=== PATIENT | female | born 1940 | race Caucasian/White ===

== ENCOUNTER 2021-03-13 17:31 | Inpatient (IN) | payer OTHER ==
[2021-03-13] MEDS ORDERED: SODIUM CHLORIDE 0.9% 500 ML INFUS.BAG IV ONE (17:43)
[2021-03-13 19:29] LABS: HEMATOCRIT 24.6 % (32.4-45.2); HEMOGLOBIN 7.7 GM/dL (10.7-15.3); MCH 27.6 pg (25.7-33.7); MCHC 31.5 g/dl (32.0-36.0); MEAN CELL VOLUME 87.6 fl (80-96); MEAN PLT VOLUME 7.9 fl (7.5-11.1); PLATELET COUNT 502 10^3/uL (134-434); RDW 20.4 % (11.6-15.6)
[2021-03-13 19:35] LABS: INR 1.43 (0.83-1.09); PROTHROMBIN TIME (PATIENT) 16.1 SEC (9.7-13.0)
[2021-03-13 19:47] LABS: CALCIUM 9.2 mg/dL (8.5-10.1)
[2021-03-13 19:48] LABS: BLOOD UREA NITROGEN 58.7 mg/dL (7-18)
[2021-03-13 19:51] LABS: CREATININE 3.6 mg/dL (0.55-1.3)
[2021-03-13] MEDS ORDERED: VANCOMYCIN 1 GM in D5W (PRE-DOCKED) 1,000 MG/250 ML IVPB ONE (19:52)
[2021-03-13 19:53] LABS: BILIRUBIN,TOTAL 0.2 mg/dL (0.2-1); TOT PROT 7.5 g/dl (6.4-8.2)
[2021-03-13] MEDS ORDERED: CEFEPIME HCL/D5W 1 GM/50 ML BAG IVPB ONE (19:54)
[2021-03-13] MEDS ORDERED: VANCOMYCIN 1 GRAM (PRE-DOCKED) 1,000 MG/250 ML BAG IVPB ONE (20:16)
[2021-03-13] MEDS ORDERED: CEFEPIME 1 GM/100 ML BAG IVPB ONE (20:16)
[2021-03-13 21:53] LABS: ANISOCYTOSIS 1+; MACROCYTOSIS 0; PLATELET ESTIMATE INCREASED
[2021-03-14] MEDS ORDERED: PATIENT'S OWN MEDICATION (NON-FORMULARY) (Ipratropium/Albuterol Sulfate 1 PUFF Inhaler) IH PRN (00:06)
[2021-03-14] MEDS ORDERED: ACETAMINOPHEN 650 MG/20.3 ML ORAL SOLUTION (CUPS) PEG PRN (03:37)
[2021-03-14] MEDS: APIXABAN 2.5 MG TABLET GT SCH ×3 (04:00→22:50)
[2021-03-14] MEDS: MIDODRINE HCL 5 MG TABLET GT SCH ×4 (04:00→19:29)
[2021-03-14] MEDS ORDERED: APIXABAN 2.5 MG TABLET ONE ×2 (06:32→08:38)
[2021-03-14] MEDS: levETIRAcetam 500 MG/5 ML ORAL SOLUTION (UNIT-DOSE CUPS) GT SCH ×2 (06:50→19:29)
[2021-03-14 08:13] LABS: BASO % 0.5 % (0-2.0); EOS % 1.1 % (0-4.5); HEMATOCRIT 26.6 % (32.4-45.2); HEMOGLOBIN 8.4 GM/dL (10.7-15.3); LYMPH % 5.4 % (8-40); MCHC 31.7 g/dl (32.0-36.0); MEAN CELL VOLUME 88.3 fl (80-96); MEAN PLT VOLUME 7.9 fl (7.5-11.1); MONO % 9.1 % (3.8-10.2); NEUT % 83.9 % (42.8-82.8); PLATELET COUNT 495 10^3/uL (134-434); RBC 3.02 M/mm3 (3.60-5.2); RDW 20.2 % (11.6-15.6); WHITE BLOOD COUNT 21.5 K/mm3 (4.0-10.0)
[2021-03-14 08:30] LABS: ALBUMIN 2.1 g/dl (3.4-5.0); CALCIUM 10.2 mg/dL (8.5-10.1)
[2021-03-14 08:32] LABS: BLOOD UREA NITROGEN 63.8 mg/dL (7-18)
[2021-03-14 08:35] LABS: BILIRUBIN,TOTAL 0.6 mg/dL (0.2-1); TOT PROT 7.8 g/dl (6.4-8.2)
[2021-03-14] MEDS ORDERED: METOPROLOL TARTRATE 25 MG TABLET (FP) ONE (08:37)
[2021-03-14] MEDS ORDERED: ASPIRIN 81 MG CHEWABLE TABLETS ONE (08:37)
[2021-03-14] MEDS ORDERED: ZINC SULFATE 220 MG CAPSULE (FP) ONE (08:38)
[2021-03-14] MEDS ORDERED: AMIODARONE HCL 200 MG TABLET ONE (08:38)
[2021-03-14] MEDS ORDERED: ALBUTEROL SO4 2.5/IPRATROPIUM 0.5 INH SOL 3 ML VIAL.NEB. NEB PRN (09:16)
[2021-03-14] MEDS: BUDESONIDE 0.5 MG/2 ML INH SUSP VIAL NEB SCH ×2 (09:17→21:05)
[2021-03-14 09:30] LABS: ANISOCYTOSIS 0; MACROCYTOSIS 0; PLATELET ESTIMATE NORMAL; TARGET CELLS 1+
[2021-03-14] MEDS: ZINC SULFATE 220 MG CAPSULE (FP) GT SCH (09:49)
[2021-03-14] MEDS: METOPROLOL TARTRATE 25 MG TABLET (FP) GT SCH ×2 (09:49→22:50)
[2021-03-14] MEDS: ASPIRIN 81 MG CHEWABLE TABLETS GT SCH (09:49)
[2021-03-14] MEDS: FAMOTIDINE 40 MG/5 ML ORAL SUSPENSION NR SCH (09:50)
[2021-03-14] MEDS ORDERED: AMIODARONE HCL 200 MG TABLET GT SCH (10:00)
[2021-03-14 11:33] LABS: EPI CELLS 9 /uL (0-25.1); HYALINE CASTS 8 /uL (0-3.1); URINE APPEARANCE TURBID; URINE BILIRUBIN 2+ (NEGATIVE); URINE COLOR ORANGE; URINE GLUCOSE (UA) NEGATIVE (NEGATIVE); URINE KETONE NEGATIVE (NEGATIVE); URINE LEUK ESTERASE 3+ (NEGATIVE); URINE NITRITE POSITIVE (NEGATIVE); URINE PROTEIN 3+ (NEGATIVE); URINE RBC 469 /uL (0-23.9); URINE WBC 957 /uL (0-25.8)
[2021-03-14 11:45] LABS: YEAST PRESENT (NEGATIVE)
[2021-03-14] MEDS ORDERED: MEROPENEM 1 GM in DEXTROSE 5%-WATER 100 ML IVPB SCH (18:00)
[2021-03-14] MEDS ORDERED: MEROPENEM 1 GM in DEXTROSE 5%-WATER 100 ML IVPB ONE (18:15)
[2021-03-14] MEDS ORDERED: MEROPENEM 1 GM VIAL (RESTRICTED TO ID) IVPB ONE (18:30)
[2021-03-14] MEDS ORDERED: MEROPENEM 500 MG in DEXTROSE 5%-WATER 100 ML IVPB SCH (18:45)
[2021-03-14] MEDS ORDERED: CEFEPIME 0.5 GM in DEXTROSE 5%-WATER - 100 ML IVPB SCH (20:00)
[2021-03-14] MEDS ORDERED: PT OWN MED DRAWER 7, Y5N ONE (23:10)
[2021-03-15] MEDS ORDERED: MEROPENEM 500 MG VIAL (RESTRICTED TO ID) IVPB ONE ×2 (06:35→18:02)
[2021-03-15] MEDS ORDERED: PT OWN MED DRAWER 7, Y5N ONE ×4 (06:36→10:44)
[2021-03-15] MEDS ORDERED: DEXTROSE 5%-WATER 100 ML IVPB ONE ×2 (06:36→18:02)
[2021-03-15] MEDS: levETIRAcetam 500 MG/5 ML ORAL SOLUTION (UNIT-DOSE CUPS) GT SCH ×2 (06:53→18:12)
[2021-03-15] MEDS: MEROPENEM 500 MG in DEXTROSE 5%-WATER 100 ML IVPB SCH ×2 (06:53→18:12)
[2021-03-15 07:03] LABS: BASO % 0.8 % (0-2.0); EOS % 2.6 % (0-4.5); HEMATOCRIT 25.2 % (32.4-45.2); HEMOGLOBIN 8.1 GM/dL (10.7-15.3); MCH 28.5 pg (25.7-33.7); MCHC 32.3 g/dl (32.0-36.0); MEAN CELL VOLUME 88.3 fl (80-96); MEAN PLT VOLUME 7.6 fl (7.5-11.1); MONO % 8.7 % (3.8-10.2); NEUT % 81.9 % (42.8-82.8); PLATELET COUNT 452 10^3/uL (134-434); RBC 2.86 M/mm3 (3.60-5.2); WHITE BLOOD COUNT 18.6 K/mm3 (4.0-10.0)
[2021-03-15 07:31] LABS: ALBUMIN 1.9 g/dl (3.4-5.0); BLOOD UREA NITROGEN 76.2 mg/dL (7-18); CALCIUM 9.5 mg/dL (8.5-10.1)
[2021-03-15 07:32] LABS: BILIRUBIN,TOTAL 0.2 mg/dL (0.2-1); MAGNESIUM 3.2 mg/dL (1.8-2.4)
[2021-03-15 07:33] LABS: TOT PROT 7.1 g/dl (6.4-8.2)
[2021-03-15 07:34] LABS: CREATININE 4.9 mg/dL (0.55-1.3)
[2021-03-15] MEDS: BUDESONIDE 0.5 MG/2 ML INH SUSP VIAL NEB SCH ×2 (07:35→19:54)
[2021-03-15] MEDS: MIDODRINE HCL 5 MG TABLET GT SCH ×4 (07:43→18:12)
[2021-03-15] MEDS ORDERED: SODIUM CHLORIDE 250 ML IV PRN (07:53)
[2021-03-15] MEDS ORDERED: EPOETIN ALFA-EPBX 4,000 UNIT/ML VIAL SQ ONE (09:00)
[2021-03-15 10:03] LABS: N-TERMINAL BNP 7175.8 pg/ml (5-450)
[2021-03-15] MEDS: METOPROLOL TARTRATE 25 MG TABLET (FP) GT SCH (10:45)
[2021-03-15] MEDS: FAMOTIDINE 40 MG/5 ML ORAL SUSPENSION NR SCH (10:45)
[2021-03-15] MEDS: ZINC SULFATE 220 MG CAPSULE (FP) GT SCH (10:45)
[2021-03-15] MEDS: APIXABAN 2.5 MG TABLET GT SCH (10:45)
[2021-03-15] MEDS: ASPIRIN 81 MG CHEWABLE TABLETS GT SCH (10:45)
[2021-03-15] MEDS ORDERED: PROPOFOL 200 MG/20 ML VIAL IVPUSH ONE ×2 (12:45→13:08)
[2021-03-15] MEDS ORDERED: PROPOFOL 1,000,000 MCG/100 ML VIAL ONE (12:48)
[2021-03-15 13:09] VITALS: BMI 29.4
[2021-03-15] MEDS ORDERED: SODIUM CHLORIDE 500 ML IV STA ×2 (13:13→18:37)
[2021-03-16] MEDS: APIXABAN 2.5 MG TABLET GT SCH ×3 (00:09→21:18)
[2021-03-16] MEDS: METOPROLOL TARTRATE 25 MG TABLET (FP) GT SCH ×3 (00:09→21:18)
[2021-03-16] MEDS ORDERED: DEXTROSE 5%-WATER 100 ML IVPB ONE ×2 (05:20→18:12)
[2021-03-16] MEDS ORDERED: MEROPENEM 500 MG VIAL (RESTRICTED TO ID) IVPB ONE ×2 (05:20→18:12)
[2021-03-16] MEDS ORDERED: PT OWN MED DRAWER 7, Y5N ONE ×3 (05:26→17:32)
[2021-03-16] MEDS: levETIRAcetam 500 MG/5 ML ORAL SOLUTION (UNIT-DOSE CUPS) GT SCH ×2 (06:01→17:29)
[2021-03-16] MEDS: MEROPENEM 500 MG in DEXTROSE 5%-WATER 100 ML IVPB SCH ×2 (06:01→18:13)
[2021-03-16 07:37] LABS: BASO % 0.7 % (0-2.0); EOS % 3.8 % (0-4.5); HEMATOCRIT 25.9 % (32.4-45.2); HEMOGLOBIN 8.3 GM/dL (10.7-15.3); LYMPH % 5.2 % (8-40); MCH 28.2 pg (25.7-33.7); MEAN PLT VOLUME 7.9 fl (7.5-11.1); NEUT % 84.3 % (42.8-82.8); PLATELET COUNT 457 10^3/uL (134-434); RBC 2.94 M/mm3 (3.60-5.2); RDW 19.8 % (11.6-15.6); WHITE BLOOD COUNT 16.1 K/mm3 (4.0-10.0)
[2021-03-16 07:54] LABS: CALCIUM 9.3 mg/dL (8.5-10.1)
[2021-03-16 07:55] LABS: ALBUMIN 2.1 g/dl (3.4-5.0); MAGNESIUM 2.5 mg/dL (1.8-2.4)
[2021-03-16 07:58] LABS: CREATININE 2.9 mg/dL (0.55-1.3); PHOSPHOROUS 2.8 mg/dL (2.5-4.9)
[2021-03-16 07:59] LABS: BILIRUBIN,TOTAL 0.3 mg/dL (0.2-1)
[2021-03-16 08:00] LABS: TOT PROT 6.9 g/dl (6.4-8.2)
[2021-03-16 08:21] LABS: BLOOD UREA NITROGEN 31.7 mg/dL (7-18)
[2021-03-16] MEDS: BUDESONIDE 0.5 MG/2 ML INH SUSP VIAL NEB SCH ×2 (08:44→20:40)
[2021-03-16] MEDS ORDERED: SODIUM CHLORIDE 250 ML IV PRN (10:45)
[2021-03-16] MEDS: ASPIRIN 81 MG CHEWABLE TABLETS GT SCH (11:40)
[2021-03-16] MEDS: ZINC SULFATE 220 MG CAPSULE (FP) GT SCH (11:40)
[2021-03-16] MEDS: MIDODRINE HCL 5 MG TABLET GT SCH ×3 (11:40→18:12)
[2021-03-16] MEDS: FAMOTIDINE 40 MG/5 ML ORAL SUSPENSION NR SCH (11:42)
[2021-03-16] MEDS ORDERED: VANCOMYCIN 1 GM in D5W (PRE-DOCKED) 1,000 MG/250 ML IVPB ONE (14:55)
[2021-03-17] MEDS ORDERED: MEROPENEM 500 MG VIAL (RESTRICTED TO ID) IVPB ONE ×2 (05:57→16:50)
[2021-03-17] MEDS ORDERED: DEXTROSE 5%-WATER 100 ML IVPB ONE ×2 (05:58→16:50)
[2021-03-17] MEDS ORDERED: PT OWN MED DRAWER 7, Y5N ONE ×3 (05:58→16:51)
[2021-03-17] MEDS: MEROPENEM 500 MG in DEXTROSE 5%-WATER 100 ML IVPB SCH ×2 (06:00→18:04)
[2021-03-17] MEDS: levETIRAcetam 500 MG/5 ML ORAL SOLUTION (UNIT-DOSE CUPS) GT SCH ×2 (06:00→17:17)
[2021-03-17 06:59] LABS: BASO % 1.2 % (0-2.0); EOS % 4.5 % (0-4.5); HEMATOCRIT 24.7 % (32.4-45.2); HEMOGLOBIN 8.1 GM/dL (10.7-15.3); LYMPH % 4.8 % (8-40); MCH 28.8 pg (25.7-33.7); MCHC 32.6 g/dl (32.0-36.0); MEAN CELL VOLUME 88.5 fl (80-96); MEAN PLT VOLUME 7.7 fl (7.5-11.1); MONO % 5.4 % (3.8-10.2); NEUT % 84.1 % (42.8-82.8); PLATELET COUNT 438 10^3/uL (134-434); RDW 19.8 % (11.6-15.6); WHITE BLOOD COUNT 17.5 K/mm3 (4.0-10.0)
[2021-03-17 07:24] LABS: CALCIUM 9.3 mg/dL (8.5-10.1)
[2021-03-17 07:25] LABS: ALBUMIN 1.8 g/dl (3.4-5.0); BLOOD UREA NITROGEN 43.3 mg/dL (7-18); MAGNESIUM 2.4 mg/dL (1.8-2.4)
[2021-03-17 07:28] LABS: PHOSPHOROUS 3.5 mg/dL (2.5-4.9)
[2021-03-17 07:29] LABS: BILIRUBIN,TOTAL 0.7 mg/dL (0.2-1)
[2021-03-17 07:30] LABS: TOT PROT 6.7 g/dl (6.4-8.2)
[2021-03-17] MEDS: BUDESONIDE 0.5 MG/2 ML INH SUSP VIAL NEB SCH ×2 (08:26→20:45)
[2021-03-17] MEDS: APIXABAN 2.5 MG TABLET GT SCH ×2 (11:08→21:31)
[2021-03-17] MEDS: ZINC SULFATE 220 MG CAPSULE (FP) GT SCH (11:08)
[2021-03-17] MEDS: METOPROLOL TARTRATE 25 MG TABLET (FP) GT SCH ×2 (11:09→21:31)
[2021-03-17] MEDS: ASPIRIN 81 MG CHEWABLE TABLETS GT SCH (11:09)
[2021-03-17] MEDS: MIDODRINE HCL 5 MG TABLET GT SCH ×3 (11:10→17:10)
[2021-03-17] MEDS: FAMOTIDINE 40 MG/5 ML ORAL SUSPENSION NR SCH (11:18)
[2021-03-18] MEDS ORDERED: MEROPENEM 500 MG VIAL (RESTRICTED TO ID) IVPB ONE ×2 (05:55→16:28)
[2021-03-18] MEDS ORDERED: DEXTROSE 5%-WATER 100 ML IVPB ONE ×2 (05:55→16:28)
[2021-03-18] MEDS ORDERED: PT OWN MED DRAWER 7, Y5N ONE ×2 (05:56→09:45)
[2021-03-18] MEDS: levETIRAcetam 500 MG/5 ML ORAL SOLUTION (UNIT-DOSE CUPS) GT SCH ×2 (06:02→17:19)
[2021-03-18] MEDS: MEROPENEM 500 MG in DEXTROSE 5%-WATER 100 ML IVPB SCH ×2 (06:02→18:04)
[2021-03-18 06:43] LABS: HEMATOCRIT 25.8 % (32.4-45.2); HEMOGLOBIN 8.2 GM/dL (10.7-15.3); MCH 28.1 pg (25.7-33.7); MCHC 31.6 g/dl (32.0-36.0); MEAN CELL VOLUME 88.9 fl (80-96); MEAN PLT VOLUME 7.8 fl (7.5-11.1); PLATELET COUNT 444 10^3/uL (134-434); RBC 2.91 M/mm3 (3.60-5.2); RDW 19.7 % (11.6-15.6); WHITE BLOOD COUNT 15.6 K/mm3 (4.0-10.0)
[2021-03-18 06:56] LABS: CALCIUM 9.5 mg/dL (8.5-10.1)
[2021-03-18 06:57] LABS: BLOOD UREA NITROGEN 25.4 mg/dL (7-18)
[2021-03-18 07:00] LABS: CREATININE 2.8 mg/dL (0.55-1.3)
[2021-03-18 07:02] LABS: BILIRUBIN,TOTAL 0.3 mg/dL (0.2-1); TOT PROT 6.9 g/dl (6.4-8.2)
[2021-03-18] MEDS: METOPROLOL TARTRATE 25 MG TABLET (FP) GT SCH ×2 (09:43→21:15)
[2021-03-18] MEDS: APIXABAN 2.5 MG TABLET GT SCH ×2 (09:46→21:15)
[2021-03-18] MEDS: ZINC SULFATE 220 MG CAPSULE (FP) GT SCH (09:46)
[2021-03-18] MEDS: ASPIRIN 81 MG CHEWABLE TABLETS GT SCH (09:46)
[2021-03-18] MEDS: MIDODRINE HCL 5 MG TABLET GT SCH ×3 (09:46→17:19)
[2021-03-18] MEDS: FAMOTIDINE 40 MG/5 ML ORAL SUSPENSION NR SCH (09:46)
[2021-03-18] MEDS: BUDESONIDE 0.5 MG/2 ML INH SUSP VIAL NEB SCH ×2 (09:53→21:00)
[2021-03-18 11:32] LABS: MAGNESIUM 2.5 mg/dL (1.8-2.4)
[2021-03-19] MEDS: levETIRAcetam 500 MG/5 ML ORAL SOLUTION (UNIT-DOSE CUPS) GT SCH ×2 (05:33→18:58)
[2021-03-19] MEDS ORDERED: MEROPENEM 500 MG VIAL (RESTRICTED TO ID) IVPB ONE ×2 (05:54→18:11)
[2021-03-19] MEDS ORDERED: DEXTROSE 5%-WATER 100 ML IVPB ONE ×2 (05:55→18:11)
[2021-03-19] MEDS: MEROPENEM 500 MG in DEXTROSE 5%-WATER 100 ML IVPB SCH ×2 (06:00→18:19)
[2021-03-19 06:40] LABS: HEMATOCRIT 24.9 % (32.4-45.2); HEMOGLOBIN 7.9 GM/dL (10.7-15.3); MCH 28.2 pg (25.7-33.7); MCHC 31.8 g/dl (32.0-36.0); MEAN CELL VOLUME 88.4 fl (80-96); MEAN PLT VOLUME 7.7 fl (7.5-11.1); PLATELET COUNT 437 10^3/uL (134-434); RBC 2.82 M/mm3 (3.60-5.2); RDW 20.2 % (11.6-15.6); WHITE BLOOD COUNT 17.1 K/mm3 (4.0-10.0)
[2021-03-19 06:54] LABS: CALCIUM 9.4 mg/dL (8.5-10.1)
[2021-03-19 06:55] LABS: BLOOD UREA NITROGEN 40.7 mg/dL (7-18); MAGNESIUM 2.7 mg/dL (1.8-2.4)
[2021-03-19 06:58] LABS: BILIRUBIN,TOTAL 0.3 mg/dL (0.2-1); CREATININE 3.8 mg/dL (0.55-1.3); PHOSPHOROUS 3.5 mg/dL (2.5-4.9); TOT PROT 6.7 g/dl (6.4-8.2)
[2021-03-19] MEDS: BUDESONIDE 0.5 MG/2 ML INH SUSP VIAL NEB SCH ×2 (08:52→20:25)
[2021-03-19] MEDS: APIXABAN 2.5 MG TABLET GT SCH ×2 (09:12→21:27)
[2021-03-19] MEDS: ASPIRIN 81 MG CHEWABLE TABLETS GT SCH (09:12)
[2021-03-19] MEDS: FAMOTIDINE 40 MG/5 ML ORAL SUSPENSION NR SCH (09:13)
[2021-03-19] MEDS ORDERED: PT OWN MED DRAWER 7, Y5N ONE ×3 (09:28→18:11)
[2021-03-19] MEDS: MIDODRINE HCL 5 MG TABLET GT SCH ×3 (10:00→18:19)
[2021-03-19] MEDS: ZINC SULFATE 220 MG CAPSULE (FP) GT SCH (10:13)
[2021-03-19] MEDS: METOPROLOL TARTRATE 25 MG TABLET (FP) GT SCH ×2 (12:56→21:02)
[2021-03-19] MEDS: AMINO ACIDS/PROTEIN HYDROLYS 30 ML LIQUID.PKT PO SCH (18:19)
[2021-03-20] MEDS ORDERED: MEROPENEM 500 MG VIAL (RESTRICTED TO ID) IVPB ONE ×2 (05:55→17:49)
[2021-03-20] MEDS ORDERED: DEXTROSE 5%-WATER 100 ML IVPB ONE ×2 (05:56→17:49)
[2021-03-20] MEDS: levETIRAcetam 500 MG/5 ML ORAL SOLUTION (UNIT-DOSE CUPS) GT SCH ×2 (06:00→17:52)
[2021-03-20] MEDS: MEROPENEM 500 MG in DEXTROSE 5%-WATER 100 ML IVPB SCH ×2 (06:00→18:02)
[2021-03-20] MEDS ORDERED: SODIUM CHLORIDE 250 ML IV PRN (07:00)
[2021-03-20] MEDS ORDERED: EPOETIN ALFA-EPBX 10,000 UNIT/ML VIAL SQ ONE (07:00)
[2021-03-20 07:46] LABS: HEMATOCRIT 24.9 % (32.4-45.2); MCH 28.2 pg (25.7-33.7); MCHC 32.4 g/dl (32.0-36.0); MEAN CELL VOLUME 87.1 fl (80-96); MEAN PLT VOLUME 8.3 fl (7.5-11.1); PLATELET COUNT 416 10^3/uL (134-434); RBC 2.85 M/mm3 (3.60-5.2)
[2021-03-20] MEDS: AMINO ACIDS/PROTEIN HYDROLYS 30 ML LIQUID.PKT PO SCH ×2 (07:56→17:52)
[2021-03-20] MEDS: BUDESONIDE 0.5 MG/2 ML INH SUSP VIAL NEB SCH ×2 (08:06→20:53)
[2021-03-20 08:12] LABS: CALCIUM 9.5 mg/dL (8.5-10.1)
[2021-03-20] MEDS ORDERED: SODIUM CHLORIDE 250 ML IV STA (08:12)
[2021-03-20 08:13] LABS: ALBUMIN 1.8 g/dl (3.4-5.0); BLOOD UREA NITROGEN 57.1 mg/dL (7-18)
[2021-03-20 08:16] LABS: CREATININE 4.7 mg/dL (0.55-1.3)
[2021-03-20 08:17] LABS: BILIRUBIN,TOTAL 0.4 mg/dL (0.2-1); TOT PROT 6.8 g/dl (6.4-8.2)
[2021-03-20] MEDS ORDERED: PT OWN MED DRAWER 7, Y5N ONE ×2 (09:18→17:50)
[2021-03-20] MEDS: ASPIRIN 81 MG CHEWABLE TABLETS GT SCH (09:38)
[2021-03-20] MEDS: FAMOTIDINE 40 MG/5 ML ORAL SUSPENSION NR SCH (09:38)
[2021-03-20] MEDS: VITAMIN B COMP W-C 1 EA TABLET (NEPHRO-VITE) PO SCH (09:38)
[2021-03-20] MEDS: ZINC SULFATE 220 MG CAPSULE (FP) GT SCH (09:38)
[2021-03-20] MEDS: MIDODRINE HCL 5 MG TABLET GT SCH ×3 (09:39→17:52)
[2021-03-20] MEDS: APIXABAN 2.5 MG TABLET GT SCH ×2 (09:39→22:46)
[2021-03-20] MEDS: METOPROLOL TARTRATE 25 MG TABLET (FP) GT SCH ×2 (09:39→22:46)
[2021-03-21] MEDS ORDERED: MEROPENEM 500 MG VIAL (RESTRICTED TO ID) IVPB ONE ×2 (05:32→18:45)
[2021-03-21] MEDS ORDERED: DEXTROSE 5%-WATER 100 ML IVPB ONE ×2 (05:32→18:45)
[2021-03-21] MEDS: levETIRAcetam 500 MG/5 ML ORAL SOLUTION (UNIT-DOSE CUPS) GT SCH ×2 (06:49→18:29)
[2021-03-21] MEDS: MEROPENEM 500 MG in DEXTROSE 5%-WATER 100 ML IVPB SCH ×2 (06:49→19:30)
[2021-03-21 07:57] LABS: HEMATOCRIT 22.9 % (32.4-45.2); HEMOGLOBIN 7.3 GM/dL (10.7-15.3); MCH 28.2 pg (25.7-33.7); MCHC 31.8 g/dl (32.0-36.0); MEAN CELL VOLUME 88.5 fl (80-96); MEAN PLT VOLUME 7.9 fl (7.5-11.1); PLATELET COUNT 376 10^3/uL (134-434); RBC 2.59 M/mm3 (3.60-5.2); RDW 20.1 % (11.6-15.6)
[2021-03-21] MEDS: BUDESONIDE 0.5 MG/2 ML INH SUSP VIAL NEB SCH ×2 (08:04→20:40)
[2021-03-21 08:17] LABS: ALBUMIN 1.9 g/dl (3.4-5.0); CALCIUM 9.4 mg/dL (8.5-10.1)
[2021-03-21 08:18] LABS: BLOOD UREA NITROGEN 34.6 mg/dL (7-18); MAGNESIUM 2.7 mg/dL (1.8-2.4)
[2021-03-21 08:20] LABS: CREATININE 2.9 mg/dL (0.55-1.3)
[2021-03-21 08:21] LABS: PHOSPHOROUS 2.6 mg/dL (2.5-4.9)
[2021-03-21 08:22] LABS: BILIRUBIN,TOTAL 0.2 mg/dL (0.2-1); TOT PROT 6.6 g/dl (6.4-8.2)
[2021-03-21] MEDS ORDERED: PT OWN MED DRAWER 7, Y5N ONE (08:55)
[2021-03-21] MEDS: AMINO ACIDS/PROTEIN HYDROLYS 30 ML LIQUID.PKT PO SCH ×2 (09:25→18:29)
[2021-03-21] MEDS: APIXABAN 2.5 MG TABLET GT SCH ×2 (09:26→22:35)
[2021-03-21] MEDS: METOPROLOL TARTRATE 25 MG TABLET (FP) GT SCH ×2 (09:26→22:35)
[2021-03-21] MEDS: VITAMIN B COMP W-C 1 EA TABLET (NEPHRO-VITE) PO SCH (09:26)
[2021-03-21] MEDS: MIDODRINE HCL 5 MG TABLET GT SCH ×3 (09:26→18:29)
[2021-03-21] MEDS: ASPIRIN 81 MG CHEWABLE TABLETS GT SCH (09:26)
[2021-03-21] MEDS: ZINC SULFATE 220 MG CAPSULE (FP) GT SCH (09:26)
[2021-03-21] MEDS: FAMOTIDINE 40 MG/5 ML ORAL SUSPENSION NR SCH (09:26)
[2021-03-21] MEDS: NAPH,MB-DB/K PH,MBDB POWDER PACKET PO SCH ×2 (15:24→22:35)
[2021-03-22] MEDS: levETIRAcetam 500 MG/5 ML ORAL SOLUTION (UNIT-DOSE CUPS) GT SCH ×2 (06:15→17:19)
[2021-03-22 06:43] LABS: HEMATOCRIT 23.8 % (32.4-45.2); HEMOGLOBIN 7.7 GM/dL (10.7-15.3); MCH 28.6 pg (25.7-33.7); MCHC 32.1 g/dl (32.0-36.0); MEAN PLT VOLUME 7.9 fl (7.5-11.1); PLATELET COUNT 363 10^3/uL (134-434); RBC 2.68 M/mm3 (3.60-5.2); WHITE BLOOD COUNT 13.2 K/mm3 (4.0-10.0)
[2021-03-22 06:56] LABS: CALCIUM 8.9 mg/dL (8.5-10.1)
[2021-03-22 06:57] LABS: BLOOD UREA NITROGEN 58.4 mg/dL (7-18); MAGNESIUM 2.7 mg/dL (1.8-2.4)
[2021-03-22 06:59] LABS: CREATININE 4.2 mg/dL (0.55-1.3)
[2021-03-22 07:00] LABS: PHOSPHOROUS 3.7 mg/dL (2.5-4.9)
[2021-03-22] MEDS: MEROPENEM 500 MG in DEXTROSE 5%-WATER 100 ML IVPB SCH ×2 (07:01→19:11)
[2021-03-22] MEDS: BUDESONIDE 0.5 MG/2 ML INH SUSP VIAL NEB SCH ×2 (07:54→20:41)
[2021-03-22] MEDS: AMINO ACIDS/PROTEIN HYDROLYS 30 ML LIQUID.PKT PO SCH ×2 (08:05→17:19)
[2021-03-22] MEDS ORDERED: SODIUM CHLORIDE 0.9% 500 ML INFUS.BAG IV PRN (08:05)
[2021-03-22] MEDS ORDERED: FAMOTIDINE 40 MG/5 ML ORAL SUSPENSION NR SCH (10:00)
[2021-03-22] MEDS ORDERED: SODIUM CHLORIDE 250 ML IV PRN (10:09)
[2021-03-22] MEDS ORDERED: EPOETIN ALFA-EPBX 10,000 UNIT/ML VIAL SQ ONE (10:15)
[2021-03-22] MEDS ORDERED: PT OWN MED DRAWER 7, Y5N ONE (10:43)
[2021-03-22] MEDS: METOPROLOL TARTRATE 25 MG TABLET (FP) GT SCH ×2 (10:44→21:43)
[2021-03-22] MEDS: VITAMIN B COMP W-C 1 EA TABLET (NEPHRO-VITE) PO SCH (10:44)
[2021-03-22] MEDS: ZINC SULFATE 220 MG CAPSULE (FP) GT SCH (10:44)
[2021-03-22] MEDS: MIDODRINE HCL 5 MG TABLET GT SCH ×3 (10:44→17:21)
[2021-03-22] MEDS: ASPIRIN 81 MG CHEWABLE TABLETS GT SCH (10:44)
[2021-03-22] MEDS: APIXABAN 2.5 MG TABLET GT SCH ×2 (10:45→21:43)
[2021-03-22] MEDS: FAMOTIDINE 40 MG/5 ML ORAL SUSPENSION NR SCH (10:45)
[2021-03-22] MEDS: ALBUTEROL SO4 2.5/IPRATROPIUM 0.5 INH SOL 3 ML VIAL.NEB. NEB PRN (20:42)
[2021-03-23] MEDS: ALBUTEROL SO4 2.5/IPRATROPIUM 0.5 INH SOL 3 ML VIAL.NEB. NEB PRN (03:17)
[2021-03-23] MEDS: levETIRAcetam 500 MG/5 ML ORAL SOLUTION (UNIT-DOSE CUPS) GT SCH ×2 (06:18→17:37)
[2021-03-23] MEDS ORDERED: DEXTROSE 5%-WATER 100 ML IVPB ONE ×3 (06:19→18:52)
[2021-03-23] MEDS ORDERED: MEROPENEM 500 MG VIAL (RESTRICTED TO ID) IVPB ONE ×3 (06:19→18:52)
[2021-03-23] MEDS: MEROPENEM 500 MG in DEXTROSE 5%-WATER 100 ML IVPB SCH ×2 (06:21→18:50)
[2021-03-23 06:24] LABS: HEMATOCRIT 25.5 % (32.4-45.2); HEMOGLOBIN 8.1 GM/dL (10.7-15.3); MCH 28.3 pg (25.7-33.7); MCHC 31.9 g/dl (32.0-36.0); MEAN CELL VOLUME 88.8 fl (80-96); MEAN PLT VOLUME 7.7 fl (7.5-11.1); PLATELET COUNT 368 10^3/uL (134-434); RBC 2.87 M/mm3 (3.60-5.2); RDW 19.9 % (11.6-15.6); WHITE BLOOD COUNT 15.6 K/mm3 (4.0-10.0)
[2021-03-23 06:44] LABS: BLOOD UREA NITROGEN 39.5 mg/dL (7-18); CALCIUM 9.4 mg/dL (8.5-10.1)
[2021-03-23 06:47] LABS: CREATININE 2.9 mg/dL (0.55-1.3)
[2021-03-23] MEDS ORDERED: PT OWN MED DRAWER 7, Y5N ONE (07:45)
[2021-03-23] MEDS: BUDESONIDE 0.5 MG/2 ML INH SUSP VIAL NEB SCH ×2 (08:15→20:40)
[2021-03-23] MEDS: AMINO ACIDS/PROTEIN HYDROLYS 30 ML LIQUID.PKT PO SCH ×2 (08:59→17:35)
[2021-03-23] MEDS: ASPIRIN 81 MG CHEWABLE TABLETS GT SCH (10:17)
[2021-03-23] MEDS: MIDODRINE HCL 5 MG TABLET GT SCH ×3 (10:17→17:35)
[2021-03-23] MEDS: ZINC SULFATE 220 MG CAPSULE (FP) GT SCH (10:18)
[2021-03-23] MEDS: VITAMIN B COMP W-C 1 EA TABLET (NEPHRO-VITE) PO SCH (10:18)
[2021-03-23] MEDS: APIXABAN 2.5 MG TABLET GT SCH ×2 (10:18→22:02)
[2021-03-23] MEDS: METOPROLOL TARTRATE 25 MG TABLET (FP) GT SCH ×2 (10:19→22:02)
[2021-03-23] MEDS ORDERED: EPOETIN ALFA-EPBX 10,000 UNIT/ML VIAL SQ ONE (11:51)
[2021-03-23] MEDS: ACETAMINOPHEN 650 MG/20.3 ML ORAL SOLUTION (CUPS) PEG PRN (17:35)
[2021-03-24] MEDS ORDERED: MEROPENEM 500 MG VIAL (RESTRICTED TO ID) IVPB ONE ×2 (05:32→18:27)
[2021-03-24] MEDS ORDERED: DEXTROSE 5%-WATER 100 ML IVPB ONE ×2 (05:32→18:27)
[2021-03-24] MEDS: levETIRAcetam 500 MG/5 ML ORAL SOLUTION (UNIT-DOSE CUPS) GT SCH ×2 (05:37→18:32)
[2021-03-24] MEDS: MEROPENEM 500 MG in DEXTROSE 5%-WATER 100 ML IVPB SCH ×2 (06:01→18:33)
[2021-03-24 08:20] LABS: BASO % 0.6 % (0-2.0); EOS % 6.1 % (0-4.5); HEMATOCRIT 25.1 % (32.4-45.2); HEMOGLOBIN 7.8 GM/dL (10.7-15.3); LYMPH % 8.2 % (8-40); MCH 28.2 pg (25.7-33.7); MCHC 31.1 g/dl (32.0-36.0); MEAN CELL VOLUME 90.8 fl (80-96); MEAN PLT VOLUME 8.1 fl (7.5-11.1); MONO % 5.7 % (3.8-10.2); NEUT % 79.4 % (42.8-82.8); PLATELET COUNT 408 10^3/uL (134-434); RBC 2.76 M/mm3 (3.60-5.2); RDW 20.3 % (11.6-15.6); WHITE BLOOD COUNT 18.1 K/mm3 (4.0-10.0)
[2021-03-24] MEDS: BUDESONIDE 0.5 MG/2 ML INH SUSP VIAL NEB SCH ×2 (08:29→19:56)
[2021-03-24 08:35] LABS: CALCIUM 9.9 mg/dL (8.5-10.1)
[2021-03-24 08:36] LABS: BLOOD UREA NITROGEN 63.1 mg/dL (7-18); MAGNESIUM 2.8 mg/dL (1.8-2.4)
[2021-03-24] MEDS: MIDODRINE HCL 5 MG TABLET GT SCH ×3 (08:50→18:32)
[2021-03-24] MEDS ORDERED: SODIUM CHLORIDE 250 ML IV PRN (09:00)
[2021-03-24] MEDS ORDERED: EPOETIN ALFA-EPBX 10,000 UNIT/ML VIAL IVPUSH ONE (09:00)
[2021-03-24] MEDS: APIXABAN 2.5 MG TABLET GT SCH ×2 (11:19→21:39)
[2021-03-24] MEDS: ZINC SULFATE 220 MG CAPSULE (FP) GT SCH (11:19)
[2021-03-24] MEDS: ASPIRIN 81 MG CHEWABLE TABLETS GT SCH (11:19)
[2021-03-24] MEDS: AMINO ACIDS/PROTEIN HYDROLYS 30 ML LIQUID.PKT PO SCH ×2 (11:19→18:32)
[2021-03-24] MEDS: VITAMIN B COMP W-C 1 EA TABLET (NEPHRO-VITE) PO SCH (11:19)
[2021-03-24] MEDS: FAMOTIDINE 40 MG/5 ML ORAL SUSPENSION NR SCH (11:23)
[2021-03-24] MEDS: METOPROLOL TARTRATE 25 MG TABLET (FP) GT SCH ×2 (11:34→21:39)
[2021-03-25] MEDS ORDERED: MEROPENEM 500 MG VIAL (RESTRICTED TO ID) IVPB ONE ×2 (05:41→18:07)
[2021-03-25] MEDS ORDERED: DEXTROSE 5%-WATER 100 ML IVPB ONE ×2 (05:41→18:07)
[2021-03-25] MEDS: levETIRAcetam 500 MG/5 ML ORAL SOLUTION (UNIT-DOSE CUPS) GT SCH ×2 (06:25→17:59)
[2021-03-25] MEDS: MEROPENEM 500 MG in DEXTROSE 5%-WATER 100 ML IVPB SCH ×2 (06:26→18:08)
[2021-03-25] MEDS: BUDESONIDE 0.5 MG/2 ML INH SUSP VIAL NEB SCH ×2 (08:00→20:35)
[2021-03-25] MEDS: ASPIRIN 81 MG CHEWABLE TABLETS GT SCH (11:29)
[2021-03-25] MEDS: APIXABAN 2.5 MG TABLET GT SCH ×2 (11:29→21:35)
[2021-03-25] MEDS: VITAMIN B COMP W-C 1 EA TABLET (NEPHRO-VITE) PO SCH (11:29)
[2021-03-25] MEDS: ZINC SULFATE 220 MG CAPSULE (FP) GT SCH (11:29)
[2021-03-25] MEDS: MIDODRINE HCL 5 MG TABLET GT SCH ×3 (11:30→17:59)
[2021-03-25] MEDS: AMINO ACIDS/PROTEIN HYDROLYS 30 ML LIQUID.PKT PO SCH ×2 (11:30→17:59)
[2021-03-25 11:50] LABS: HEMATOCRIT 24.7 % (32.4-45.2); HEMOGLOBIN 7.8 GM/dL (10.7-15.3); MCH 28.2 pg (25.7-33.7); MCHC 31.4 g/dl (32.0-36.0); MEAN CELL VOLUME 89.7 fl (80-96); MEAN PLT VOLUME 7.8 fl (7.5-11.1); PLATELET COUNT 352 10^3/uL (134-434); RBC 2.75 M/mm3 (3.60-5.2); RDW 20.4 % (11.6-15.6); WHITE BLOOD COUNT 14.6 K/mm3 (4.0-10.0)
[2021-03-25 12:12] LABS: CALCIUM 10.1 mg/dL (8.5-10.1)
[2021-03-25 12:16] LABS: CREATININE 3.2 mg/dL (0.55-1.3)
[2021-03-25] MEDS: METOPROLOL TARTRATE 25 MG TABLET (FP) GT SCH ×2 (13:40→21:35)
[2021-03-25] MEDS ORDERED: PT OWN MED DRAWER 7, Y5N ONE ×3 (13:43→17:57)
[2021-03-25] MEDS: NYSTATIN 100,000 UNIT/GM TOPICAL CREAM 15 GM TUBE TP SCH ×2 (15:28→21:38)
[2021-03-26] MEDS: ACETAMINOPHEN 650 MG/20.3 ML ORAL SOLUTION (CUPS) PEG PRN (05:01)
[2021-03-26] MEDS: levETIRAcetam 500 MG/5 ML ORAL SOLUTION (UNIT-DOSE CUPS) GT SCH ×2 (05:18→17:32)
[2021-03-26] MEDS ORDERED: DEXTROSE 5%-WATER 100 ML IVPB ONE ×3 (06:38→17:34)
[2021-03-26] MEDS ORDERED: MEROPENEM 500 MG VIAL (RESTRICTED TO ID) IVPB ONE ×3 (06:38→17:34)
[2021-03-26] MEDS: MEROPENEM 500 MG in DEXTROSE 5%-WATER 100 ML IVPB SCH ×2 (06:46→18:22)
[2021-03-26] MEDS: ALBUTEROL SO4 2.5/IPRATROPIUM 0.5 INH SOL 3 ML VIAL.NEB. NEB PRN (07:35)
[2021-03-26] MEDS: BUDESONIDE 0.5 MG/2 ML INH SUSP VIAL NEB SCH ×2 (07:43→20:00)
[2021-03-26 10:15] LABS: HEMATOCRIT 24.7 % (32.4-45.2); HEMOGLOBIN 7.8 GM/dL (10.7-15.3); MCH 28.3 pg (25.7-33.7); MCHC 31.7 g/dl (32.0-36.0); MEAN CELL VOLUME 89.4 fl (80-96); MEAN PLT VOLUME 7.8 fl (7.5-11.1); PLATELET COUNT 384 10^3/uL (134-434); RBC 2.76 M/mm3 (3.60-5.2); RDW 21.2 % (11.6-15.6); WHITE BLOOD COUNT 14.8 K/mm3 (4.0-10.0)
[2021-03-26 10:49] LABS: BLOOD UREA NITROGEN 70.3 mg/dL (7-18)
[2021-03-26 10:51] LABS: CALCIUM 10.3 mg/dL (8.5-10.1)
[2021-03-26 10:52] LABS: CREATININE 4.4 mg/dL (0.55-1.3); PHOSPHOROUS 3.8 mg/dL (2.5-4.9)
[2021-03-26] MEDS: AMINO ACIDS/PROTEIN HYDROLYS 30 ML LIQUID.PKT PO SCH ×2 (11:08→17:32)
[2021-03-26] MEDS: METOPROLOL TARTRATE 25 MG TABLET (FP) GT SCH ×2 (11:08→21:55)
[2021-03-26] MEDS: ZINC SULFATE 220 MG CAPSULE (FP) GT SCH (11:08)
[2021-03-26] MEDS: VITAMIN B COMP W-C 1 EA TABLET (NEPHRO-VITE) PO SCH (11:08)
[2021-03-26] MEDS: MIDODRINE HCL 5 MG TABLET GT SCH ×3 (11:08→17:41)
[2021-03-26] MEDS: ASPIRIN 81 MG CHEWABLE TABLETS GT SCH (11:09)
[2021-03-26] MEDS: APIXABAN 2.5 MG TABLET GT SCH ×2 (11:09→21:55)
[2021-03-26] MEDS: NYSTATIN 100,000 UNIT/GM TOPICAL CREAM 15 GM TUBE TP SCH ×2 (11:09→22:06)
[2021-03-26] MEDS: FAMOTIDINE 40 MG/5 ML ORAL SUSPENSION NR SCH (11:09)
[2021-03-26] MEDS ORDERED: SODIUM CHLORIDE 250 ML IV PRN (11:09)
[2021-03-26 12:05] LABS: MAGNESIUM 2.8 mg/dL (1.8-2.4)
[2021-03-26] MEDS ORDERED: PT OWN MED DRAWER 7, Y5N ONE (21:48)
[2021-03-26] MEDS: BANATROL PLUS POWDER PACKET PEG SCH (21:56)
[2021-03-27] MEDS: BANATROL PLUS POWDER PACKET PEG SCH ×3 (05:06→21:54)
[2021-03-27] MEDS: levETIRAcetam 500 MG/5 ML ORAL SOLUTION (UNIT-DOSE CUPS) GT SCH ×2 (05:26→17:24)
[2021-03-27] MEDS ORDERED: MEROPENEM 500 MG VIAL (RESTRICTED TO ID) IVPB ONE ×2 (06:31→17:31)
[2021-03-27] MEDS ORDERED: DEXTROSE 5%-WATER 100 ML IVPB ONE ×2 (06:32→17:31)
[2021-03-27] MEDS: MEROPENEM 500 MG in DEXTROSE 5%-WATER 100 ML IVPB SCH ×2 (06:34→18:16)
[2021-03-27] MEDS ORDERED: EPOETIN ALFA-EPBX 10,000 UNIT/ML VIAL SQ ONE (07:00)
[2021-03-27 08:35] LABS: BASO % 0.8 % (0-2.0); EOS % 5.3 % (0-4.5); HEMATOCRIT 21.8 % (32.4-45.2); HEMOGLOBIN 7.1 GM/dL (10.7-15.3); LYMPH % 7.5 % (8-40); MCH 28.5 pg (25.7-33.7); MCHC 32.5 g/dl (32.0-36.0); MEAN CELL VOLUME 87.6 fl (80-96); MEAN PLT VOLUME 7.8 fl (7.5-11.1); MONO % 5.3 % (3.8-10.2); NEUT % 81.1 % (42.8-82.8); PLATELET COUNT 345 10^3/uL (134-434); RBC 2.49 M/mm3 (3.60-5.2); RDW 20.8 % (11.6-15.6)
[2021-03-27] MEDS: BUDESONIDE 0.5 MG/2 ML INH SUSP VIAL NEB SCH ×2 (08:36→20:09)
[2021-03-27] MEDS: ALBUTEROL SO4 2.5/IPRATROPIUM 0.5 INH SOL 3 ML VIAL.NEB. NEB PRN (08:37)
[2021-03-27 09:08] LABS: ALBUMIN 1.7 g/dl (3.4-5.0); BLOOD UREA NITROGEN 84.2 mg/dL (7-18); CALCIUM 9.4 mg/dL (8.5-10.1)
[2021-03-27 09:11] LABS: CREATININE 5.1 mg/dL (0.55-1.3); PHOSPHOROUS 4.4 mg/dL (2.5-4.9)
[2021-03-27 09:12] LABS: BILIRUBIN,TOTAL 0.7 mg/dL (0.2-1); TOT PROT 6.2 g/dl (6.4-8.2)
[2021-03-27 09:15] LABS: MAGNESIUM 2.9 mg/dL (1.8-2.4)
[2021-03-27 09:58] LABS: ANISOCYTOSIS 2+; MACROCYTOSIS 2+; OVALOCYTE 2+; PLATELET ESTIMATE NORMAL
[2021-03-27] MEDS: APIXABAN 2.5 MG TABLET GT SCH ×2 (11:53→21:55)
[2021-03-27] MEDS: AMINO ACIDS/PROTEIN HYDROLYS 30 ML LIQUID.PKT PO SCH ×2 (11:53→17:33)
[2021-03-27] MEDS: VITAMIN B COMP W-C 1 EA TABLET (NEPHRO-VITE) PO SCH (11:53)
[2021-03-27] MEDS: ASPIRIN 81 MG CHEWABLE TABLETS GT SCH (11:53)
[2021-03-27] MEDS: MIDODRINE HCL 5 MG TABLET GT SCH ×3 (11:53→17:24)
[2021-03-27] MEDS: METOPROLOL TARTRATE 25 MG TABLET (FP) GT SCH (11:53)
[2021-03-27] MEDS: NYSTATIN 100,000 UNIT/GM TOPICAL CREAM 15 GM TUBE TP SCH ×2 (11:53→21:55)
[2021-03-27] MEDS: ZINC SULFATE 220 MG CAPSULE (FP) GT SCH (11:53)
[2021-03-27] MEDS ORDERED: PT OWN MED DRAWER 7, Y5N ONE ×2 (13:46→21:39)
[2021-03-28] MEDS: METOPROLOL TARTRATE 25 MG TABLET (FP) GT SCH ×3 (00:01→21:11)
[2021-03-28] MEDS ORDERED: MEROPENEM 500 MG VIAL (RESTRICTED TO ID) IVPB ONE (04:59)
[2021-03-28] MEDS ORDERED: DEXTROSE 5%-WATER 100 ML IVPB ONE (04:59)
[2021-03-28] MEDS: levETIRAcetam 500 MG/5 ML ORAL SOLUTION (UNIT-DOSE CUPS) GT SCH ×2 (06:07→18:45)
[2021-03-28] MEDS: MEROPENEM 500 MG in DEXTROSE 5%-WATER 100 ML IVPB SCH (06:07)
[2021-03-28] MEDS: BANATROL PLUS POWDER PACKET PEG SCH ×3 (06:07→21:12)
[2021-03-28 08:13] LABS: HEMATOCRIT 22.6 % (32.4-45.2); HEMOGLOBIN 7.3 GM/dL (10.7-15.3); MCH 28.7 pg (25.7-33.7); MCHC 32.3 g/dl (32.0-36.0); MEAN CELL VOLUME 88.7 fl (80-96); MEAN PLT VOLUME 7.5 fl (7.5-11.1); PLATELET COUNT 341 10^3/uL (134-434); RBC 2.55 M/mm3 (3.60-5.2); RDW 21.2 % (11.6-15.6)
[2021-03-28 08:36] LABS: CALCIUM 9.5 mg/dL (8.5-10.1)
[2021-03-28] MEDS: BUDESONIDE 0.5 MG/2 ML INH SUSP VIAL NEB SCH ×2 (08:36→20:27)
[2021-03-28] MEDS: ALBUTEROL SO4 2.5/IPRATROPIUM 0.5 INH SOL 3 ML VIAL.NEB. NEB PRN (08:38)
[2021-03-28 08:40] LABS: CREATININE 3.1 mg/dL (0.55-1.3)
[2021-03-28 08:56] LABS: BLOOD UREA NITROGEN 38.3 mg/dL (7-18)
[2021-03-28] MEDS ORDERED: PT OWN MED DRAWER 7, Y5N ONE (11:47)
[2021-03-28] MEDS: ZINC SULFATE 220 MG CAPSULE (FP) GT SCH (12:20)
[2021-03-28] MEDS: MIDODRINE HCL 5 MG TABLET GT SCH ×3 (12:20→18:45)
[2021-03-28] MEDS: ASPIRIN 81 MG CHEWABLE TABLETS GT SCH (12:20)
[2021-03-28] MEDS: VITAMIN B COMP W-C 1 EA TABLET (NEPHRO-VITE) PO SCH (12:20)
[2021-03-28] MEDS: AMINO ACIDS/PROTEIN HYDROLYS 30 ML LIQUID.PKT PO SCH ×2 (12:20→18:45)
[2021-03-28] MEDS: NYSTATIN 100,000 UNIT/GM TOPICAL CREAM 15 GM TUBE TP SCH ×2 (12:21→21:11)
[2021-03-28] MEDS: APIXABAN 2.5 MG TABLET GT SCH ×2 (12:21→21:11)
[2021-03-28] MEDS: FAMOTIDINE 40 MG/5 ML ORAL SUSPENSION NR SCH (12:21)
[2021-03-28] MEDS: VANCOMYCIN 250 MG/5 ML ORAL SOLUTION PO SCH ×3 (12:24→23:16)
[2021-03-29] MEDS ORDERED: PT OWN MED DRAWER 7, Y5N ONE ×6 (05:24→22:03)
[2021-03-29] MEDS: levETIRAcetam 500 MG/5 ML ORAL SOLUTION (UNIT-DOSE CUPS) GT SCH ×2 (05:26→17:32)
[2021-03-29] MEDS: BANATROL PLUS POWDER PACKET PEG SCH ×3 (05:26→22:55)
[2021-03-29] MEDS: VANCOMYCIN 250 MG/5 ML ORAL SOLUTION PO SCH ×3 (05:27→17:31)
[2021-03-29] MEDS ORDERED: SODIUM CHLORIDE 250 ML IV PRN (07:00)
[2021-03-29] MEDS ORDERED: EPOETIN ALFA-EPBX 10,000 UNIT/ML VIAL SQ ONE ×2 (07:00→11:15)
[2021-03-29] MEDS: BUDESONIDE 0.5 MG/2 ML INH SUSP VIAL NEB SCH ×2 (08:05→20:10)
[2021-03-29 08:14] LABS: HEMATOCRIT 22.4 % (32.4-45.2); HEMOGLOBIN 7.1 GM/dL (10.7-15.3); MCH 28.5 pg (25.7-33.7); MCHC 31.7 g/dl (32.0-36.0); MEAN PLT VOLUME 7.8 fl (7.5-11.1); PLATELET COUNT 323 10^3/uL (134-434); RBC 2.49 M/mm3 (3.60-5.2); WHITE BLOOD COUNT 15.1 K/mm3 (4.0-10.0)
[2021-03-29 08:39] LABS: CALCIUM 9.5 mg/dL (8.5-10.1)
[2021-03-29 08:40] LABS: BLOOD UREA NITROGEN 60.6 mg/dL (7-18)
[2021-03-29 08:42] LABS: CREATININE 4.3 mg/dL (0.55-1.3)
[2021-03-29] MEDS: VITAMIN B COMP W-C 1 EA TABLET (NEPHRO-VITE) PO SCH (11:25)
[2021-03-29] MEDS: ZINC SULFATE 220 MG CAPSULE (FP) GT SCH (11:25)
[2021-03-29] MEDS: APIXABAN 2.5 MG TABLET GT SCH ×2 (11:26→22:11)
[2021-03-29] MEDS: ASPIRIN 81 MG CHEWABLE TABLETS GT SCH (11:26)
[2021-03-29] MEDS: MIDODRINE HCL 5 MG TABLET GT SCH ×3 (11:26→17:31)
[2021-03-29] MEDS: METOPROLOL TARTRATE 25 MG TABLET (FP) GT SCH ×2 (11:26→22:11)
[2021-03-29] MEDS: NYSTATIN 100,000 UNIT/GM TOPICAL CREAM 15 GM TUBE TP SCH ×2 (11:27→22:11)
[2021-03-29] MEDS: AMINO ACIDS/PROTEIN HYDROLYS 30 ML LIQUID.PKT PO SCH ×2 (11:27→17:31)
[2021-03-29] MEDS ORDERED: TIGECYCLINE 100 MG in DEXTROSE 5%-WATER - 100 ML IVPB ONE (13:00)
[2021-03-30] MEDS ORDERED: PT OWN MED DRAWER 7, Y5N ONE ×5 (00:31→23:54)
[2021-03-30] MEDS: VANCOMYCIN 250 MG/5 ML ORAL SOLUTION PO SCH ×5 (00:45→23:57)
[2021-03-30] MEDS: TIGECYCLINE 50 MG in DEXTROSE 5%-WATER - 100 ML IVPB SCH ×2 (01:25→14:59)
[2021-03-30] MEDS: levETIRAcetam 500 MG/5 ML ORAL SOLUTION (UNIT-DOSE CUPS) GT SCH ×2 (05:38→18:27)
[2021-03-30] MEDS: BANATROL PLUS POWDER PACKET PEG SCH ×3 (05:38→22:16)
[2021-03-30] MEDS: BUDESONIDE 0.5 MG/2 ML INH SUSP VIAL NEB SCH ×2 (08:45→19:45)
[2021-03-30 08:51] LABS: HEMATOCRIT 27.2 % (32.4-45.2); HEMOGLOBIN 8.7 GM/dL (10.7-15.3); MCH 28.6 pg (25.7-33.7); MCHC 32.1 g/dl (32.0-36.0); MEAN CELL VOLUME 88.9 fl (80-96); MEAN PLT VOLUME 7.9 fl (7.5-11.1); PLATELET COUNT 369 10^3/uL (134-434); RBC 3.06 M/mm3 (3.60-5.2); RDW 21.7 % (11.6-15.6); WHITE BLOOD COUNT 16.5 K/mm3 (4.0-10.0)
[2021-03-30] MEDS: AMINO ACIDS/PROTEIN HYDROLYS 30 ML LIQUID.PKT PO SCH ×2 (09:07→18:27)
[2021-03-30] MEDS: NYSTATIN 100,000 UNIT/GM TOPICAL CREAM 15 GM TUBE TP SCH ×2 (09:07→22:16)
[2021-03-30 09:21] LABS: CALCIUM 9.7 mg/dL (8.5-10.1)
[2021-03-30 09:23] LABS: BLOOD UREA NITROGEN 50.4 mg/dL (7-18)
[2021-03-30 09:26] LABS: CREATININE 2.9 mg/dL (0.55-1.3)
[2021-03-30 09:27] LABS: BILIRUBIN,TOTAL 0.7 mg/dL (0.2-1); TOT PROT 7.3 g/dl (6.4-8.2)
[2021-03-30 09:29] LABS: ALBUMIN 2.1 g/dl (3.4-5.0)
[2021-03-30] MEDS ORDERED: SODIUM CHLORIDE 250 ML IV PRN (09:56)
[2021-03-30] MEDS: METOPROLOL TARTRATE 25 MG TABLET (FP) GT SCH ×2 (12:06→22:16)
[2021-03-30] MEDS: MIDODRINE HCL 5 MG TABLET GT SCH ×3 (12:07→18:28)
[2021-03-30] MEDS: APIXABAN 2.5 MG TABLET GT SCH ×2 (12:07→22:16)
[2021-03-30] MEDS: ASPIRIN 81 MG CHEWABLE TABLETS GT SCH (12:07)
[2021-03-30] MEDS: ZINC SULFATE 220 MG CAPSULE (FP) GT SCH (12:07)
[2021-03-30] MEDS: VITAMIN B COMP W-C 1 EA TABLET (NEPHRO-VITE) PO SCH (12:08)
[2021-03-30] MEDS: FAMOTIDINE 40 MG/5 ML ORAL SUSPENSION NR SCH (12:08)
[2021-03-30] MEDS: LACTOBACILLUS ACIDOPHILUS 1 TABLET PO SCH (14:57)
[2021-03-31] MEDS: BANATROL PLUS POWDER PACKET PEG SCH ×2 (05:28→13:16)
[2021-03-31] MEDS: levETIRAcetam 500 MG/5 ML ORAL SOLUTION (UNIT-DOSE CUPS) GT SCH ×2 (05:29→17:43)
[2021-03-31] MEDS: VANCOMYCIN 250 MG/5 ML ORAL SOLUTION PO SCH ×2 (05:29→11:24)
[2021-03-31] MEDS: BUDESONIDE 0.5 MG/2 ML INH SUSP VIAL NEB SCH ×2 (08:05→20:05)
[2021-03-31 08:32] LABS: HEMATOCRIT 26.3 % (32.4-45.2); HEMOGLOBIN 8.3 GM/dL (10.7-15.3); MCH 28.3 pg (25.7-33.7); MCHC 31.5 g/dl (32.0-36.0); MEAN CELL VOLUME 89.8 fl (80-96); MEAN PLT VOLUME 8.2 fl (7.5-11.1); PLATELET COUNT 381 10^3/uL (134-434); RBC 2.93 M/mm3 (3.60-5.2); RDW 21.2 % (11.6-15.6); WHITE BLOOD COUNT 16.9 K/mm3 (4.0-10.0)
[2021-03-31] MEDS: AMINO ACIDS/PROTEIN HYDROLYS 30 ML LIQUID.PKT PO SCH ×2 (08:43→17:43)
[2021-03-31 08:52] LABS: CREATININE 3.8 mg/dL (0.55-1.3)
[2021-03-31 08:53] LABS: BLOOD UREA NITROGEN 87.4 mg/dL (7-18)
[2021-03-31] MEDS: EPOETIN ALFA-EPBX 10,000 UNIT/ML VIAL SQ ONE ×2 (09:49→11:11)
[2021-03-31] MEDS: MIDODRINE HCL 5 MG TABLET GT SCH ×3 (10:00→17:43)
[2021-03-31] MEDS: ZINC SULFATE 220 MG CAPSULE (FP) GT SCH (11:22)
[2021-03-31] MEDS: NYSTATIN 100,000 UNIT/GM TOPICAL CREAM 15 GM TUBE TP SCH ×2 (11:22→21:56)
[2021-03-31] MEDS: METOPROLOL TARTRATE 25 MG TABLET (FP) GT SCH ×2 (11:22→21:29)
[2021-03-31] MEDS: VITAMIN B COMP W-C 1 EA TABLET (NEPHRO-VITE) PO SCH (11:22)
[2021-03-31] MEDS: ASPIRIN 81 MG CHEWABLE TABLETS GT SCH (11:22)
[2021-03-31] MEDS: APIXABAN 2.5 MG TABLET GT SCH ×2 (11:22→21:28)
[2021-03-31] MEDS: LACTOBACILLUS ACIDOPHILUS 1 TABLET PO SCH (11:22)
[2021-03-31] MEDS ORDERED: PT OWN MED DRAWER 7, Y5N ONE ×3 (12:38→23:49)
[2021-03-31] MEDS: TIGECYCLINE 50 MG in DEXTROSE 5%-WATER - 100 ML IVPB SCH ×2 (13:16)
[2021-03-31] MEDS: VANCOMYCIN 250 MG/5 ML ORAL SOLUTION GT SCH ×2 (17:43→23:36)
[2021-03-31] MEDS ORDERED: AMIKACIN SO4 IVPB ONE (18:00)
[2021-03-31] MEDS ORDERED: SODIUM CHLORIDE IVPB ONE (18:00)
[2021-04-01] MEDS: TIGECYCLINE 50 MG in DEXTROSE 5%-WATER - 100 ML IVPB SCH ×2 (01:03→13:30)
[2021-04-01] MEDS: levETIRAcetam 500 MG/5 ML ORAL SOLUTION (UNIT-DOSE CUPS) GT SCH ×2 (05:39→17:27)
[2021-04-01] MEDS: VANCOMYCIN 250 MG/5 ML ORAL SOLUTION GT SCH ×4 (05:39→23:22)
[2021-04-01] MEDS: AMINO ACIDS/PROTEIN HYDROLYS 30 ML LIQUID.PKT PO SCH ×2 (08:51→17:27)
[2021-04-01] MEDS: BUDESONIDE 0.5 MG/2 ML INH SUSP VIAL NEB SCH ×2 (08:55→20:30)
[2021-04-01] MEDS ORDERED: PT OWN MED DRAWER 7, Y5N ONE ×2 (09:10→13:04)
[2021-04-01] MEDS: FAMOTIDINE 40 MG/5 ML ORAL SUSPENSION NR SCH (09:34)
[2021-04-01] MEDS: ASPIRIN 81 MG CHEWABLE TABLETS GT SCH (09:35)
[2021-04-01] MEDS: ZINC SULFATE 220 MG CAPSULE (FP) GT SCH (09:35)
[2021-04-01] MEDS: LACTOBACILLUS ACIDOPHILUS 1 TABLET PO SCH (09:35)
[2021-04-01] MEDS: NYSTATIN 100,000 UNIT/GM TOPICAL CREAM 15 GM TUBE TP SCH ×2 (09:35→21:44)
[2021-04-01] MEDS: METOPROLOL TARTRATE 25 MG TABLET (FP) GT SCH ×2 (09:35→21:21)
[2021-04-01] MEDS: MIDODRINE HCL 5 MG TABLET GT SCH ×3 (09:35→17:27)
[2021-04-01] MEDS: VITAMIN B COMP W-C 1 EA TABLET (NEPHRO-VITE) PO SCH (09:35)
[2021-04-01] MEDS: APIXABAN 2.5 MG TABLET GT SCH ×2 (09:35→21:43)
[2021-04-01 10:08] LABS: BASO % 0.9 % (0-2.0); EOS % 7.3 % (0-4.5); HEMATOCRIT 25.4 % (32.4-45.2); HEMOGLOBIN 8.1 GM/dL (10.7-15.3); LYMPH % 15.2 % (8-40); MCH 28.7 pg (25.7-33.7); MCHC 31.7 g/dl (32.0-36.0); MEAN CELL VOLUME 90.3 fl (80-96); MEAN PLT VOLUME 8.2 fl (7.5-11.1); MONO % 12.6 % (3.8-10.2); PLATELET COUNT 355 10^3/uL (134-434); RBC 2.81 M/mm3 (3.60-5.2)
[2021-04-01 10:36] LABS: CALCIUM 8.8 mg/dL (8.5-10.1)
[2021-04-01 10:40] LABS: CREATININE 2.9 mg/dL (0.55-1.3)
[2021-04-01 10:50] LABS: BLOOD UREA NITROGEN 52.4 mg/dL (7-18)
[2021-04-01 11:31] LABS: ANISOCYTOSIS 2+; MACROCYTOSIS 2+; PLATELET ESTIMATE NORMAL
[2021-04-02] MEDS: TIGECYCLINE 50 MG in DEXTROSE 5%-WATER - 100 ML IVPB SCH ×2 (00:24→12:10)
[2021-04-02] MEDS: VANCOMYCIN 250 MG/5 ML ORAL SOLUTION GT SCH ×3 (05:49→18:29)
[2021-04-02] MEDS: levETIRAcetam 500 MG/5 ML ORAL SOLUTION (UNIT-DOSE CUPS) GT SCH ×2 (05:49→18:29)
[2021-04-02] MEDS: BUDESONIDE 0.5 MG/2 ML INH SUSP VIAL NEB SCH ×2 (07:20→20:19)
[2021-04-02 08:45] LABS: HEMATOCRIT 28.4 % (32.4-45.2); HEMOGLOBIN 9.2 GM/dL (10.7-15.3); MCH 28.8 pg (25.7-33.7); MCHC 32.4 g/dl (32.0-36.0); MEAN CELL VOLUME 88.9 fl (80-96); MEAN PLT VOLUME 8.5 fl (7.5-11.1); PLATELET COUNT 388 10^3/uL (134-434); RBC 3.19 M/mm3 (3.60-5.2); RDW 21.2 % (11.6-15.6); WHITE BLOOD COUNT 14.8 K/mm3 (4.0-10.0)
[2021-04-02 09:15] LABS: ALBUMIN 1.8 g/dl (3.4-5.0)
[2021-04-02 09:19] LABS: CREATININE 3.9 mg/dL (0.55-1.3); PHOSPHOROUS 5.6 mg/dL (2.5-4.9)
[2021-04-02 09:20] LABS: BILIRUBIN,TOTAL 0.3 mg/dL (0.2-1); TOT PROT 6.6 g/dl (6.4-8.2)
[2021-04-02 09:23] LABS: BLOOD UREA NITROGEN 84.3 mg/dL (7-18)
[2021-04-02] MEDS: AMINO ACIDS/PROTEIN HYDROLYS 30 ML LIQUID.PKT PO SCH ×2 (09:45→18:29)
[2021-04-02] MEDS ORDERED: PT OWN MED DRAWER 7, Y5N ONE ×2 (11:32→23:38)
[2021-04-02] MEDS: ASPIRIN 81 MG CHEWABLE TABLETS GT SCH (11:44)
[2021-04-02] MEDS: LACTOBACILLUS ACIDOPHILUS 1 TABLET PO SCH (11:44)
[2021-04-02] MEDS: VITAMIN B COMP W-C 1 EA TABLET (NEPHRO-VITE) PO SCH (11:44)
[2021-04-02] MEDS: ZINC SULFATE 220 MG CAPSULE (FP) GT SCH (11:45)
[2021-04-02] MEDS: APIXABAN 2.5 MG TABLET GT SCH ×2 (11:45→21:13)
[2021-04-02] MEDS: NYSTATIN 100,000 UNIT/GM TOPICAL CREAM 15 GM TUBE TP SCH ×2 (11:45→21:13)
[2021-04-02] MEDS: METOPROLOL TARTRATE 25 MG TABLET (FP) GT SCH ×2 (12:00→21:13)
[2021-04-02] MEDS: MIDODRINE HCL 5 MG TABLET GT SCH ×3 (12:00→18:29)
[2021-04-02] MEDS ORDERED: PNEUMOC 13-VAL CONJ-DIP CRM/PF 0.5 ML DISP.SYRIN IM ONE ×2 (19:37→19:45)
[2021-04-03] MEDS: VANCOMYCIN 250 MG/5 ML ORAL SOLUTION GT SCH ×4 (00:35→17:57)
[2021-04-03] MEDS: TIGECYCLINE 50 MG in DEXTROSE 5%-WATER - 100 ML IVPB SCH ×2 (00:36→13:34)
[2021-04-03] MEDS: levETIRAcetam 500 MG/5 ML ORAL SOLUTION (UNIT-DOSE CUPS) GT SCH ×2 (05:40→17:56)
[2021-04-03] MEDS ORDERED: METOPROLOL TARTRATE 25 MG TABLET (FP) GT SCH (07:45)
[2021-04-03] MEDS: BUDESONIDE 0.5 MG/2 ML INH SUSP VIAL NEB SCH ×2 (07:50→19:56)
[2021-04-03] MEDS: AMINO ACIDS/PROTEIN HYDROLYS 30 ML LIQUID.PKT PO SCH ×2 (09:06→17:56)
[2021-04-03 09:38] LABS: BASO % 0.5 % (0-2.0); EOS % 5.2 % (0-4.5); HEMATOCRIT 26.8 % (32.4-45.2); HEMOGLOBIN 8.6 GM/dL (10.7-15.3); LYMPH % 13.5 % (8-40); MCH 28.9 pg (25.7-33.7); MCHC 32.2 g/dl (32.0-36.0); MEAN CELL VOLUME 89.6 fl (80-96); MEAN PLT VOLUME 8.7 fl (7.5-11.1); MONO % 9.9 % (3.8-10.2); NEUT % 70.9 % (42.8-82.8); PLATELET COUNT 392 10^3/uL (134-434); RBC 2.99 M/mm3 (3.60-5.2); RDW 21.5 % (11.6-15.6)
[2021-04-03] MEDS ORDERED: SODIUM CHLORIDE 250 ML IV PRN (10:00)
[2021-04-03] MEDS ORDERED: EPOETIN ALFA-EPBX 4,000 UNIT/ML VIAL IVPUSH ONE (10:00)
[2021-04-03 10:08] LABS: CALCIUM 8.9 mg/dL (8.5-10.1)
[2021-04-03 10:09] LABS: BLOOD UREA NITROGEN 90.5 mg/dL (7-18)
[2021-04-03 10:12] LABS: CREATININE 4.1 mg/dL (0.55-1.3)
[2021-04-03] MEDS ORDERED: PT OWN MED DRAWER 7, Y5N ONE (10:52)
[2021-04-03] MEDS: MIDODRINE HCL 5 MG TABLET GT SCH ×3 (11:09→17:56)
[2021-04-03] MEDS: VITAMIN B COMP W-C 1 EA TABLET (NEPHRO-VITE) PO SCH (11:09)
[2021-04-03] MEDS: ASPIRIN 81 MG CHEWABLE TABLETS GT SCH (11:09)
[2021-04-03] MEDS: METOPROLOL TARTRATE 25 MG TABLET (FP) GT SCH ×2 (11:10→22:01)
[2021-04-03] MEDS: LACTOBACILLUS ACIDOPHILUS 1 TABLET PO SCH (11:10)
[2021-04-03] MEDS: FAMOTIDINE 40 MG/5 ML ORAL SUSPENSION NR SCH (11:10)
[2021-04-03] MEDS: APIXABAN 2.5 MG TABLET GT SCH ×2 (11:10→22:02)
[2021-04-03] MEDS: ZINC SULFATE 220 MG CAPSULE (FP) GT SCH (11:11)
[2021-04-03] MEDS: NYSTATIN 100,000 UNIT/GM TOPICAL CREAM 15 GM TUBE TP SCH ×2 (11:12→22:02)
[2021-04-04] MEDS ORDERED: PT OWN MED DRAWER 7, Y5N ONE (00:45)
[2021-04-04] MEDS: TIGECYCLINE 50 MG in DEXTROSE 5%-WATER - 100 ML IVPB SCH ×2 (00:49→13:00)
[2021-04-04] MEDS: VANCOMYCIN 250 MG/5 ML ORAL SOLUTION GT SCH ×4 (00:49→17:48)
[2021-04-04] MEDS: levETIRAcetam 500 MG/5 ML ORAL SOLUTION (UNIT-DOSE CUPS) GT SCH ×2 (05:20→17:48)
[2021-04-04] MEDS: BUDESONIDE 0.5 MG/2 ML INH SUSP VIAL NEB SCH ×2 (07:55→20:30)
[2021-04-04 09:09] LABS: HEMATOCRIT 31.3 % (32.4-45.2); HEMOGLOBIN 9.8 GM/dL (10.7-15.3); MCH 28.2 pg (25.7-33.7); MCHC 31.2 g/dl (32.0-36.0); MEAN CELL VOLUME 90.4 fl (80-96); MEAN PLT VOLUME 8.5 fl (7.5-11.1); PLATELET COUNT 395 10^3/uL (134-434); RBC 3.46 M/mm3 (3.60-5.2); RDW 22.6 % (11.6-15.6); WHITE BLOOD COUNT 13.7 K/mm3 (4.0-10.0)
[2021-04-04] MEDS: METOPROLOL TARTRATE 25 MG TABLET (FP) GT SCH ×2 (09:33→21:36)
[2021-04-04] MEDS: ASPIRIN 81 MG CHEWABLE TABLETS GT SCH (09:34)
[2021-04-04] MEDS: MIDODRINE HCL 5 MG TABLET GT SCH ×3 (09:34→17:48)
[2021-04-04] MEDS: AMINO ACIDS/PROTEIN HYDROLYS 30 ML LIQUID.PKT PO SCH ×2 (09:34→17:48)
[2021-04-04] MEDS: ZINC SULFATE 220 MG CAPSULE (FP) GT SCH (09:34)
[2021-04-04] MEDS: NYSTATIN 100,000 UNIT/GM TOPICAL CREAM 15 GM TUBE TP SCH ×2 (09:35→21:36)
[2021-04-04] MEDS: VITAMIN B COMP W-C 1 EA TABLET (NEPHRO-VITE) PO SCH (09:35)
[2021-04-04] MEDS: APIXABAN 2.5 MG TABLET GT SCH ×2 (09:35→21:36)
[2021-04-04] MEDS: LACTOBACILLUS ACIDOPHILUS 1 TABLET PO SCH (09:35)
[2021-04-04 10:25] LABS: CREATININE 3.1 mg/dL (0.55-1.3)
[2021-04-04 10:26] LABS: BLOOD UREA NITROGEN 61.5 mg/dL (7-18)
[2021-04-04] MEDS: ALBUTEROL SO4 2.5/IPRATROPIUM 0.5 INH SOL 3 ML VIAL.NEB. NEB PRN (14:50)
[2021-04-05] MEDS: VANCOMYCIN 250 MG/5 ML ORAL SOLUTION GT SCH ×4 (00:10→17:58)
[2021-04-05] MEDS: levETIRAcetam 500 MG/5 ML ORAL SOLUTION (UNIT-DOSE CUPS) GT SCH ×2 (06:09→17:56)
[2021-04-05] MEDS: BUDESONIDE 0.5 MG/2 ML INH SUSP VIAL NEB SCH ×2 (07:45→19:59)
[2021-04-05] MEDS ORDERED: SODIUM CHLORIDE 250 ML IV PRN (08:28)
[2021-04-05 10:38] LABS: HEMATOCRIT 28.3 % (32.4-45.2); HEMOGLOBIN 8.9 GM/dL (10.7-15.3); MCH 28.4 pg (25.7-33.7); MCHC 31.4 g/dl (32.0-36.0); MEAN CELL VOLUME 90.4 fl (80-96); MEAN PLT VOLUME 8.7 fl (7.5-11.1); PLATELET COUNT 390 10^3/uL (134-434); RBC 3.13 M/mm3 (3.60-5.2); WHITE BLOOD COUNT 12.2 K/mm3 (4.0-10.0)
[2021-04-05 10:52] LABS: CALCIUM 8.6 mg/dL (8.5-10.1)
[2021-04-05 10:56] LABS: CREATININE 4.2 mg/dL (0.55-1.3)
[2021-04-05 10:57] LABS: BLOOD UREA NITROGEN 95.8 mg/dL (7-18)
[2021-04-05] MEDS: METOPROLOL TARTRATE 25 MG TABLET (FP) GT SCH ×3 (13:27→23:33)
[2021-04-05] MEDS ORDERED: PT OWN MED DRAWER 7, Y5N ONE (13:32)
[2021-04-05] MEDS: AMINO ACIDS/PROTEIN HYDROLYS 30 ML LIQUID.PKT PO SCH ×2 (13:35→17:57)
[2021-04-05] MEDS: ASPIRIN 81 MG CHEWABLE TABLETS GT SCH (13:35)
[2021-04-05] MEDS: VITAMIN B COMP W-C 1 EA TABLET (NEPHRO-VITE) PO SCH (13:36)
[2021-04-05] MEDS: LACTOBACILLUS ACIDOPHILUS 1 TABLET PO SCH (13:36)
[2021-04-05] MEDS: MIDODRINE HCL 5 MG TABLET GT SCH ×3 (13:36→17:56)
[2021-04-05] MEDS: ZINC SULFATE 220 MG CAPSULE (FP) GT SCH (13:36)
[2021-04-05] MEDS: NYSTATIN 100,000 UNIT/GM TOPICAL CREAM 15 GM TUBE TP SCH ×2 (13:37→23:33)
[2021-04-05] MEDS: FAMOTIDINE 40 MG/5 ML ORAL SUSPENSION NR SCH (13:37)
[2021-04-05] MEDS: APIXABAN 2.5 MG TABLET GT SCH ×2 (13:41→23:33)
[2021-04-06] MEDS: VANCOMYCIN 250 MG/5 ML ORAL SOLUTION GT SCH ×5 (06:40→23:58)
[2021-04-06] MEDS: levETIRAcetam 500 MG/5 ML ORAL SOLUTION (UNIT-DOSE CUPS) GT SCH ×2 (06:40→17:29)
[2021-04-06] MEDS: BUDESONIDE 0.5 MG/2 ML INH SUSP VIAL NEB SCH ×2 (07:37→20:35)
[2021-04-06 09:07] LABS: HEMATOCRIT 32.6 % (32.4-45.2); HEMOGLOBIN 10.1 GM/dL (10.7-15.3); MCH 28.4 pg (25.7-33.7); MCHC 30.9 g/dl (32.0-36.0); MEAN CELL VOLUME 91.9 fl (80-96); MEAN PLT VOLUME 9.2 fl (7.5-11.1); PLATELET COUNT 395 10^3/uL (134-434); RBC 3.55 M/mm3 (3.60-5.2); RDW 22.1 % (11.6-15.6); WHITE BLOOD COUNT 12.4 K/mm3 (4.0-10.0)
[2021-04-06 09:28] LABS: CREATININE 2.9 mg/dL (0.55-1.3)
[2021-04-06 09:32] LABS: BLOOD UREA NITROGEN 57.8 mg/dL (7-18)
[2021-04-06] MEDS: MIDODRINE HCL 5 MG TABLET GT SCH ×3 (09:46→17:29)
[2021-04-06] MEDS: LACTOBACILLUS ACIDOPHILUS 1 TABLET PO SCH (09:46)
[2021-04-06] MEDS: APIXABAN 2.5 MG TABLET GT SCH ×2 (09:46→22:29)
[2021-04-06] MEDS: METOPROLOL TARTRATE 25 MG TABLET (FP) GT SCH ×2 (09:46→22:29)
[2021-04-06] MEDS: ZINC SULFATE 220 MG CAPSULE (FP) GT SCH (09:47)
[2021-04-06] MEDS: ASPIRIN 81 MG CHEWABLE TABLETS GT SCH (09:47)
[2021-04-06] MEDS: AMINO ACIDS/PROTEIN HYDROLYS 30 ML LIQUID.PKT PO SCH ×2 (09:47→17:28)
[2021-04-06] MEDS: VITAMIN B COMP W-C 1 EA TABLET (NEPHRO-VITE) PO SCH (09:47)
[2021-04-06] MEDS: NYSTATIN 100,000 UNIT/GM TOPICAL CREAM 15 GM TUBE TP SCH ×2 (09:47→22:29)
[2021-04-07] MEDS: VANCOMYCIN 250 MG/5 ML ORAL SOLUTION GT SCH ×4 (05:55→23:54)
[2021-04-07] MEDS: levETIRAcetam 500 MG/5 ML ORAL SOLUTION (UNIT-DOSE CUPS) GT SCH ×2 (05:55→19:00)
[2021-04-07] MEDS: BUDESONIDE 0.5 MG/2 ML INH SUSP VIAL NEB SCH ×2 (07:20→20:05)
[2021-04-07] MEDS: MIDODRINE HCL 5 MG TABLET GT SCH ×4 (08:22→19:13)
[2021-04-07] MEDS ORDERED: SODIUM CHLORIDE 250 ML IV PRN (08:42)
[2021-04-07] MEDS ORDERED: EPOETIN ALFA-EPBX 4,000 UNIT/ML VIAL IVPUSH ONE (09:00)
[2021-04-07 09:30] LABS: HEMATOCRIT 28.4 % (32.4-45.2); HEMOGLOBIN 8.9 GM/dL (10.7-15.3); MCH 28.7 pg (25.7-33.7); MCHC 31.3 g/dl (32.0-36.0); MEAN CELL VOLUME 91.5 fl (80-96); PLATELET COUNT 392 10^3/uL (134-434); RDW 21.7 % (11.6-15.6); WHITE BLOOD COUNT 12.7 K/mm3 (4.0-10.0)
[2021-04-07 09:52] LABS: BLOOD UREA NITROGEN 78.2 mg/dL (7-18)
[2021-04-07 09:55] LABS: CREATININE 3.6 mg/dL (0.55-1.3)
[2021-04-07] MEDS ORDERED: PT OWN MED DRAWER 7, Y5N ONE (11:47)
[2021-04-07] MEDS: FAMOTIDINE 40 MG/5 ML ORAL SUSPENSION NR SCH (12:01)
[2021-04-07] MEDS: AMINO ACIDS/PROTEIN HYDROLYS 30 ML LIQUID.PKT PO SCH ×2 (12:01→19:00)
[2021-04-07] MEDS: VITAMIN B COMP W-C 1 EA TABLET (NEPHRO-VITE) PO SCH (12:02)
[2021-04-07] MEDS: APIXABAN 2.5 MG TABLET GT SCH ×2 (12:02→21:47)
[2021-04-07] MEDS: LACTOBACILLUS ACIDOPHILUS 1 TABLET PO SCH (12:03)
[2021-04-07] MEDS: NYSTATIN 100,000 UNIT/GM TOPICAL CREAM 15 GM TUBE TP SCH ×2 (12:03→21:47)
[2021-04-07] MEDS: ZINC SULFATE 220 MG CAPSULE (FP) GT SCH (12:03)
[2021-04-07] MEDS: ASPIRIN 81 MG CHEWABLE TABLETS GT SCH (12:03)
[2021-04-07] MEDS: METOPROLOL TARTRATE 25 MG TABLET (FP) GT SCH ×2 (14:46→21:47)
[2021-04-08] MEDS: levETIRAcetam 500 MG/5 ML ORAL SOLUTION (UNIT-DOSE CUPS) GT SCH (05:45)
[2021-04-08] MEDS: VANCOMYCIN 250 MG/5 ML ORAL SOLUTION GT SCH ×2 (05:45→15:27)
[2021-04-08] MEDS: BUDESONIDE 0.5 MG/2 ML INH SUSP VIAL NEB SCH (07:30)
[2021-04-08 09:33] LABS: HEMATOCRIT 30.3 % (32.4-45.2); HEMOGLOBIN 9.4 GM/dL (10.7-15.3); MCH 28.3 pg (25.7-33.7); MCHC 31.1 g/dl (32.0-36.0); MEAN CELL VOLUME 91.3 fl (80-96); MEAN PLT VOLUME 9.4 fl (7.5-11.1); PLATELET COUNT 379 10^3/uL (134-434); RBC 3.31 M/mm3 (3.60-5.2); RDW 21.3 % (11.6-15.6); WHITE BLOOD COUNT 13.3 K/mm3 (4.0-10.0)
[2021-04-08 10:00] LABS: CALCIUM 9.3 mg/dL (8.5-10.1)
[2021-04-08 10:04] LABS: BLOOD UREA NITROGEN 46.3 mg/dL (7-18); CREATININE 2.7 mg/dL (0.55-1.3)
[2021-04-08] MEDS: AMINO ACIDS/PROTEIN HYDROLYS 30 ML LIQUID.PKT PO SCH ×2 (10:45→18:48)
[2021-04-08] MEDS: ASPIRIN 81 MG CHEWABLE TABLETS GT SCH (10:46)
[2021-04-08] MEDS: VITAMIN B COMP W-C 1 EA TABLET (NEPHRO-VITE) PO SCH (10:46)
[2021-04-08] MEDS: ZINC SULFATE 220 MG CAPSULE (FP) GT SCH (10:46)
[2021-04-08] MEDS: LACTOBACILLUS ACIDOPHILUS 1 TABLET PO SCH (10:46)
[2021-04-08] MEDS: METOPROLOL TARTRATE 25 MG TABLET (FP) GT SCH (10:46)
[2021-04-08] MEDS: NYSTATIN 100,000 UNIT/GM TOPICAL CREAM 15 GM TUBE TP SCH (10:47)
[2021-04-08] MEDS: APIXABAN 2.5 MG TABLET GT SCH (10:47)
[2021-04-08] MEDS: MIDODRINE HCL 5 MG TABLET GT SCH ×2 (10:47→15:58)
[2021-04-08 18:50] VITALS: BP 142/44; PULSE 57; TEMP 98.4
== END 2021-04-08 17:58 | DRG 870 ==
LOC: JER 17:31 → JERBED 19:59 → J2W 03-14 21:08 → J5S 03-23 18:11
PROVIDERS: ADMIT Internal Medicine; ATTEND Internal Medicine
PROC: 5A1955Z Respiratory Ventilation, Greater than 96 Consecutive Hours (ICD-10-PCS; principal; 2021-03-13)
PROC: 0B21XFZ Change Tracheostomy Device in Trachea, External Approach (ICD-10-PCS; 2021-03-15)
PROC: 5A1D70Z Performance of Urinary Filtration, Intermittent, Less than 6 Hours Per Day (ICD-10-PCS; 2021-03-15)
PROC: 5A1D70Z Performance of Urinary Filtration, Intermittent, Less than 6 Hours Per Day (ICD-10-PCS; 2021-03-20)
PROC: 5A1D70Z Performance of Urinary Filtration, Intermittent, Less than 6 Hours Per Day (ICD-10-PCS; 2021-03-24)
PROC: 5A1D70Z Performance of Urinary Filtration, Intermittent, Less than 6 Hours Per Day (ICD-10-PCS; 2021-03-29)
PROC: 5A1D70Z Performance of Urinary Filtration, Intermittent, Less than 6 Hours Per Day (ICD-10-PCS; 2021-04-03)
PROC: 5A1D70Z Performance of Urinary Filtration, Intermittent, Less than 6 Hours Per Day (ICD-10-PCS; 2021-04-05)
PROC: 5A1D70Z Performance of Urinary Filtration, Intermittent, Less than 6 Hours Per Day (ICD-10-PCS; 2021-04-07)
DX: A41.81 Sepsis due to Enterococcus (principal); L89.154 Pressure ulcer of sacral region, stage 4; N18.6 End stage renal disease; J96.20 Acute and chronic respiratory failure, unspecified whether with hypoxia or hypercapnia; N39.0 Urinary tract infection, site not specified; I24.8 Other forms of acute ischemic heart disease; A04.72 Enterocolitis due to Clostridium difficile, not specified as recurrent; J95.851 Ventilator associated pneumonia; R65.20 Severe sepsis without septic shock; E11.22 Type 2 diabetes mellitus with diabetic chronic kidney disease; J44.9 Chronic obstructive pulmonary disease, unspecified; F03.90 Unspecified dementia, unspecified severity, without behavioral disturbance, psychotic disturbance, mood disturbance, and anxiety; D64.9 Anemia, unspecified; I48.0 Paroxysmal atrial fibrillation; G40.909 Epilepsy, unspecified, not intractable, without status epilepticus; D72.829 Elevated white blood cell count, unspecified; I95.9 Hypotension, unspecified; E87.70 Fluid overload, unspecified; I35.0 Nonrheumatic aortic (valve) stenosis; Z85.3 Personal history of malignant neoplasm of breast; Z93.0 Tracheostomy status; Z93.1 Gastrostomy status; Z86.73 Personal history of transient ischemic attack (TIA), and cerebral infarction without residual deficits; Z99.2 Dependence on renal dialysis
CPT/HCPCS: 36415; 70450-TC; 71045-TC-FY; 80048; 80053; 80061; 80150; 80177; 81003; 83036; 83605; 83735; 83880; 84100; 84443; 84484; 85025; 85027; 85610; 85730; 86140; 86803; 86850; 86900; 86901; 87040; 87070; 87086; 87184; 87186; 87205; 87324; 87340; 87449; 87493; 93005; 93010; 93306-TC; 94002; 94640; 99285-25; C9803; G0480; J3243; Q5106; U0003; U0005

== ENCOUNTER 2021-04-11 13:50 | Inpatient (IN) | payer OTHER ==
[2021-04-11] MEDS ORDERED: SODIUM CHLORIDE 0.9% 500 ML INFUS.BAG IV ONE (15:15)
[2021-04-11 15:28] LABS: HEMATOCRIT 30.4 % (32.4-45.2); HEMOGLOBIN 9.5 GM/dL (10.7-15.3); MCHC 31.4 g/dl (32.0-36.0); MEAN CELL VOLUME 89.4 fl (80-96); MEAN PLT VOLUME 8.7 fl (7.5-11.1); PLATELET COUNT 474 10^3/uL (134-434); RDW 19.9 % (11.6-15.6)
[2021-04-11 15:35] LABS: INR 1.21 (0.83-1.09); PROTHROMBIN TIME (PATIENT) 13.6 SEC (9.7-13.0)
[2021-04-11 15:38] LABS: ACTIVATED PTT 30.9 SECONDS (25.2-36.5)
[2021-04-11] MEDS ORDERED: PANTOPRAZOLE SODIUM 40 MG VIAL IVPUSH ONE (15:40)
[2021-04-11 15:46] LABS: CHLORIDE 98 mmol/L (98-107); SODIUM 125 mmol/L (136-145)
[2021-04-11 15:49] LABS: CALCIUM 9.1 mg/dL (8.5-10.1)
[2021-04-11] MEDS ORDERED: PANTOPRAZOLE SODIUM 40 MG VIAL ONE (15:49)
[2021-04-11 15:50] LABS: BLOOD UREA NITROGEN 45.9 mg/dL (7-18); CO2 21 mmol/L (21-32); GLUCOSE,RANDOM 87 mg/dL (74-106)
[2021-04-11 15:53] LABS: CREATININE 3.3 mg/dL (0.55-1.3); PHOSPHOROUS 4.6 mg/dL (2.5-4.9); SGOT/AST 168 U/L (15-37)
[2021-04-11 15:54] LABS: BILIRUBIN,TOTAL 0.4 mg/dL (0.2-1); TOT PROT 8.4 g/dl (6.4-8.2)
[2021-04-11 16:00] LABS: ALBUMIN 2.3 g/dl (3.4-5.0); ALK PHOS 159 U/L (45-117); ANION GAP 6 MMOL/L (8-16); SGPT/ALT 45 U/L (13-61)
[2021-04-11 16:08] LABS: ANISOCYTOSIS 1+; MACROCYTOSIS 1+; OVALOCYTE 1+; PLATELET ESTIMATE INCREASED; TARGET CELLS 1+
[2021-04-11 17:09] LABS: VENOUS BASE EXCESS -8.6 mmol/L (-2-2); VENOUS O2 SATURATION 59.9 % (70-80); VENOUS PCO2 47.3 mmHg (38-52); VENOUS PH 7.219 (7.310-7.410)
[2021-04-11 17:28] LABS: ALBUMIN 2.4 g/dl (3.4-5.0); BLOOD UREA NITROGEN 45.1 mg/dL (7-18)
[2021-04-11 17:31] LABS: CREATININE 3.2 mg/dL (0.55-1.3)
[2021-04-11 17:32] LABS: BILIRUBIN,TOTAL 0.3 mg/dL (0.2-1)
[2021-04-11 17:33] LABS: TOT PROT 7.5 g/dl (6.4-8.2)
[2021-04-11] MEDS ORDERED: SODIUM CHLORIDE FOR INHALATION 3 ML VIAL.NEB IH ONE (18:41)
[2021-04-11] MEDS ORDERED: CEFEPIME HCL/D5W 2 GM/50 ML BAG IVPB ONE (18:49)
[2021-04-11] MEDS ORDERED: VANCOMYCIN 1 GM in D5W (PRE-DOCKED) 1,000 MG/250 ML IVPB ONE (18:49)
[2021-04-11] MEDS ORDERED: VANCOMYCIN 1 GRAM (PRE-DOCKED) 1,000 MG/250 ML BAG IVPB ONE (18:55)
[2021-04-11] MEDS ORDERED: CEFEPIME 2 GM/100 ML BAG IVPB ONE (19:53)
[2021-04-11] MEDS ORDERED: TIGECYCLINE 100 MG in DEXTROSE 5%-WATER - 100 ML IVPB ONE (20:51)
[2021-04-11] MEDS ORDERED: VANCOMYCIN 500 MG in DEXTROSE 5%-WATER 100 ML IVPB ONE (21:15)
[2021-04-11] MEDS ORDERED: PATIENT'S OWN MEDICATION (NON-FORMULARY) (Ipratropium/Albuterol Sulfate 1 PUFF Inhaler) IH PRN (21:42)
[2021-04-11] MEDS ORDERED: ACETAMINOPHEN 1000 MG/100 ML VIAL IVPB PRN (21:46)
[2021-04-11] MEDS ORDERED: levETIRAcetam 500 MG/5 ML INJECTION VIAL IVPB ONE ×2 (21:47→22:34)
[2021-04-11] MEDS ORDERED: levETIRAcetam 500 MG/5 ML ORAL SOLUTION (UNIT-DOSE CUPS) GT SCH (22:00)
[2021-04-11 22:34] LABS: IRON SERUM 25 ug/dL (50-175); TOTAL IRON BINDING CAPACITY 187 ug/dL (250-450)
[2021-04-11] MEDS: BUDESONIDE 0.5 MG/2 ML INH SUSP VIAL NEB SCH (23:02)
[2021-04-12 05:50] LABS: BASO % 0.7 % (0-2.0); EOS % 3.3 % (0-4.5); HEMOGLOBIN 9.5 GM/dL (10.7-15.3); LYMPH % 4.2 % (8-40); MCH 28.5 pg (25.7-33.7); MCHC 31.6 g/dl (32.0-36.0); MEAN PLT VOLUME 8.7 fl (7.5-11.1); MONO % 6.5 % (3.8-10.2); NEUT % 85.3 % (42.8-82.8); PLATELET COUNT 453 10^3/uL (134-434); RBC 3.33 M/mm3 (3.60-5.2); RDW 20.5 % (11.6-15.6); WHITE BLOOD COUNT 14.2 K/mm3 (4.0-10.0)
[2021-04-12 06:04] LABS: ALBUMIN 2.6 g/dl (3.4-5.0); CALCIUM 9.5 mg/dL (8.5-10.1)
[2021-04-12 06:05] LABS: MAGNESIUM 2.8 mg/dL (1.8-2.4)
[2021-04-12 06:08] LABS: CREATININE 3.9 mg/dL (0.55-1.3); PHOSPHOROUS 4.6 mg/dL (2.5-4.9)
[2021-04-12 06:09] LABS: BILIRUBIN,TOTAL 0.4 mg/dL (0.2-1)
[2021-04-12] MEDS ORDERED: VANCOMYCIN PREMIX 1.5 GM 1,500 MG/300 ML BAG IVPB ONE (07:00)
[2021-04-12 07:36] LABS: ANISOCYTOSIS 2+; MACROCYTOSIS 0; OVALOCYTE 1+; PLATELET ESTIMATE NORMAL
[2021-04-12] MEDS ORDERED: SODIUM CHLORIDE 250 ML IV PRN (09:42)
[2021-04-12] MEDS ORDERED: PANTOPRAZOLE SODIUM 40 MG VIAL IVPUSH SCH (10:00)
[2021-04-12] MEDS ORDERED: DOCUSATE SODIUM 100 MG CAPSULE (FP) PO SCH (10:00)
[2021-04-12] MEDS ORDERED: EPOETIN ALFA-EPBX 4,000 UNIT/ML VIAL SQ ONE (11:00)
[2021-04-12] MEDS: BUDESONIDE 0.5 MG/2 ML INH SUSP VIAL NEB SCH ×2 (11:10→21:45)
[2021-04-12] MEDS: VANCOMYCIN 1 GM in D5W (PRE-DOCKED) 1,000 MG/250 ML IVPB SCH (11:29)
[2021-04-12 11:40] LABS: BASO % 0.6 % (0-2.0); HEMATOCRIT 26.5 % (32.4-45.2); HEMOGLOBIN 8.4 GM/dL (10.7-15.3); LYMPH % 3.9 % (8-40); MCH 28.7 pg (25.7-33.7); MCHC 31.8 g/dl (32.0-36.0); MEAN CELL VOLUME 90.3 fl (80-96); MEAN PLT VOLUME 8.9 fl (7.5-11.1); MONO % 7.8 % (3.8-10.2); NEUT % 83.7 % (42.8-82.8); PLATELET COUNT 415 10^3/uL (134-434); RBC 2.94 M/mm3 (3.60-5.2); RDW 19.8 % (11.6-15.6); WHITE BLOOD COUNT 14.9 K/mm3 (4.0-10.0)
[2021-04-12] MEDS: MIDODRINE HCL 2.5 MG TABLET GT SCH ×3 (12:26→18:38)
[2021-04-12] MEDS ORDERED: IRON SUCROSE INJECTION 200 MG in SODIUM CHLORIDE 90 ML IVPB ONE (13:06)
[2021-04-12 14:40] LABS: EPI CELLS 42.9 /uL (0-25.1); HYALINE CASTS 1.39 /uL (0-3.1); URINE APPEARANCE TURBID; URINE BACTERIA 222.6 /uL (0-1359); URINE RBC 47.7 /uL (0-23.9); URINE WBC 3.3 /uL (0-25.8)
[2021-04-12 14:42] LABS: URINE COLOR BROWN
[2021-04-12] MEDS ORDERED: ALBUTEROL SO4 2.5/IPRATROPIUM 0.5 INH SOL 3 ML VIAL.NEB. NEB PRN (15:50)
[2021-04-12] MEDS: PANTOPRAZOLE SODIUM 80 MG in SODIUM CHLORIDE 100 ML IVPB SCH (16:05)
[2021-04-12] MEDS: METOPROLOL TARTRATE 25 MG TABLET (FP) GT SCH ×2 (16:28→21:54)
[2021-04-12 17:07] LABS: BASO % 0.5 % (0-2.0); EOS % 2.4 % (0-4.5); HEMATOCRIT 28.3 % (32.4-45.2); LYMPH % 3.7 % (8-40); MCH 28.2 pg (25.7-33.7); MCHC 31.9 g/dl (32.0-36.0); MEAN CELL VOLUME 88.6 fl (80-96); MEAN PLT VOLUME 8.7 fl (7.5-11.1); MONO % 10.8 % (3.8-10.2); NEUT % 82.6 % (42.8-82.8); PLATELET COUNT 415 10^3/uL (134-434); WHITE BLOOD COUNT 16.3 K/mm3 (4.0-10.0)
[2021-04-12 21:40] LABS: BASO % 0.9 % (0-2.0); EOS % 3.3 % (0-4.5); HEMOGLOBIN 8.6 GM/dL (10.7-15.3); LYMPH % 4.7 % (8-40); MCH 27.9 pg (25.7-33.7); MCHC 31.9 g/dl (32.0-36.0); MEAN CELL VOLUME 87.3 fl (80-96); MEAN PLT VOLUME 8.1 fl (7.5-11.1); MONO % 10.9 % (3.8-10.2); NEUT % 80.2 % (42.8-82.8); PLATELET COUNT 406 10^3/uL (134-434); RBC 3.09 M/mm3 (3.60-5.2); RDW 20.1 % (11.6-15.6); WHITE BLOOD COUNT 15.6 K/mm3 (4.0-10.0)
[2021-04-12] MEDS: levETIRAcetam 500 MG/5 ML INJECTION VIAL IVPB SCH (21:58)
[2021-04-13] MEDS ORDERED: PT OWN MED DRAWER 7, Y5N ONE ×2 (04:28→10:09)
[2021-04-13] MEDS: PANTOPRAZOLE SODIUM 80 MG in SODIUM CHLORIDE 100 ML IVPB SCH ×3 (04:28→21:16)
[2021-04-13] MEDS: BUDESONIDE 0.5 MG/2 ML INH SUSP VIAL NEB SCH ×2 (08:25→21:30)
[2021-04-13 09:57] LABS: BASO % 0.9 % (0-2.0); HEMATOCRIT 25.6 % (32.4-45.2); HEMOGLOBIN 8.4 GM/dL (10.7-15.3); LYMPH % 7.5 % (8-40); MCHC 32.6 g/dl (32.0-36.0); MEAN CELL VOLUME 88.8 fl (80-96); MEAN PLT VOLUME 8.7 fl (7.5-11.1); MONO % 9.5 % (3.8-10.2); NEUT % 79.1 % (42.8-82.8); PLATELET COUNT 424 10^3/uL (134-434); RBC 2.88 M/mm3 (3.60-5.2); RDW 20.4 % (11.6-15.6); WHITE BLOOD COUNT 16.3 K/mm3 (4.0-10.0)
[2021-04-13] MEDS: levETIRAcetam 500 MG/5 ML INJECTION VIAL IVPB SCH ×2 (10:14→21:37)
[2021-04-13] MEDS: METOPROLOL TARTRATE 25 MG TABLET (FP) GT SCH ×2 (10:14→22:14)
[2021-04-13] MEDS: MIDODRINE HCL 2.5 MG TABLET GT SCH ×3 (10:14→17:17)
[2021-04-13] MEDS: VANCOMYCIN 1 GM in D5W (PRE-DOCKED) 1,000 MG/250 ML IVPB SCH (10:15)
[2021-04-13 10:28] LABS: CALCIUM 9.1 mg/dL (8.5-10.1)
[2021-04-13 10:29] LABS: ALBUMIN 2.3 g/dl (3.4-5.0); MAGNESIUM 2.4 mg/dL (1.8-2.4)
[2021-04-13 10:31] LABS: PHOSPHOROUS 3.4 mg/dL (2.5-4.9)
[2021-04-13 10:33] LABS: BILIRUBIN,TOTAL 0.4 mg/dL (0.2-1); TOT PROT 7.3 g/dl (6.4-8.2)
[2021-04-13 10:42] LABS: BLOOD UREA NITROGEN 19.6 mg/dL (7-18)
[2021-04-13 12:01] VITALS: BMI 28.0
[2021-04-13] MEDS: SCOPOLAMINE HYDROBROMIDE 1 PATCH PATCH.TD72 TD SCH (12:26)
[2021-04-13] MEDS: KCL 10 MEQ IVPB 10 MEQ/100 ML INFUS.BAG IVPB SCH ×4 (12:58→17:05)
[2021-04-13 16:39] LABS: BASO % 0.9 % (0-2.0); EOS % 5.8 % (0-4.5); HEMATOCRIT 26.1 % (32.4-45.2); HEMOGLOBIN 8.2 GM/dL (10.7-15.3); LYMPH % 8.1 % (8-40); MCH 28.4 pg (25.7-33.7); MCHC 31.5 g/dl (32.0-36.0); MEAN CELL VOLUME 90.4 fl (80-96); MEAN PLT VOLUME 9.2 fl (7.5-11.1); MONO % 10.8 % (3.8-10.2); NEUT % 74.4 % (42.8-82.8); PLATELET COUNT 381 10^3/uL (134-434); RBC 2.89 M/mm3 (3.60-5.2); WHITE BLOOD COUNT 19.1 K/mm3 (4.0-10.0)
[2021-04-13] MEDS: POLYETHYLENE GLYCOL (HEALTHYLAX) 3350 17 GM PACKET GT SCH ×2 (22:15→22:33)
[2021-04-14] MEDS: PANTOPRAZOLE SODIUM 80 MG in SODIUM CHLORIDE 100 ML IVPB SCH ×4 (06:03→23:01)
[2021-04-14] MEDS ORDERED: SODIUM CHLORIDE 250 ML IV PRN (07:00)
[2021-04-14] MEDS ORDERED: EPOETIN ALFA-EPBX 4,000 UNIT/ML VIAL SQ ONE (07:00)
[2021-04-14] MEDS ORDERED: PT OWN MED DRAWER 7, Y5N ONE ×2 (07:24→11:55)
[2021-04-14] MEDS: MIDODRINE HCL 2.5 MG TABLET GT SCH ×4 (07:27→17:04)
[2021-04-14 08:24] LABS: BASO % 0.9 % (0-2.0); EOS % 6.3 % (0-4.5); HEMATOCRIT 25.4 % (32.4-45.2); LYMPH % 5.7 % (8-40); MCH 28.3 pg (25.7-33.7); MCHC 31.6 g/dl (32.0-36.0); MEAN CELL VOLUME 89.7 fl (80-96); MEAN PLT VOLUME 8.7 fl (7.5-11.1); MONO % 10.4 % (3.8-10.2); NEUT % 76.7 % (42.8-82.8); PLATELET COUNT 413 10^3/uL (134-434); RBC 2.83 M/mm3 (3.60-5.2); WHITE BLOOD COUNT 17.3 K/mm3 (4.0-10.0)
[2021-04-14 08:47] LABS: ALBUMIN 2.2 g/dl (3.4-5.0); BLOOD UREA NITROGEN 25.6 mg/dL (7-18); CALCIUM 9.1 mg/dL (8.5-10.1); MAGNESIUM 2.3 mg/dL (1.8-2.4)
[2021-04-14 08:50] LABS: CREATININE 4.3 mg/dL (0.55-1.3)
[2021-04-14 08:51] LABS: PHOSPHOROUS 3.9 mg/dL (2.5-4.9)
[2021-04-14 08:52] LABS: BILIRUBIN,TOTAL 0.4 mg/dL (0.2-1)
[2021-04-14] MEDS: BUDESONIDE 0.5 MG/2 ML INH SUSP VIAL NEB SCH ×2 (09:17→22:05)
[2021-04-14] MEDS: POLYETHYLENE GLYCOL (HEALTHYLAX) 3350 17 GM PACKET GT SCH ×2 (09:47→21:36)
[2021-04-14] MEDS: levETIRAcetam 500 MG/5 ML INJECTION VIAL IVPB SCH ×2 (10:05→21:35)
[2021-04-14] MEDS: METOPROLOL TARTRATE 25 MG TABLET (FP) GT SCH ×2 (10:05→21:36)
[2021-04-14] MEDS ORDERED: VANCOMYCIN 1 GRAM (PRE-DOCKED) 1,000 MG/250 ML BAG IVPB ONE (16:40)
[2021-04-15] MEDS: PANTOPRAZOLE SODIUM 80 MG in SODIUM CHLORIDE 100 ML IVPB SCH ×2 (02:21→12:02)
[2021-04-15] MEDS: BUDESONIDE 0.5 MG/2 ML INH SUSP VIAL NEB SCH ×2 (09:00→20:05)
[2021-04-15] MEDS: MIDODRINE HCL 2.5 MG TABLET GT SCH ×3 (09:13→18:05)
[2021-04-15] MEDS: POLYETHYLENE GLYCOL (HEALTHYLAX) 3350 17 GM PACKET GT SCH ×2 (09:13→22:54)
[2021-04-15] MEDS: levETIRAcetam 500 MG/5 ML INJECTION VIAL IVPB SCH ×2 (09:13→22:28)
[2021-04-15] MEDS: METOPROLOL TARTRATE 25 MG TABLET (FP) GT SCH ×2 (09:14→22:28)
[2021-04-15 09:41] LABS: BASO % 0.5 % (0-2.0); EOS % 5.7 % (0-4.5); HEMATOCRIT 26.6 % (32.4-45.2); HEMOGLOBIN 8.3 GM/dL (10.7-15.3); LYMPH % 7.6 % (8-40); MCH 28.4 pg (25.7-33.7); MCHC 31.3 g/dl (32.0-36.0); MEAN CELL VOLUME 90.6 fl (80-96); MEAN PLT VOLUME 8.5 fl (7.5-11.1); MONO % 9.8 % (3.8-10.2); NEUT % 76.4 % (42.8-82.8); PLATELET COUNT 405 10^3/uL (134-434); RBC 2.94 M/mm3 (3.60-5.2); RDW 20.4 % (11.6-15.6); WHITE BLOOD COUNT 18.2 K/mm3 (4.0-10.0)
[2021-04-15 10:12] LABS: BLOOD UREA NITROGEN 21.2 mg/dL (7-18); CALCIUM 9.4 mg/dL (8.5-10.1)
[2021-04-15 10:13] LABS: ALBUMIN 2.2 g/dl (3.4-5.0); MAGNESIUM 2.2 mg/dL (1.8-2.4)
[2021-04-15 10:15] LABS: PHOSPHOROUS 1.9 mg/dL (2.5-4.9)
[2021-04-15 10:17] LABS: CREATININE 3.1 mg/dL (0.55-1.3)
[2021-04-15 10:21] LABS: BILIRUBIN,TOTAL 0.3 mg/dL (0.2-1); TOT PROT 7.2 g/dl (6.4-8.2)
[2021-04-15] MEDS ORDERED: DEXTROSE 5%-WATER 100 ML IVPB ONE (15:25)
[2021-04-15] MEDS ORDERED: MEROPENEM 500 MG VIAL (RESTRICTED TO ID) IVPB ONE (15:25)
[2021-04-15] MEDS: MEROPENEM 500 MG in DEXTROSE 5%-WATER 100 ML IVPB SCH ×2 (15:34→17:06)
[2021-04-15] MEDS ORDERED: SODIUM CHLORIDE IVPB ONE (16:00)
[2021-04-15] MEDS ORDERED: AMIKACIN SO4 IVPB ONE (16:00)
[2021-04-15 19:24] LABS: EPI CELLS 23 /uL (0-25.1); HYALINE CASTS 13 /uL (0-3.1); URINE APPEARANCE TURBID; URINE BILIRUBIN 1+ (NEGATIVE); URINE COLOR RED; URINE GLUCOSE (UA) NEGATIVE (NEGATIVE); URINE KETONE NEGATIVE (NEGATIVE); URINE LEUK ESTERASE 3+ (NEGATIVE); URINE NITRITE POSITIVE (NEGATIVE); URINE PROTEIN 3+ (NEGATIVE); URINE UROBILINOGEN 0.2 mg/dL (0.2-1.0); URINE WBC 2930 /uL (0-25.8)
[2021-04-15 22:17] LABS: URINE BACTERIA 15.2 /uL (0-1359); URINE RBC 2386.8 /uL (0-23.9)
[2021-04-15 23:55] LABS: YEAST FEW (NEGATIVE)
[2021-04-16] MEDS ORDERED: MEROPENEM 500 MG VIAL (RESTRICTED TO ID) IVPB ONE ×3 (02:20→17:16)
[2021-04-16] MEDS ORDERED: DEXTROSE 5%-WATER 100 ML IVPB ONE ×3 (02:20→17:16)
[2021-04-16] MEDS: MEROPENEM 500 MG in DEXTROSE 5%-WATER 100 ML IVPB SCH ×3 (02:34→17:24)
[2021-04-16] MEDS ORDERED: SODIUM CHLORIDE 250 ML IV PRN (08:35)
[2021-04-16 08:49] LABS: BASO % 0.4 % (0-2.0); EOS % 7.4 % (0-4.5); HEMATOCRIT 24.7 % (32.4-45.2); HEMOGLOBIN 7.7 GM/dL (10.7-15.3); MCH 28.1 pg (25.7-33.7); MCHC 31.1 g/dl (32.0-36.0); MEAN CELL VOLUME 90.3 fl (80-96); MEAN PLT VOLUME 8.5 fl (7.5-11.1); MONO % 9.8 % (3.8-10.2); NEUT % 73.4 % (42.8-82.8); PLATELET COUNT 366 10^3/uL (134-434); RBC 2.74 M/mm3 (3.60-5.2); RDW 20.5 % (11.6-15.6); WHITE BLOOD COUNT 15.3 K/mm3 (4.0-10.0)
[2021-04-16] MEDS: BUDESONIDE 0.5 MG/2 ML INH SUSP VIAL NEB SCH ×2 (09:10→21:28)
[2021-04-16 09:12] LABS: CALCIUM 9.3 mg/dL (8.5-10.1)
[2021-04-16 09:14] LABS: BLOOD UREA NITROGEN 34.7 mg/dL (7-18); MAGNESIUM 2.2 mg/dL (1.8-2.4)
[2021-04-16 09:17] LABS: CREATININE 4.1 mg/dL (0.55-1.3); PHOSPHOROUS 1.9 mg/dL (2.5-4.9)
[2021-04-16 09:18] LABS: BILIRUBIN,TOTAL 0.8 mg/dL (0.2-1); TOT PROT 6.6 g/dl (6.4-8.2)
[2021-04-16] MEDS: SCOPOLAMINE HYDROBROMIDE 1 PATCH PATCH.TD72 TD SCH (09:53)
[2021-04-16] MEDS: MIDODRINE HCL 2.5 MG TABLET GT SCH ×3 (09:59→17:24)
[2021-04-16] MEDS: levETIRAcetam 500 MG/5 ML INJECTION VIAL IVPB SCH ×2 (09:59→22:42)
[2021-04-16] MEDS: POLYETHYLENE GLYCOL (HEALTHYLAX) 3350 17 GM PACKET GT SCH ×2 (09:59→22:29)
[2021-04-16] MEDS: METOPROLOL TARTRATE 25 MG TABLET (FP) GT SCH ×2 (09:59→22:41)
[2021-04-16 10:36] LABS: ANISOCYTOSIS 2+; MACROCYTOSIS 2+; OVALOCYTE 2+; PLATELET ESTIMATE NORMAL; TARGET CELLS 2+; TEAR DROP CELLS 1+
[2021-04-17] MEDS ORDERED: DEXTROSE 5%-WATER 100 ML IVPB ONE ×3 (02:14→18:00)
[2021-04-17] MEDS ORDERED: MEROPENEM 500 MG VIAL (RESTRICTED TO ID) IVPB ONE ×3 (02:14→18:00)
[2021-04-17] MEDS: MEROPENEM 500 MG in DEXTROSE 5%-WATER 100 ML IVPB SCH ×3 (02:16→18:08)
[2021-04-17 08:51] LABS: BASO % 0.6 % (0-2.0); EOS % 9.6 % (0-4.5); HEMATOCRIT 24.1 % (32.4-45.2); HEMOGLOBIN 7.6 GM/dL (10.7-15.3); LYMPH % 9.8 % (8-40); MCH 28.3 pg (25.7-33.7); MCHC 31.7 g/dl (32.0-36.0); MEAN CELL VOLUME 89.5 fl (80-96); MEAN PLT VOLUME 8.4 fl (7.5-11.1); MONO % 9.5 % (3.8-10.2); NEUT % 70.5 % (42.8-82.8); PLATELET COUNT 386 10^3/uL (134-434); RDW 19.9 % (11.6-15.6); WHITE BLOOD COUNT 15.3 K/mm3 (4.0-10.0)
[2021-04-17] MEDS ORDERED: EPOETIN ALFA-EPBX 10,000 UNIT/ML VIAL SQ ONE (09:15)
[2021-04-17 09:42] LABS: BILIRUBIN,TOTAL 0.3 mg/dL (0.2-1); BLOOD UREA NITROGEN 48.7 mg/dL (7-18); CALCIUM 9.2 mg/dL (8.5-10.1); MAGNESIUM 2.4 mg/dL (1.8-2.4); PHOSPHOROUS 2.1 mg/dL (2.5-4.9); TOT PROT 6.7 g/dl (6.4-8.2)
[2021-04-17] MEDS ORDERED: PT OWN MED DRAWER 7, Y5N ONE (10:18)
[2021-04-17] MEDS: BUDESONIDE 0.5 MG/2 ML INH SUSP VIAL NEB SCH ×2 (10:49→21:17)
[2021-04-17] MEDS: POLYETHYLENE GLYCOL (HEALTHYLAX) 3350 17 GM PACKET GT SCH (11:24)
[2021-04-17] MEDS: METOPROLOL TARTRATE 25 MG TABLET (FP) GT SCH (11:25)
[2021-04-17] MEDS: levETIRAcetam 500 MG/5 ML INJECTION VIAL IVPB SCH ×2 (11:28→22:07)
[2021-04-17] MEDS: MIDODRINE HCL 2.5 MG TABLET GT SCH ×3 (11:29→18:08)
[2021-04-17] MEDS: AMINO ACIDS/PROTEIN HYDROLYS 30 ML LIQUID.PKT PO SCH (18:08)
[2021-04-18] MEDS: POLYETHYLENE GLYCOL (HEALTHYLAX) 3350 17 GM PACKET GT SCH ×3 (00:47→21:25)
[2021-04-18] MEDS ORDERED: MEROPENEM 500 MG VIAL (RESTRICTED TO ID) IVPB ONE ×3 (01:16→17:14)
[2021-04-18] MEDS ORDERED: DEXTROSE 5%-WATER 100 ML IVPB ONE ×3 (01:17→17:14)
[2021-04-18] MEDS: MEROPENEM 500 MG in DEXTROSE 5%-WATER 100 ML IVPB SCH ×3 (01:30→18:55)
[2021-04-18] MEDS: METOPROLOL TARTRATE 25 MG TABLET (FP) GT SCH ×3 (04:40→21:27)
[2021-04-18] MEDS: AMINO ACIDS/PROTEIN HYDROLYS 30 ML LIQUID.PKT PO SCH ×2 (08:57→18:56)
[2021-04-18 09:34] LABS: BASO % 0.9 % (0-2.0); EOS % 7.8 % (0-4.5); HEMATOCRIT 31.1 % (32.4-45.2); LYMPH % 7.3 % (8-40); MCH 28.5 pg (25.7-33.7); MCHC 32.1 g/dl (32.0-36.0); MEAN CELL VOLUME 88.6 fl (80-96); MEAN PLT VOLUME 8.4 fl (7.5-11.1); MONO % 11.4 % (3.8-10.2); NEUT % 72.6 % (42.8-82.8); PLATELET COUNT 394 10^3/uL (134-434); RDW 18.8 % (11.6-15.6); WHITE BLOOD COUNT 17.5 K/mm3 (4.0-10.0)
[2021-04-18] MEDS: BUDESONIDE 0.5 MG/2 ML INH SUSP VIAL NEB SCH ×2 (10:15→20:22)
[2021-04-18] MEDS ORDERED: PT OWN MED DRAWER 7, Y5N ONE (11:53)
[2021-04-18 11:55] LABS: ALBUMIN 2.4 g/dl (3.4-5.0); BILIRUBIN,TOTAL 0.3 mg/dL (0.2-1); BLOOD UREA NITROGEN 27.7 mg/dL (7-18); CALCIUM 9.9 mg/dL (8.5-10.1); CREATININE 3.2 mg/dL (0.55-1.3); MAGNESIUM 2.5 mg/dL (1.8-2.4); PHOSPHOROUS 1.8 mg/dL (2.5-4.9); TOT PROT 7.2 g/dl (6.4-8.2)
[2021-04-18] MEDS: levETIRAcetam 500 MG/5 ML ORAL SOLUTION (UNIT-DOSE CUPS) GT SCH ×2 (11:56→21:26)
[2021-04-18] MEDS: VITAMIN B COMP W-C 1 EA TABLET (NEPHRO-VITE) PO SCH (11:56)
[2021-04-18] MEDS: MIDODRINE HCL 2.5 MG TABLET GT SCH ×3 (11:57→18:56)
[2021-04-19] MEDS ORDERED: DEXTROSE 5%-WATER 100 ML IVPB ONE ×2 (01:33→12:11)
[2021-04-19] MEDS ORDERED: MEROPENEM 500 MG VIAL (RESTRICTED TO ID) IVPB ONE ×2 (01:33→12:11)
[2021-04-19] MEDS: MEROPENEM 500 MG in DEXTROSE 5%-WATER 100 ML IVPB SCH ×2 (01:41→12:15)
[2021-04-19] MEDS: BUDESONIDE 0.5 MG/2 ML INH SUSP VIAL NEB SCH ×2 (07:51→20:03)
[2021-04-19] MEDS ORDERED: SODIUM CHLORIDE 250 ML IV PRN (09:00)
[2021-04-19 09:43] LABS: EOS % 8.7 % (0-4.5); HEMATOCRIT 28.9 % (32.4-45.2); HEMOGLOBIN 9.3 GM/dL (10.7-15.3); MCH 28.3 pg (25.7-33.7); MCHC 32.2 g/dl (32.0-36.0); MEAN CELL VOLUME 88.2 fl (80-96); MEAN PLT VOLUME 8.6 fl (7.5-11.1); MONO % 9.5 % (3.8-10.2); NEUT % 71.8 % (42.8-82.8); PLATELET COUNT 380 10^3/uL (134-434); RBC 3.28 M/mm3 (3.60-5.2); RDW 18.7 % (11.6-15.6); WHITE BLOOD COUNT 16.6 K/mm3 (4.0-10.0)
[2021-04-19] MEDS ORDERED: EPOETIN ALFA-EPBX 10,000 UNIT/ML VIAL IVPUSH ONE (10:00)
[2021-04-19 10:48] LABS: CREATININE 4.1 mg/dL (0.55-1.3)
[2021-04-19 10:49] LABS: ALBUMIN 2.1 g/dl (3.4-5.0); BILIRUBIN,TOTAL 0.2 mg/dL (0.2-1); TOT PROT 6.8 g/dl (6.4-8.2)
[2021-04-19 11:19] LABS: BLOOD UREA NITROGEN 45.4 mg/dL (7-18); MAGNESIUM 2.6 mg/dL (1.8-2.4); PHOSPHOROUS 1.9 mg/dL (2.5-4.9)
[2021-04-19] MEDS: POLYETHYLENE GLYCOL (HEALTHYLAX) 3350 17 GM PACKET GT SCH ×2 (12:10→21:09)
[2021-04-19] MEDS ORDERED: PT OWN MED DRAWER 7, Y5N ONE ×2 (12:12→18:07)
[2021-04-19] MEDS: AMINO ACIDS/PROTEIN HYDROLYS 30 ML LIQUID.PKT PO SCH ×2 (12:16→18:21)
[2021-04-19] MEDS: levETIRAcetam 500 MG/5 ML ORAL SOLUTION (UNIT-DOSE CUPS) GT SCH ×2 (12:16→21:08)
[2021-04-19] MEDS: SCOPOLAMINE HYDROBROMIDE 1 PATCH PATCH.TD72 TD SCH (12:16)
[2021-04-19] MEDS: MIDODRINE HCL 2.5 MG TABLET GT SCH ×3 (12:17→18:21)
[2021-04-19] MEDS: METOPROLOL TARTRATE 25 MG TABLET (FP) GT SCH ×2 (12:17→21:07)
[2021-04-19] MEDS: VITAMIN B COMP W-C 1 EA TABLET (NEPHRO-VITE) PO SCH (12:17)
[2021-04-19] MEDS: LINEZOLID 100 MG/5 ML BTL (RESTRICTED TO ID) GT SCH (21:09)
[2021-04-20] MEDS: BUDESONIDE 0.5 MG/2 ML INH SUSP VIAL NEB SCH ×2 (07:52→19:59)
[2021-04-20 09:09] LABS: EOS % 10.5 % (0-4.5); HEMATOCRIT 30.4 % (32.4-45.2); HEMOGLOBIN 9.6 GM/dL (10.7-15.3); LYMPH % 9.8 % (8-40); MCHC 31.7 g/dl (32.0-36.0); MEAN CELL VOLUME 88.3 fl (80-96); MEAN PLT VOLUME 7.6 fl (7.5-11.1); MONO % 11.9 % (3.8-10.2); NEUT % 66.8 % (42.8-82.8); PLATELET COUNT 357 10^3/uL (134-434); RBC 3.44 M/mm3 (3.60-5.2); RDW 18.9 % (11.6-15.6); WHITE BLOOD COUNT 13.8 K/mm3 (4.0-10.0)
[2021-04-20] MEDS ORDERED: DEXTROSE 5% IVPB SCH (10:00)
[2021-04-20] MEDS ORDERED: CEFTAZIDIME PENTAHYDRATE IVPB SCH (10:00)
[2021-04-20] MEDS ORDERED: WATER IVPB SCH (10:00)
[2021-04-20] MEDS ORDERED: PT OWN MED DRAWER 7, Y5N ONE ×2 (12:06→21:45)
[2021-04-20] MEDS: levETIRAcetam 500 MG/5 ML ORAL SOLUTION (UNIT-DOSE CUPS) GT SCH ×2 (12:08→21:48)
[2021-04-20] MEDS: LINEZOLID 100 MG/5 ML BTL (RESTRICTED TO ID) GT SCH ×2 (12:09→21:47)
[2021-04-20] MEDS: MIDODRINE HCL 2.5 MG TABLET GT SCH ×3 (12:09→18:50)
[2021-04-20] MEDS: POLYETHYLENE GLYCOL (HEALTHYLAX) 3350 17 GM PACKET GT SCH ×2 (12:10→21:46)
[2021-04-20] MEDS: VITAMIN B COMP W-C 1 EA TABLET (NEPHRO-VITE) PO SCH (12:10)
[2021-04-20] MEDS: METOPROLOL TARTRATE 25 MG TABLET (FP) GT SCH ×3 (12:17→22:25)
[2021-04-20] MEDS: AMINO ACIDS/PROTEIN HYDROLYS 30 ML LIQUID.PKT PO SCH ×2 (12:17→18:50)
[2021-04-20] MEDS ORDERED: CEFTAZIDIME PENTAHYDRATE 0.5 GM in DEXTROSE 5%-WATER - 50 ML IVPB SCH (12:20)
[2021-04-20 12:58] LABS: ALBUMIN 2.5 g/dl (3.4-5.0); BILIRUBIN,TOTAL 0.4 mg/dL (0.2-1); BLOOD UREA NITROGEN 34.9 mg/dL (7-18); CALCIUM 10.2 mg/dL (8.5-10.1); CREATININE 2.9 mg/dL (0.55-1.3); MAGNESIUM 2.5 mg/dL (1.8-2.4); PHOSPHOROUS 1.5 mg/dL (2.5-4.9)
[2021-04-20] MEDS: CEFTAZIDIME PENTAHYDRATE 0.5 GM in DEXTROSE 5%-WATER - 50 ML IVPB SCH (14:46)
[2021-04-21] MEDS ORDERED: PT OWN MED DRAWER 7, Y5N ONE ×2 (07:24→10:37)
[2021-04-21] MEDS: MIDODRINE HCL 2.5 MG TABLET GT SCH ×3 (07:25→13:09)
[2021-04-21] MEDS ORDERED: SODIUM CHLORIDE 250 ML IV PRN (07:40)
[2021-04-21] MEDS: BUDESONIDE 0.5 MG/2 ML INH SUSP VIAL NEB SCH (08:15)
[2021-04-21] MEDS ORDERED: EPOETIN ALFA-EPBX 10,000 UNIT/ML VIAL IVPUSH ONE (09:00)
[2021-04-21] MEDS: CEFTAZIDIME PENTAHYDRATE 0.5 GM in DEXTROSE 5%-WATER - 50 ML IVPB SCH (11:11)
[2021-04-21] MEDS: VITAMIN B COMP W-C 1 EA TABLET (NEPHRO-VITE) PO SCH (11:12)
[2021-04-21] MEDS: levETIRAcetam 500 MG/5 ML ORAL SOLUTION (UNIT-DOSE CUPS) GT SCH (11:13)
[2021-04-21] MEDS: METOPROLOL TARTRATE 25 MG TABLET (FP) GT SCH (11:13)
[2021-04-21] MEDS: AMINO ACIDS/PROTEIN HYDROLYS 30 ML LIQUID.PKT PO SCH (11:13)
[2021-04-21] MEDS: POLYETHYLENE GLYCOL (HEALTHYLAX) 3350 17 GM PACKET GT SCH (11:13)
[2021-04-21] MEDS: LINEZOLID 100 MG/5 ML BTL (RESTRICTED TO ID) GT SCH (11:15)
[2021-04-21 13:59] VITALS: BP 126/50; PULSE 62; TEMP 98.3
== END 2021-04-21 16:50 | DRG 871 ==
LOC: JER 13:50 → JERBED 18:12 → J5S 04-12 08:32
PROVIDERS: ADMIT Internal Medicine; ATTEND Internal Medicine
PROC: 3E0G76Z Introduction of Nutritional Substance into Upper GI, Via Natural or Artificial Opening (ICD-10-PCS; principal; 2021-04-11)
PROC: 5A1D70Z Performance of Urinary Filtration, Intermittent, Less than 6 Hours Per Day (ICD-10-PCS; 2021-04-12)
PROC: 30233N1 Transfusion of Nonautologous Red Blood Cells into Peripheral Vein, Percutaneous Approach (ICD-10-PCS; 2021-04-16)
DX: A41.9 Sepsis, unspecified organism (principal); L89.154 Pressure ulcer of sacral region, stage 4; J18.9 Pneumonia, unspecified organism; N18.6 End stage renal disease; M46.28 Osteomyelitis of vertebra, sacral and sacrococcygeal region; E87.1 Hypo-osmolality and hyponatremia; K92.2 Gastrointestinal hemorrhage, unspecified; J96.10 Chronic respiratory failure, unspecified whether with hypoxia or hypercapnia; J98.11 Atelectasis; J44.9 Chronic obstructive pulmonary disease, unspecified; I48.91 Unspecified atrial fibrillation; Z79.01 Long term (current) use of anticoagulants; Z93.0 Tracheostomy status; Z93.1 Gastrostomy status; I44.0 Atrioventricular block, first degree; G40.909 Epilepsy, unspecified, not intractable, without status epilepticus; D63.1 Anemia in chronic kidney disease; Z99.2 Dependence on renal dialysis; F03.90 Unspecified dementia, unspecified severity, without behavioral disturbance, psychotic disturbance, mood disturbance, and anxiety; D75.839 Thrombocytosis, unspecified; I35.0 Nonrheumatic aortic (valve) stenosis; R13.10 Dysphagia, unspecified
CPT/HCPCS: 31502; 36415; 36430; 70450-TC; 71045-TC-FY; 71250-TC; 74176-TC; 76775-TC; 80053; 80177; 81003; 82272; 82550; 82553; 82728; 82803; 82962; 82977; 83540; 83550; 83605; 83735; 84100; 84484; 85025; 85045; 85610; 85730; 86705; 86803; 86850; 86900; 86901; 86922; 87040; 87070; 87077; 87086; 87186; 87205; 87340; 87517; 87902; 93005; 93010; 93930; 93971; 94640; 99285-25; C9803; G0480; J1756; J2020; J3243; P9058; Q5106; U0003; U0005

== ENCOUNTER 2021-04-21 20:17 | Inpatient (IN) | payer OTHER ==
[2021-04-21 20:50] VITALS: BMI 29.2
[2021-04-22] MEDS ORDERED: PATIENT'S OWN MEDICATION (NON-FORMULARY) (Ipratropium/Albuterol Sulfate 1 PUFF Inhaler) IH PRN (08:04)
[2021-04-22] MEDS ORDERED: FAMOTIDINE 40 MG/5 ML ORAL SUSPENSION NR SCH (08:15)
[2021-04-22] MEDS ORDERED: ALBUTEROL SO4 2.5/IPRATROPIUM 0.5 INH SOL 3 ML VIAL.NEB. NEB PRN (09:13)
[2021-04-22] MEDS ORDERED: LINEZOLID 100 MG/5 ML BTL (RESTRICTED TO ID) GT SCH (10:00)
[2021-04-22] MEDS ORDERED: SCOPOLAMINE HYDROBROMIDE 1 PATCH PATCH.TD72 TD SCH (10:00)
[2021-04-22] MEDS ORDERED: cefTAZidime PENTAHYDRATE 1 GM VIAL (RESTRICTED TO ID) IVPB SCH (10:00)
[2021-04-22] MEDS ORDERED: FAMOTIDINE 40 MG/5 ML ORAL SUSPENSION NGT SCH (10:06)
[2021-04-22] MEDS: MIDODRINE HCL 5 MG TABLET GT SCH ×3 (10:22→17:21)
[2021-04-22] MEDS: levETIRAcetam 500 MG/5 ML ORAL SOLUTION (UNIT-DOSE CUPS) GT SCH ×2 (10:22→21:40)
[2021-04-22] MEDS: ASPIRIN 81 MG CHEWABLE TABLETS GT SCH (10:22)
[2021-04-22] MEDS: METOPROLOL TARTRATE 25 MG TABLET (FP) GT SCH ×2 (10:22→21:40)
[2021-04-22] MEDS: ZINC SULFATE 220 MG CAPSULE (FP) GT SCH (10:22)
[2021-04-22] MEDS: APIXABAN 2.5 MG TABLET GT SCH ×2 (10:22→21:40)
[2021-04-22] MEDS: LINEZOLID 100 MG/5 ML BTL (RESTRICTED TO ID) GT SCH ×2 (10:23→21:40)
[2021-04-22] MEDS: MULTIVIT-MINERALS ORAL LIQUID GT SCH (10:23)
[2021-04-22] MEDS: CEFTAZIDIME PENTAHYDRATE 0.5 GM in DEXTROSE 5%-WATER - 50 ML IVPB SCH (10:24)
[2021-04-22] MEDS: BUDESONIDE 0.5 MG/2 ML INH SUSP VIAL NEB SCH ×2 (11:17→20:20)
[2021-04-22] MEDS ORDERED: PT OWN MED DRAWER 7, Y5N ONE ×2 (14:24→21:39)
[2021-04-23] MEDS: BUDESONIDE 0.5 MG/2 ML INH SUSP VIAL NEB SCH ×2 (08:12→20:05)
[2021-04-23] MEDS ORDERED: PT OWN MED DRAWER 7, Y5N ONE ×2 (11:53→20:38)
[2021-04-23] MEDS: MIDODRINE HCL 5 MG TABLET GT SCH ×3 (12:02→19:25)
[2021-04-23] MEDS: APIXABAN 2.5 MG TABLET GT SCH (12:02)
[2021-04-23] MEDS: METOPROLOL TARTRATE 25 MG TABLET (FP) GT SCH (12:02)
[2021-04-23] MEDS: LINEZOLID 100 MG/5 ML BTL (RESTRICTED TO ID) GT SCH (12:03)
[2021-04-23] MEDS: MULTIVIT-MINERALS ORAL LIQUID GT SCH (12:03)
[2021-04-23] MEDS: levETIRAcetam 500 MG/5 ML ORAL SOLUTION (UNIT-DOSE CUPS) GT SCH (12:03)
[2021-04-23] MEDS: ASPIRIN 81 MG CHEWABLE TABLETS GT SCH (12:03)
[2021-04-23] MEDS: ZINC SULFATE 220 MG CAPSULE (FP) GT SCH (12:04)
[2021-04-23] MEDS: CEFTAZIDIME PENTAHYDRATE 0.5 GM in DEXTROSE 5%-WATER - 50 ML IVPB SCH (12:47)
[2021-04-23] MEDS ORDERED: AMINO ACIDS/PROTEIN HYDROLYS 30 ML LIQUID.PKT PO SCH ×2 (17:30)
[2021-04-23 18:40] VITALS: BP 137/53; TEMP 98.5
[2021-04-23 20:59] VITALS: PULSE 63
[2021-04-23] MEDS ORDERED: ASCORBIC ACID 500 MG TABLET (FP) GT SCH ×2 (22:00)
== END 2021-04-23 21:24 | DRG 377 ==
LOC: JER 20:17 → JERBED 21:10 → J5S 04-22 00:18
PROVIDERS: ATTEND Internal Medicine
PROC: 3E0G76Z Introduction of Nutritional Substance into Upper GI, Via Natural or Artificial Opening (ICD-10-PCS; principal; 2021-04-21)
DX: K92.0 Hematemesis (principal); N18.6 End stage renal disease; D72.829 Elevated white blood cell count, unspecified; J44.9 Chronic obstructive pulmonary disease, unspecified; I48.91 Unspecified atrial fibrillation; Z93.0 Tracheostomy status; Z93.1 Gastrostomy status; Z99.2 Dependence on renal dialysis; G40.909 Epilepsy, unspecified, not intractable, without status epilepticus; Z86.73 Personal history of transient ischemic attack (TIA), and cerebral infarction without residual deficits; D64.9 Anemia, unspecified; R13.10 Dysphagia, unspecified; I95.89 Other hypotension; Z85.3 Personal history of malignant neoplasm of breast
CPT/HCPCS: 71045-TC-FY; 87804; 87807; 94640; 99285-25; C9803; J2020; U0003; U0005

== ENCOUNTER 2021-04-25 07:24 | Inpatient (IN) | payer OTHER ==
[2021-04-25 08:27] LABS: BASO % 0.5 % (0-2.0); EOS % 3.9 % (0-4.5); HEMATOCRIT 33.4 % (32.4-45.2); HEMOGLOBIN 10.5 GM/dL (10.7-15.3); MCH 27.9 pg (25.7-33.7); MCHC 31.6 g/dl (32.0-36.0); MEAN CELL VOLUME 88.3 fl (80-96); MEAN PLT VOLUME 7.6 fl (7.5-11.1); MONO % 6.6 % (3.8-10.2); PLATELET COUNT 348 10^3/uL (134-434); RBC 3.78 M/mm3 (3.60-5.2); RDW 18.8 % (11.6-15.6); WHITE BLOOD COUNT 17.2 K/mm3 (4.0-10.0)
[2021-04-25 08:37] LABS: INR 1.27 (0.83-1.09); PROTHROMBIN TIME (PATIENT) 14.3 SEC (9.7-13.0)
[2021-04-25 08:47] LABS: CALCIUM 9.8 mg/dL (8.5-10.1)
[2021-04-25 08:48] LABS: ALBUMIN 2.5 g/dl (3.4-5.0); BLOOD UREA NITROGEN 37.1 mg/dL (7-18)
[2021-04-25 08:51] LABS: CREATININE 3.2 mg/dL (0.55-1.3)
[2021-04-25 08:52] LABS: BILIRUBIN,TOTAL 0.4 mg/dL (0.2-1)
[2021-04-25 08:53] LABS: TOT PROT 7.7 g/dl (6.4-8.2)
[2021-04-25] MEDS ORDERED: PANTOPRAZOLE SODIUM 40 MG VIAL IVPUSH ONE (08:59)
[2021-04-25] MEDS ORDERED: PANTOPRAZOLE SODIUM 40 MG/100 ML BAG IVPB ONE (09:07)
[2021-04-25] MEDS ORDERED: PANTOPRAZOLE SODIUM 40 MG VIAL ONE (09:08)
[2021-04-25] MEDS ORDERED: PATIENT'S OWN MEDICATION (NON-FORMULARY) (Ipratropium/Albuterol Sulfate 1 PUFF Inhaler) IH PRN (10:40)
[2021-04-25] MEDS ORDERED: CEFTAZIDIME PENTAHYDRATE 1 GM in DEXTROSE 5%-WATER - 50 ML IVPB ONE (11:30)
[2021-04-25] MEDS ORDERED: DEXTROSE 5%-WATER - 50 ML IVPB ONE (15:25)
[2021-04-25] MEDS ORDERED: cefTAZidime PENTAHYDRATE 1 GM VIAL (RESTRICTED TO ID) ONE (15:25)
[2021-04-25] MEDS: levETIRAcetam 500 MG/5 ML ORAL SOLUTION (UNIT-DOSE CUPS) GT SCH ×2 (16:42→22:06)
[2021-04-25] MEDS: LINEZOLID 100 MG/5 ML BTL (RESTRICTED TO ID) GT SCH ×2 (18:19→23:06)
[2021-04-25] MEDS: BUDESONIDE 0.5 MG/2 ML INH SUSP VIAL NEB SCH (21:32)
[2021-04-25] MEDS: DOCUSATE NA 100 MG/10 ML UNIT-DOSE CUPS GT SCH (22:06)
[2021-04-25] MEDS: PANTOPRAZOLE SODIUM 40 MG VIAL IVPUSH SCH (22:07)
[2021-04-26] MEDS: BUDESONIDE 0.5 MG/2 ML INH SUSP VIAL NEB SCH ×2 (08:40→20:30)
[2021-04-26] MEDS ORDERED: LINEZOLID 100 MG/5 ML BTL (RESTRICTED TO ID) GT SCH (10:00)
[2021-04-26] MEDS ORDERED: cefTAZidime PENTAHYDRATE 1 GM VIAL (RESTRICTED TO ID) IVPB SCH (10:00)
[2021-04-26] MEDS ORDERED: SODIUM CHLORIDE 250 ML IV PRN (10:02)
[2021-04-26 10:55] LABS: ALBUMIN 2.7 g/dl (3.4-5.0); CALCIUM 10.1 mg/dL (8.5-10.1)
[2021-04-26 10:56] LABS: BLOOD UREA NITROGEN 48.6 mg/dL (7-18); MAGNESIUM 2.7 mg/dL (1.8-2.4)
[2021-04-26 10:58] LABS: CREATININE 4.6 mg/dL (0.55-1.3); PHOSPHOROUS 3.4 mg/dL (2.5-4.9)
[2021-04-26 11:00] LABS: BILIRUBIN,TOTAL 0.4 mg/dL (0.2-1); TOT PROT 7.8 g/dl (6.4-8.2)
[2021-04-26] MEDS ORDERED: EPOETIN ALFA-EPBX 4,000 UNIT/ML VIAL IVPUSH ONE (11:00)
[2021-04-26] MEDS: levETIRAcetam 500 MG/5 ML ORAL SOLUTION (UNIT-DOSE CUPS) GT SCH ×2 (11:40→22:17)
[2021-04-26] MEDS: PANTOPRAZOLE SODIUM 40 MG VIAL IVPUSH SCH ×2 (11:41→22:17)
[2021-04-26] MEDS ORDERED: DEXTROSE 5%-WATER - 50 ML IVPB ONE (17:52)
[2021-04-26] MEDS ORDERED: cefTAZidime PENTAHYDRATE 1 GM VIAL (RESTRICTED TO ID) ONE (17:52)
[2021-04-26] MEDS: CEFTAZIDIME PENTAHYDRATE 1 GM in DEXTROSE 5%-WATER - 50 ML IVPB SCH (17:56)
[2021-04-26] MEDS ORDERED: cefTAZidime PENTAHYDRATE 1 GM/50ML PRE-DOCKED (RESTRICTED TO ID) IVPB SCH (18:00)
[2021-04-26 18:37] LABS: BASO % 0.7 % (0-2.0); HEMATOCRIT 29.1 % (32.4-45.2); HEMOGLOBIN 9.3 GM/dL (10.7-15.3); LYMPH % 6.1 % (8-40); MCH 28.2 pg (25.7-33.7); MCHC 31.9 g/dl (32.0-36.0); MEAN CELL VOLUME 88.3 fl (80-96); MEAN PLT VOLUME 7.7 fl (7.5-11.1); MONO % 8.9 % (3.8-10.2); NEUT % 81.3 % (42.8-82.8); PLATELET COUNT 303 10^3/uL (134-434)
[2021-04-26] MEDS ORDERED: PT OWN MED DRAWER 7, Y5N ONE (21:57)
[2021-04-26] MEDS: DOCUSATE NA 100 MG/10 ML UNIT-DOSE CUPS GT SCH (22:17)
[2021-04-26] MEDS: LINEZOLID 100 MG/5 ML BTL (RESTRICTED TO ID) PO SCH (22:18)
[2021-04-27] MEDS ORDERED: cefTAZidime PENTAHYDRATE 1 GM VIAL (RESTRICTED TO ID) ONE (00:58)
[2021-04-27] MEDS ORDERED: DEXTROSE 5%-WATER - 50 ML IVPB ONE (00:58)
[2021-04-27] MEDS: CEFTAZIDIME PENTAHYDRATE 1 GM in DEXTROSE 5%-WATER - 50 ML IVPB SCH (01:25)
[2021-04-27 08:05] LABS: HEMATOCRIT 28.9 % (32.4-45.2); HEMOGLOBIN 9.3 GM/dL (10.7-15.3); MCH 28.4 pg (25.7-33.7); MCHC 32.1 g/dl (32.0-36.0); MEAN CELL VOLUME 88.5 fl (80-96); MEAN PLT VOLUME 7.9 fl (7.5-11.1); PLATELET COUNT 295 10^3/uL (134-434); RBC 3.26 M/mm3 (3.60-5.2); WHITE BLOOD COUNT 14.1 K/mm3 (4.0-10.0)
[2021-04-27] MEDS: BUDESONIDE 0.5 MG/2 ML INH SUSP VIAL NEB SCH ×2 (08:37→20:10)
[2021-04-27 09:58] LABS: BASO % 1.1 % (0-2.0); HEMOGLOBIN 9.7 GM/dL (10.7-15.3); LYMPH % 11.2 % (8-40); MCH 28.2 pg (25.7-33.7); MCHC 31.3 g/dl (32.0-36.0); MEAN CELL VOLUME 90.1 fl (80-96); MEAN PLT VOLUME 7.9 fl (7.5-11.1); MONO % 9.1 % (3.8-10.2); NEUT % 71.6 % (42.8-82.8); PLATELET COUNT 289 10^3/uL (134-434); RBC 3.44 M/mm3 (3.60-5.2); RDW 19.2 % (11.6-15.6); WHITE BLOOD COUNT 12.8 K/mm3 (4.0-10.0)
[2021-04-27] MEDS ORDERED: PT OWN MED DRAWER 7, Y5N ONE ×2 (10:06→23:01)
[2021-04-27] MEDS: PANTOPRAZOLE SODIUM 40 MG VIAL IVPUSH SCH (10:27)
[2021-04-27] MEDS: LINEZOLID 100 MG/5 ML BTL (RESTRICTED TO ID) PO SCH ×2 (10:27→23:14)
[2021-04-27] MEDS: levETIRAcetam 500 MG/5 ML ORAL SOLUTION (UNIT-DOSE CUPS) GT SCH ×2 (10:28→23:14)
[2021-04-27 10:35] LABS: CALCIUM 9.8 mg/dL (8.5-10.1)
[2021-04-27 10:36] LABS: ALBUMIN 2.8 g/dl (3.4-5.0); BLOOD UREA NITROGEN 24.4 mg/dL (7-18); MAGNESIUM 2.5 mg/dL (1.8-2.4)
[2021-04-27 10:39] LABS: CREATININE 3.4 mg/dL (0.55-1.3); PHOSPHOROUS 1.7 mg/dL (2.5-4.9)
[2021-04-27 10:40] LABS: BILIRUBIN,TOTAL 0.4 mg/dL (0.2-1); TOT PROT 7.3 g/dl (6.4-8.2)
[2021-04-27] MEDS ORDERED: EPOETIN ALFA-EPBX 4,000 UNIT/ML VIAL SQ ONE (14:23)
[2021-04-27] MEDS: SCOPOLAMINE HYDROBROMIDE 1 PATCH PATCH.TD72 TD SCH (19:02)
[2021-04-27] MEDS: ASPIRIN 81 MG CHEWABLE TABLETS GT SCH (19:02)
[2021-04-27] MEDS: MIDODRINE HCL 5 MG TABLET GT SCH (19:02)
[2021-04-27] MEDS: APIXABAN 2.5 MG TABLET GT SCH (23:13)
[2021-04-27] MEDS: DOCUSATE NA 100 MG/10 ML UNIT-DOSE CUPS GT SCH (23:13)
[2021-04-27] MEDS: METOPROLOL TARTRATE 25 MG TABLET (FP) GT SCH (23:25)
[2021-04-28] MEDS: MIDODRINE HCL 5 MG TABLET GT SCH ×4 (06:50→18:46)
[2021-04-28] MEDS: BUDESONIDE 0.5 MG/2 ML INH SUSP VIAL NEB SCH ×2 (08:29→20:17)
[2021-04-28] MEDS ORDERED: SODIUM CHLORIDE 250 ML IV PRN (09:02)
[2021-04-28 09:11] LABS: CALCIUM 9.5 mg/dL (8.5-10.1)
[2021-04-28 09:12] LABS: ALBUMIN 2.6 g/dl (3.4-5.0); BLOOD UREA NITROGEN 38.3 mg/dL (7-18)
[2021-04-28 09:13] LABS: MAGNESIUM 2.4 mg/dL (1.8-2.4)
[2021-04-28 09:15] LABS: CREATININE 4.7 mg/dL (0.55-1.3)
[2021-04-28 09:16] LABS: BILIRUBIN,TOTAL 0.3 mg/dL (0.2-1)
[2021-04-28] MEDS ORDERED: EPOETIN ALFA-EPBX 4,000 UNIT/ML VIAL SQ ONE (09:30)
[2021-04-28] MEDS ORDERED: PANTOPRAZOLE SOD 40 MG SUSPENSION PACKET PO SCH (10:00)
[2021-04-28] MEDS ORDERED: PT OWN MED DRAWER 7, Y5N ONE ×2 (12:44→21:33)
[2021-04-28] MEDS: ASPIRIN 81 MG CHEWABLE TABLETS GT SCH (12:53)
[2021-04-28] MEDS: APIXABAN 2.5 MG TABLET GT SCH ×2 (12:53→22:41)
[2021-04-28] MEDS: METOPROLOL TARTRATE 25 MG TABLET (FP) GT SCH ×2 (12:53→22:42)
[2021-04-28] MEDS: levETIRAcetam 500 MG/5 ML ORAL SOLUTION (UNIT-DOSE CUPS) GT SCH ×2 (12:53→22:41)
[2021-04-28] MEDS: FAMOTIDINE 40 MG/5 ML ORAL SUSPENSION PEG SCH ×2 (12:54→22:44)
[2021-04-28] MEDS: ZINC SULFATE 220 MG TABLET GT SCH (12:54)
[2021-04-28] MEDS ORDERED: NAPH,MB-DB/K PH,MBDB POWDER PACKET GT ONE (12:58)
[2021-04-28] MEDS ORDERED: POTASSIUM CHLORIDE ORAL LIQUID 20 MEQ/15 ML PO ONE (13:30)
[2021-04-28] MEDS: LINEZOLID 100 MG/5 ML BTL (RESTRICTED TO ID) PO SCH (14:11)
[2021-04-28] MEDS: DOCUSATE NA 100 MG/10 ML UNIT-DOSE CUPS GT SCH (22:41)
[2021-04-29] MEDS: BUDESONIDE 0.5 MG/2 ML INH SUSP VIAL NEB SCH ×2 (08:15→20:57)
[2021-04-29] MEDS: METOPROLOL TARTRATE 25 MG TABLET (FP) GT SCH ×2 (09:46→22:30)
[2021-04-29] MEDS: MIDODRINE HCL 5 MG TABLET GT SCH ×3 (09:46→17:26)
[2021-04-29] MEDS: APIXABAN 2.5 MG TABLET GT SCH ×2 (09:46→22:29)
[2021-04-29] MEDS: FAMOTIDINE 40 MG/5 ML ORAL SUSPENSION PEG SCH ×2 (09:46→22:30)
[2021-04-29] MEDS: levETIRAcetam 500 MG/5 ML ORAL SOLUTION (UNIT-DOSE CUPS) GT SCH ×2 (09:46→22:29)
[2021-04-29] MEDS: ASPIRIN 81 MG CHEWABLE TABLETS GT SCH (09:46)
[2021-04-29] MEDS: ZINC SULFATE 220 MG TABLET GT SCH (09:47)
[2021-04-29 10:39] LABS: BLOOD UREA NITROGEN 36.1 mg/dL (7-18); CALCIUM 10.6 mg/dL (8.5-10.1); MAGNESIUM 2.6 mg/dL (1.8-2.4)
[2021-04-29 10:42] LABS: CREATININE 3.7 mg/dL (0.55-1.3); PHOSPHOROUS 1.6 mg/dL (2.5-4.9)
[2021-04-29 10:44] LABS: BILIRUBIN,TOTAL 0.2 mg/dL (0.2-1); TOT PROT 8.6 g/dl (6.4-8.2)
[2021-04-29 10:45] LABS: ALBUMIN 3.2 g/dl (3.4-5.0)
[2021-04-29 13:37] LABS: HEMATOCRIT 33.5 % (32.4-45.2); HEMOGLOBIN 10.6 GM/dL (10.7-15.3); MCH 28.6 pg (25.7-33.7); MCHC 31.6 g/dl (32.0-36.0); MEAN CELL VOLUME 90.4 fl (80-96); MEAN PLT VOLUME 7.7 fl (7.5-11.1); PLATELET COUNT 311 10^3/uL (134-434); RBC 3.71 M/mm3 (3.60-5.2); RDW 19.4 % (11.6-15.6); WHITE BLOOD COUNT 13.9 K/mm3 (4.0-10.0)
[2021-04-29] MEDS ORDERED: PT OWN MED DRAWER 7, Y5N ONE (22:28)
[2021-04-29] MEDS: DOCUSATE NA 100 MG/10 ML UNIT-DOSE CUPS GT SCH (22:29)
[2021-04-30] MEDS: BUDESONIDE 0.5 MG/2 ML INH SUSP VIAL NEB SCH ×2 (08:27→20:22)
[2021-04-30 10:48] LABS: CALCIUM 10.6 mg/dL (8.5-10.1)
[2021-04-30 10:49] LABS: ALBUMIN 2.8 g/dl (3.4-5.0); BLOOD UREA NITROGEN 59.2 mg/dL (7-18); MAGNESIUM 2.7 mg/dL (1.8-2.4)
[2021-04-30 10:51] LABS: BILIRUBIN,TOTAL 0.3 mg/dL (0.2-1); TOT PROT 7.8 g/dl (6.4-8.2)
[2021-04-30 10:52] LABS: PHOSPHOROUS 1.7 mg/dL (2.5-4.9)
[2021-04-30] MEDS: MIDODRINE HCL 5 MG TABLET GT SCH ×3 (11:17→18:33)
[2021-04-30] MEDS: ZINC SULFATE 220 MG TABLET GT SCH (11:17)
[2021-04-30] MEDS: levETIRAcetam 500 MG/5 ML ORAL SOLUTION (UNIT-DOSE CUPS) GT SCH ×2 (11:17→22:39)
[2021-04-30] MEDS: FAMOTIDINE 40 MG/5 ML ORAL SUSPENSION PEG SCH (11:17)
[2021-04-30] MEDS: METOPROLOL TARTRATE 25 MG TABLET (FP) GT SCH ×2 (11:17→22:40)
[2021-04-30] MEDS: ASPIRIN 81 MG CHEWABLE TABLETS GT SCH (11:17)
[2021-04-30] MEDS: APIXABAN 2.5 MG TABLET GT SCH ×2 (11:17→22:40)
[2021-04-30 14:57] VITALS: BMI 30.5
[2021-04-30] MEDS: SCOPOLAMINE HYDROBROMIDE 1 PATCH PATCH.TD72 TD SCH (16:45)
[2021-04-30] MEDS ORDERED: PT OWN MED DRAWER 7, Y5N ONE (22:38)
[2021-04-30] MEDS: DOCUSATE NA 100 MG/10 ML UNIT-DOSE CUPS GT SCH (22:39)
[2021-05-01] MEDS: FAMOTIDINE 40 MG/5 ML ORAL SUSPENSION PEG SCH ×2 (00:23→12:48)
[2021-05-01] MEDS: BUDESONIDE 0.5 MG/2 ML INH SUSP VIAL NEB SCH ×2 (08:04→20:20)
[2021-05-01] MEDS ORDERED: EPOETIN ALFA-EPBX 4,000 UNIT/ML VIAL IVPUSH ONE (09:15)
[2021-05-01] MEDS ORDERED: PT OWN MED DRAWER 7, Y5N ONE (12:21)
[2021-05-01] MEDS: levETIRAcetam 500 MG/5 ML ORAL SOLUTION (UNIT-DOSE CUPS) GT SCH ×2 (12:46→21:48)
[2021-05-01] MEDS: METOPROLOL TARTRATE 25 MG TABLET (FP) GT SCH ×2 (12:47→21:48)
[2021-05-01] MEDS: ASPIRIN 81 MG CHEWABLE TABLETS GT SCH (12:48)
[2021-05-01] MEDS: MIDODRINE HCL 5 MG TABLET GT SCH ×3 (12:48→18:37)
[2021-05-01] MEDS: APIXABAN 2.5 MG TABLET GT SCH ×2 (12:48→21:48)
[2021-05-01] MEDS ORDERED: ZINC SULFATE 220 MG CAPSULE (FP) GT SCH (15:17)
[2021-05-01] MEDS: ZINC SULFATE 220 MG TABLET GT SCH (15:19)
[2021-05-01] MEDS: DOCUSATE NA 100 MG/10 ML UNIT-DOSE CUPS GT SCH (21:48)
[2021-05-02] MEDS: BUDESONIDE 0.5 MG/2 ML INH SUSP VIAL NEB SCH (07:25)
[2021-05-02] MEDS ORDERED: PT OWN MED DRAWER 7, Y5N ONE (09:02)
[2021-05-02] MEDS: levETIRAcetam 500 MG/5 ML ORAL SOLUTION (UNIT-DOSE CUPS) GT SCH (09:04)
[2021-05-02] MEDS: APIXABAN 2.5 MG TABLET GT SCH (09:05)
[2021-05-02] MEDS: ASPIRIN 81 MG CHEWABLE TABLETS GT SCH (09:05)
[2021-05-02] MEDS: MIDODRINE HCL 5 MG TABLET GT SCH ×2 (09:05→14:53)
[2021-05-02] MEDS: METOPROLOL TARTRATE 25 MG TABLET (FP) GT SCH ×2 (09:05→09:27)
[2021-05-02] MEDS: FAMOTIDINE 40 MG/5 ML ORAL SUSPENSION PEG SCH ×2 (09:06→17:39)
[2021-05-02] MEDS ORDERED: ACETAMINOPHEN 650 MG/20.3 ML ORAL SOLUTION (CUPS) PO ONE (11:45)
[2021-05-02] MEDS ORDERED: EPOETIN ALFA-EPBX 4,000 UNIT/ML VIAL SQ ONE (15:27)
[2021-05-02] MEDS ORDERED: SODIUM CHLORIDE 250 ML IV PRN (15:27)
[2021-05-02 17:29] VITALS: BP 122/66; PULSE 64; TEMP 98.5
== END 2021-05-02 17:34 | DRG 377 ==
LOC: JER 07:24 → JERBED 10:17 → J5S 13:05
PROVIDERS: ADMIT Internal Medicine; ATTEND Internal Medicine
PROC: 3E0G76Z Introduction of Nutritional Substance into Upper GI, Via Natural or Artificial Opening (ICD-10-PCS; principal; 2021-04-25)
PROC: 5A1D70Z Performance of Urinary Filtration, Intermittent, Less than 6 Hours Per Day (ICD-10-PCS; 2021-04-26)
DX: K92.0 Hematemesis (principal); L89.154 Pressure ulcer of sacral region, stage 4; N18.6 End stage renal disease; J96.10 Chronic respiratory failure, unspecified whether with hypoxia or hypercapnia; J98.11 Atelectasis; R78.81 Bacteremia; N39.0 Urinary tract infection, site not specified; I48.91 Unspecified atrial fibrillation; J44.9 Chronic obstructive pulmonary disease, unspecified; G40.909 Epilepsy, unspecified, not intractable, without status epilepticus; Z93.1 Gastrostomy status; Z74.01 Bed confinement status; Z86.73 Personal history of transient ischemic attack (TIA), and cerebral infarction without residual deficits; D72.829 Elevated white blood cell count, unspecified; R19.7 Diarrhea, unspecified; Z93.0 Tracheostomy status; I35.0 Nonrheumatic aortic (valve) stenosis; F03.90 Unspecified dementia, unspecified severity, without behavioral disturbance, psychotic disturbance, mood disturbance, and anxiety; D64.9 Anemia, unspecified; Z99.2 Dependence on renal dialysis
CPT/HCPCS: 36415; 71045-TC-FY; 74176-TC; 80048; 80053; 82272; 82962; 83735; 84100; 85025; 85027; 85610; 86850; 86900; 86901; 87040; 87045; 87046; 87177; 87205; 87209; 87324; 87449; 87804; 93005; 93010; 94640; 99285-25; C9803; J2020; Q5106; U0003; U0005

== ENCOUNTER 2021-05-17 17:40 | Inpatient (IN) | payer OTHER ==
[2021-05-17] MEDS ORDERED: SODIUM CHLORIDE 0.9% 500 ML INFUS.BAG IV ONE ×3 (18:16→23:41)
[2021-05-17] MEDS ORDERED: ACETAMINOPHEN 1000 MG/100 ML BAG IVPB ONE (18:16)
[2021-05-17] MEDS ORDERED: PANTOPRAZOLE SODIUM 40 MG VIAL IVPUSH ONE (18:21)
[2021-05-17] MEDS ORDERED: SODIUM CHLORIDE 0.9% 1000 ML INFUS.BAG IV ONE (18:36)
[2021-05-17] MEDS ORDERED: ACETAMINOPHEN INJECTION 100 ML IVPB ONE (18:41)
[2021-05-17] MEDS ORDERED: PANTOPRAZOLE SODIUM 40 MG VIAL ONE (18:41)
[2021-05-17 18:48] LABS: BASO % 0.4 % (0-2.0); EOS % 0.3 % (0-4.5); HEMATOCRIT 37.1 % (32.4-45.2); HEMOGLOBIN 11.5 GM/dL (10.7-15.3); MCH 27.9 pg (25.7-33.7); MCHC 31.1 g/dl (32.0-36.0); MEAN CELL VOLUME 89.8 fl (80-96); MEAN PLT VOLUME 7.9 fl (7.5-11.1); MONO % 7.5 % (3.8-10.2); NEUT % 86.8 % (42.8-82.8); PLATELET COUNT 520 10^3/uL (134-434); RBC 4.13 M/mm3 (3.60-5.2); RDW 19.2 % (11.6-15.6)
[2021-05-17 18:51] LABS: VENOUS BASE EXCESS 1.4 mmol/L (-2-2); VENOUS O2 SATURATION 59.4 % (70-80); VENOUS PCO2 52.8 mmHg (38-52); VENOUS PH 7.343 (7.310-7.410)
[2021-05-17 18:56] LABS: INR 1.34 (0.83-1.09); PROTHROMBIN TIME (PATIENT) 15.1 SEC (9.7-13.0)
[2021-05-17 18:58] LABS: ACTIVATED PTT 25.7 SECONDS (25.2-36.5)
[2021-05-17 19:16] LABS: BLOOD UREA NITROGEN 39.6 mg/dL (7-18); CALCIUM 10.2 mg/dL (8.5-10.1)
[2021-05-17 19:17] LABS: ALBUMIN 3.2 g/dl (3.4-5.0)
[2021-05-17 19:20] LABS: CREATININE 3.4 mg/dL (0.55-1.3); WHITE BLOOD COUNT 37.8 K/mm3 (4.0-10.0)
[2021-05-17 19:21] LABS: BILIRUBIN,TOTAL 0.3 mg/dL (0.2-1)
[2021-05-17 19:25] LABS: LACTIC ACID 4.6 mmol/L (0.4-2.0)
[2021-05-17] MEDS ORDERED: VANCOMYCIN 1 GM in D5W (PRE-DOCKED) 1,000 MG/250 ML IVPB ONE (19:47)
[2021-05-17] MEDS ORDERED: VANCOMYCIN 1 GRAM (PRE-DOCKED) 1,000 MG/250 ML BAG IVPB ONE (20:31)
[2021-05-18] MEDS ORDERED: POTASSIUM CHLORIDE TABS 20 MEQ TABLET.ER (FP) PO ONE (00:25)
[2021-05-18] MEDS ORDERED: KCL 10 MEQ IVPB 30 MEQ/300 ML INFUS.BAG IVPB ONE (00:36)
[2021-05-18] MEDS ORDERED: DAPTOMYCIN 500 MG in SODIUM CHLORIDE 50 ML IVPB ONE ×2 (01:00→09:00)
[2021-05-18] MEDS: SODIUM CHLORIDE 1,000 ML IV SCH ×2 (01:13→23:08)
[2021-05-18] MEDS: KCL 10 MEQ IVPB 10 MEQ/100 ML INFUS.BAG IVPB SCH ×3 (01:14→05:55)
[2021-05-18] MEDS ORDERED: PIPERACILLIN/TAZOB 2.25 GM 2.25 GM in DEXTROSE 5%-WATER - 50 ML IVPB SCH (02:00)
[2021-05-18 02:24] LABS: HEMATOCRIT 33.9 % (32.4-45.2); HEMOGLOBIN 10.4 GM/dL (10.7-15.3); MCH 27.9 pg (25.7-33.7); MCHC 30.8 g/dl (32.0-36.0); MEAN CELL VOLUME 90.5 fl (80-96); MEAN PLT VOLUME 7.9 fl (7.5-11.1); PLATELET COUNT 462 10^3/uL (134-434); RBC 3.75 M/mm3 (3.60-5.2)
[2021-05-18 02:53] LABS: ADD RBC MORPHOLOGY YES; LACTIC ACID 4.1 mmol/L (0.4-2.0)
[2021-05-18 03:56] LABS: ANISOCYTOSIS 1+; MACROCYTOSIS 1+; OVALOCYTE 1+; PLATELET ESTIMATE NORMAL; TOXIC GRANULATION 2+
[2021-05-18] MEDS: MIDODRINE HCL 5 MG TABLET GT SCH ×3 (05:54→21:08)
[2021-05-18] MEDS ORDERED: VANCOMYCIN 250 MG/5 ML ORAL SOLUTION PO SCH (06:00)
[2021-05-18] MEDS: INSULIN SLIDING SCALE (NOVOLOG) 1 VIAL SQ SCH ×3 (06:16→16:30)
[2021-05-18] MEDS: BUDESONIDE 0.5 MG/2 ML INH SUSP VIAL NEB SCH ×2 (07:30→20:50)
[2021-05-18] MEDS ORDERED: PT OWN MED DRAWER 7, Y5N ONE ×5 (09:01→21:10)
[2021-05-18] MEDS: METOPROLOL TARTRATE 25 MG TABLET (FP) GT SCH ×2 (09:44→21:08)
[2021-05-18] MEDS: MUPIROCIN 2% TOPICAL OINTMENT FOR DECOLONIZATION NS SCH ×2 (09:44→21:09)
[2021-05-18] MEDS ORDERED: PANTOPRAZOLE 40 MG TABLET PO SCH (10:00)
[2021-05-18] MEDS: levETIRAcetam 500 MG/5 ML ORAL SOLUTION (UNIT-DOSE CUPS) GT SCH ×2 (11:07→21:08)
[2021-05-18] MEDS: VANCOMYCIN 250 MG/5 ML ORAL SOLUTION GT SCH ×2 (11:09→18:27)
[2021-05-18 12:14] LABS: HEMATOCRIT 32.2 % (32.4-45.2); MCH 28.2 pg (25.7-33.7); MCHC 30.9 g/dl (32.0-36.0); MEAN PLT VOLUME 8.3 fl (7.5-11.1); PLATELET COUNT 460 10^3/uL (134-434); RBC 3.54 M/mm3 (3.60-5.2); RDW 19.4 % (11.6-15.6); WHITE BLOOD COUNT 29.9 K/mm3 (4.0-10.0)
[2021-05-18 12:33] LABS: BLOOD UREA NITROGEN 50.3 mg/dL (7-18); CALCIUM 9.1 mg/dL (8.5-10.1)
[2021-05-18 12:34] LABS: ALBUMIN 2.6 g/dl (3.4-5.0); MAGNESIUM 2.4 mg/dL (1.8-2.4)
[2021-05-18 12:37] LABS: PHOSPHOROUS 2.4 mg/dL (2.5-4.9)
[2021-05-18 12:38] LABS: BILIRUBIN,TOTAL 0.3 mg/dL (0.2-1); TOT PROT 7.3 g/dl (6.4-8.2)
[2021-05-18 15:42] LABS: ANISOCYTOSIS 1+; MACROCYTOSIS 1+; PLATELET ESTIMATE NORMAL
[2021-05-18 18:03] LABS: HEMATOCRIT 30.8 % (32.4-45.2); HEMOGLOBIN 9.6 GM/dL (10.7-15.3); MCH 28.5 pg (25.7-33.7); MCHC 31.1 g/dl (32.0-36.0); MEAN CELL VOLUME 91.6 fl (80-96); MEAN PLT VOLUME 7.9 fl (7.5-11.1); PLATELET COUNT 437 10^3/uL (134-434); RBC 3.36 M/mm3 (3.60-5.2); RDW 18.9 % (11.6-15.6); WHITE BLOOD COUNT 28.4 K/mm3 (4.0-10.0)
[2021-05-18 19:41] LABS: ANISOCYTOSIS 1+
[2021-05-18 19:42] LABS: MACROCYTOSIS 1+; TARGET CELLS 1+
[2021-05-18 19:44] LABS: PLATELET ESTIMATE NORMAL
[2021-05-18] MEDS: PANTOPRAZOLE SODIUM 40 MG VIAL IVPUSH SCH (21:07)
[2021-05-18] MEDS: CHLORHEXIDINE GLUCONATE 4% CLEANSER FOR DECOLONIZATION TP SCH (21:09)
[2021-05-19] MEDS ORDERED: PT OWN MED DRAWER 7, Y5N ONE ×4 (03:16→22:35)
[2021-05-19] MEDS ORDERED: VANCOMYCIN 250 MG/5 ML ORAL SOLUTION PO SCH (06:00)
[2021-05-19] MEDS: MIDODRINE HCL 5 MG TABLET GT SCH ×3 (06:09→21:06)
[2021-05-19] MEDS: VANCOMYCIN 250 MG/5 ML ORAL SOLUTION GT SCH ×4 (06:09→17:07)
[2021-05-19] MEDS: INSULIN SLIDING SCALE (NOVOLOG) 1 VIAL SQ SCH ×3 (06:12→17:08)
[2021-05-19] MEDS ORDERED: SODIUM CHLORIDE 250 ML IV PRN (07:00)
[2021-05-19] MEDS ORDERED: EPOETIN ALFA-EPBX 4,000 UNIT/ML VIAL SQ ONE (07:00)
[2021-05-19 07:19] LABS: BASO % 0.7 % (0-2.0); EOS % 1.1 % (0-4.5); HEMATOCRIT 30.3 % (32.4-45.2); HEMOGLOBIN 9.5 GM/dL (10.7-15.3); LYMPH % 7.6 % (8-40); MCH 28.6 pg (25.7-33.7); MCHC 31.3 g/dl (32.0-36.0); MEAN CELL VOLUME 91.2 fl (80-96); MEAN PLT VOLUME 8.4 fl (7.5-11.1); MONO % 7.2 % (3.8-10.2); NEUT % 83.4 % (42.8-82.8); PLATELET COUNT 433 10^3/uL (134-434); RBC 3.32 M/mm3 (3.60-5.2); RDW 19.1 % (11.6-15.6); WHITE BLOOD COUNT 20.4 K/mm3 (4.0-10.0)
[2021-05-19] MEDS: BUDESONIDE 0.5 MG/2 ML INH SUSP VIAL NEB SCH ×2 (07:30→20:10)
[2021-05-19 07:35] LABS: ALBUMIN 2.4 g/dl (3.4-5.0); BLOOD UREA NITROGEN 58.7 mg/dL (7-18); CALCIUM 9.2 mg/dL (8.5-10.1); MAGNESIUM 2.4 mg/dL (1.8-2.4)
[2021-05-19 07:38] LABS: CREATININE 5.3 mg/dL (0.55-1.3)
[2021-05-19 07:39] LABS: PHOSPHOROUS 3.1 mg/dL (2.5-4.9)
[2021-05-19 07:40] LABS: BILIRUBIN,TOTAL 0.6 mg/dL (0.2-1)
[2021-05-19 08:47] LABS: ANISOCYTOSIS 1+; MACROCYTOSIS 1+; PLATELET ESTIMATE NORMAL
[2021-05-19] MEDS: MUPIROCIN 2% TOPICAL OINTMENT FOR DECOLONIZATION NS SCH ×2 (10:38→21:07)
[2021-05-19] MEDS: levETIRAcetam 500 MG/5 ML ORAL SOLUTION (UNIT-DOSE CUPS) GT SCH ×2 (10:39→21:07)
[2021-05-19] MEDS: METOPROLOL TARTRATE 25 MG TABLET (FP) GT SCH ×2 (10:40→21:06)
[2021-05-19] MEDS: PANTOPRAZOLE SODIUM 40 MG VIAL IVPUSH SCH ×2 (10:42→21:07)
[2021-05-19] MEDS: METOCLOPRAMIDE HCL 10 MG/10 ML UNIT DOSE CUP PEG SCH ×2 (17:07→21:08)
[2021-05-19] MEDS: ALBUTEROL SO4 2.5/IPRATROPIUM 0.5 INH SOL 3 ML VIAL.NEB. NEB PRN (20:10)
[2021-05-19] MEDS: CHLORHEXIDINE GLUCONATE 4% CLEANSER FOR DECOLONIZATION TP SCH (21:07)
[2021-05-20] MEDS: VANCOMYCIN 250 MG/5 ML ORAL SOLUTION GT SCH ×5 (00:55→18:58)
[2021-05-20] MEDS ORDERED: PT OWN MED DRAWER 7, Y5N ONE ×2 (05:41→20:53)
[2021-05-20] MEDS: MIDODRINE HCL 5 MG TABLET GT SCH ×3 (05:42→21:23)
[2021-05-20] MEDS: INSULIN SLIDING SCALE (NOVOLOG) 1 VIAL SQ SCH ×3 (07:20→19:10)
[2021-05-20] MEDS: METOCLOPRAMIDE HCL 10 MG/10 ML UNIT DOSE CUP PEG SCH ×4 (07:25→21:23)
[2021-05-20] MEDS: ALBUTEROL SO4 2.5/IPRATROPIUM 0.5 INH SOL 3 ML VIAL.NEB. NEB PRN (08:15)
[2021-05-20] MEDS: BUDESONIDE 0.5 MG/2 ML INH SUSP VIAL NEB SCH ×2 (08:15→20:25)
[2021-05-20] MEDS: PANTOPRAZOLE SODIUM 40 MG VIAL IVPUSH SCH ×2 (10:06→21:22)
[2021-05-20] MEDS: METOPROLOL TARTRATE 25 MG TABLET (FP) GT SCH ×2 (10:06→21:22)
[2021-05-20] MEDS: VITAMIN B COMP W-C 1 EA TABLET (NEPHRO-VITE) PO SCH (10:06)
[2021-05-20] MEDS: levETIRAcetam 500 MG/5 ML ORAL SOLUTION (UNIT-DOSE CUPS) GT SCH ×2 (10:13→21:22)
[2021-05-20] MEDS: MUPIROCIN 2% TOPICAL OINTMENT FOR DECOLONIZATION NS SCH ×2 (10:13→21:21)
[2021-05-20 13:16] LABS: BASO % 0.8 % (0-2.0); HEMATOCRIT 28.6 % (32.4-45.2); HEMOGLOBIN 8.9 GM/dL (10.7-15.3); LYMPH % 5.6 % (8-40); MCH 28.3 pg (25.7-33.7); MEAN CELL VOLUME 91.4 fl (80-96); MEAN PLT VOLUME 8.4 fl (7.5-11.1); MONO % 7.2 % (3.8-10.2); NEUT % 83.4 % (42.8-82.8); PLATELET COUNT 419 10^3/uL (134-434); RBC 3.13 M/mm3 (3.60-5.2); RDW 20.1 % (11.6-15.6); WHITE BLOOD COUNT 21.3 K/mm3 (4.0-10.0)
[2021-05-20 13:43] LABS: ALBUMIN 2.5 g/dl (3.4-5.0); CALCIUM 9.6 mg/dL (8.5-10.1)
[2021-05-20 13:47] LABS: CREATININE 4.2 mg/dL (0.55-1.3)
[2021-05-20 13:48] LABS: BILIRUBIN,TOTAL 0.4 mg/dL (0.2-1); TOT PROT 7.4 g/dl (6.4-8.2)
[2021-05-20 13:51] LABS: BLOOD UREA NITROGEN 28.2 mg/dL (7-18)
[2021-05-20 14:06] LABS: ANISOCYTOSIS 2+; MACROCYTOSIS 1+; OVALOCYTE 1+; PLATELET ESTIMATE NORMAL; TARGET CELLS 1+
[2021-05-20] MEDS ORDERED: SODIUM CHLORIDE 500 ML IV STA (18:24)
[2021-05-20] MEDS: CHLORHEXIDINE GLUCONATE 4% CLEANSER FOR DECOLONIZATION TP SCH (21:22)
[2021-05-21] MEDS: VANCOMYCIN 250 MG/5 ML ORAL SOLUTION GT SCH ×4 (00:44→18:30)
[2021-05-21] MEDS: MIDODRINE HCL 5 MG TABLET GT SCH ×3 (06:44→21:40)
[2021-05-21] MEDS: METOCLOPRAMIDE HCL 10 MG/10 ML UNIT DOSE CUP PEG SCH ×5 (06:44→21:41)
[2021-05-21] MEDS: INSULIN SLIDING SCALE (NOVOLOG) 1 VIAL SQ SCH ×3 (06:44→18:29)
[2021-05-21 07:08] LABS: BASO % 0.3 % (0-2.0); EOS % 6.5 % (0-4.5); HEMATOCRIT 26.2 % (32.4-45.2); HEMOGLOBIN 8.2 GM/dL (10.7-15.3); LYMPH % 6.7 % (8-40); MCH 28.5 pg (25.7-33.7); MCHC 31.1 g/dl (32.0-36.0); MEAN CELL VOLUME 91.7 fl (80-96); MEAN PLT VOLUME 8.4 fl (7.5-11.1); MONO % 5.8 % (3.8-10.2); NEUT % 80.7 % (42.8-82.8); PLATELET COUNT 368 10^3/uL (134-434); RBC 2.86 M/mm3 (3.60-5.2); RDW 20.8 % (11.6-15.6); WHITE BLOOD COUNT 19.8 K/mm3 (4.0-10.0)
[2021-05-21 07:21] LABS: ALBUMIN 2.1 g/dl (3.4-5.0); BLOOD UREA NITROGEN 40.1 mg/dL (7-18); MAGNESIUM 2.3 mg/dL (1.8-2.4)
[2021-05-21 07:23] LABS: PHOSPHOROUS 3.6 mg/dL (2.5-4.9)
[2021-05-21 07:24] LABS: CREATININE 4.9 mg/dL (0.55-1.3)
[2021-05-21 07:25] LABS: BILIRUBIN,TOTAL 0.4 mg/dL (0.2-1); TOT PROT 6.7 g/dl (6.4-8.2)
[2021-05-21] MEDS: BUDESONIDE 0.5 MG/2 ML INH SUSP VIAL NEB SCH ×2 (07:45→20:55)
[2021-05-21 08:24] LABS: ANISOCYTOSIS 2+; MACROCYTOSIS 0; PLATELET ESTIMATE NORMAL
[2021-05-21] MEDS: VITAMIN B COMP W-C 1 EA TABLET (NEPHRO-VITE) PO SCH (10:20)
[2021-05-21] MEDS: PANTOPRAZOLE SODIUM 40 MG VIAL IVPUSH SCH (10:20)
[2021-05-21] MEDS: METOPROLOL TARTRATE 25 MG TABLET (FP) GT SCH ×2 (10:20→21:41)
[2021-05-21] MEDS: levETIRAcetam 500 MG/5 ML ORAL SOLUTION (UNIT-DOSE CUPS) GT SCH ×2 (10:21→21:40)
[2021-05-21] MEDS: MUPIROCIN 2% TOPICAL OINTMENT FOR DECOLONIZATION NS SCH ×2 (10:23→21:40)
[2021-05-21] MEDS ORDERED: PT OWN MED DRAWER 7, Y5N ONE ×2 (15:11→20:44)
[2021-05-21] MEDS: CHLORHEXIDINE GLUCONATE 4% CLEANSER FOR DECOLONIZATION TP SCH (21:40)
[2021-05-22] MEDS: MIDODRINE HCL 5 MG TABLET GT SCH ×3 (05:26→21:39)
[2021-05-22 07:16] LABS: CALCIUM 9.6 mg/dL (8.5-10.1)
[2021-05-22 07:17] LABS: ALBUMIN 2.3 g/dl (3.4-5.0); BLOOD UREA NITROGEN 54.2 mg/dL (7-18); MAGNESIUM 2.6 mg/dL (1.8-2.4)
[2021-05-22 07:20] LABS: CREATININE 6.4 mg/dL (0.55-1.3)
[2021-05-22 07:21] LABS: TOT PROT 7.2 g/dl (6.4-8.2)
[2021-05-22 07:22] LABS: BILIRUBIN,TOTAL 0.5 mg/dL (0.2-1)
[2021-05-22 07:25] LABS: BASO % 0.4 % (0-2.0); EOS % 6.2 % (0-4.5); HEMATOCRIT 31.2 % (32.4-45.2); HEMOGLOBIN 9.6 GM/dL (10.7-15.3); LYMPH % 10.3 % (8-40); MCHC 30.8 g/dl (32.0-36.0); MEAN CELL VOLUME 90.8 fl (80-96); MEAN PLT VOLUME 8.6 fl (7.5-11.1); MONO % 6.7 % (3.8-10.2); NEUT % 76.4 % (42.8-82.8); PLATELET COUNT 385 10^3/uL (134-434); RBC 3.44 M/mm3 (3.60-5.2); RDW 20.6 % (11.6-15.6); WHITE BLOOD COUNT 19.3 K/mm3 (4.0-10.0)
[2021-05-22] MEDS: INSULIN SLIDING SCALE (NOVOLOG) 1 VIAL SQ SCH ×3 (07:41→17:20)
[2021-05-22] MEDS ORDERED: PT OWN MED DRAWER 7, Y5N ONE ×5 (07:45→20:53)
[2021-05-22] MEDS: BUDESONIDE 0.5 MG/2 ML INH SUSP VIAL NEB SCH ×2 (09:01→20:45)
[2021-05-22] MEDS: METOCLOPRAMIDE HCL 10 MG/10 ML UNIT DOSE CUP PEG SCH ×2 (10:01→18:00)
[2021-05-22] MEDS: MUPIROCIN 2% TOPICAL OINTMENT FOR DECOLONIZATION NS SCH ×2 (10:02→21:39)
[2021-05-22] MEDS: levETIRAcetam 500 MG/5 ML ORAL SOLUTION (UNIT-DOSE CUPS) GT SCH ×2 (10:03→21:39)
[2021-05-22] MEDS: PANTOPRAZOLE SODIUM 40 MG VIAL IVPUSH SCH (10:04)
[2021-05-22] MEDS: METOPROLOL TARTRATE 25 MG TABLET (FP) GT SCH ×2 (10:05→21:39)
[2021-05-22] MEDS: VITAMIN B COMP W-C 1 EA TABLET (NEPHRO-VITE) PO SCH (10:05)
[2021-05-22] MEDS ORDERED: EPOETIN ALFA-EPBX 4,000 UNIT/ML VIAL IVPUSH ONE (11:25)
[2021-05-22] MEDS ORDERED: SODIUM CHLORIDE 250 ML IV PRN (11:25)
[2021-05-22] MEDS: HEPARIN NA (PORCINE) 5,000 UNITS/ML 1ML VIAL SQ SCH ×2 (14:28→21:39)
[2021-05-22] MEDS ORDERED: METOCLOPRAMIDE HCL 10 MG/10 ML UNIT DOSE CUP GT PRN (16:30)
[2021-05-22] MEDS: ALBUTEROL SO4 2.5/IPRATROPIUM 0.5 INH SOL 3 ML VIAL.NEB. NEB PRN (20:45)
[2021-05-22] MEDS: CHLORHEXIDINE GLUCONATE 4% CLEANSER FOR DECOLONIZATION TP SCH (21:39)
[2021-05-23] MEDS: HEPARIN NA (PORCINE) 5,000 UNITS/ML 1ML VIAL SQ SCH ×2 (06:01→13:44)
[2021-05-23] MEDS: MIDODRINE HCL 5 MG TABLET GT SCH ×2 (06:01→13:44)
[2021-05-23] MEDS: INSULIN SLIDING SCALE (NOVOLOG) 1 VIAL SQ SCH ×3 (06:02→16:41)
[2021-05-23] MEDS: BUDESONIDE 0.5 MG/2 ML INH SUSP VIAL NEB SCH (07:45)
[2021-05-23] MEDS ORDERED: PT OWN MED DRAWER 7, Y5N ONE ×2 (10:00→10:40)
[2021-05-23] MEDS: VITAMIN B COMP W-C 1 EA TABLET (NEPHRO-VITE) PO SCH (10:15)
[2021-05-23] MEDS: levETIRAcetam 500 MG/5 ML ORAL SOLUTION (UNIT-DOSE CUPS) GT SCH (10:15)
[2021-05-23] MEDS: METOPROLOL TARTRATE 25 MG TABLET (FP) GT SCH (10:15)
[2021-05-23] MEDS: PANTOPRAZOLE SODIUM 40 MG VIAL IVPUSH SCH (10:15)
[2021-05-23 13:19] VITALS: BMI 28.1
[2021-05-23] MEDS ORDERED: SODIUM CHLORIDE 250 ML IV PRN (14:59)
[2021-05-23] MEDS ORDERED: ALBUMIN HUMAN 25% 12.5 GM/50 ML VIAL IVPB SCH (15:00)
[2021-05-23 16:28] VITALS: PULSE 59
[2021-05-23 19:12] VITALS: BP 105/58; TEMP 99.2
[2021-05-24] MEDS ORDERED: EPOETIN ALFA-EPBX 4,000 UNIT/ML VIAL IVPUSH ONE (14:59)
== END 2021-05-23 21:12 | DRG 73 ==
LOC: JER 17:40 → JERBED 18:16 → JICU 05-18 02:39
PROVIDERS: ADMIT Internal Medicine Pulmonary Disease; ATTEND Nurse Practitioner Acute Care
PROC: 5A1D70Z Performance of Urinary Filtration, Intermittent, Less than 6 Hours Per Day (ICD-10-PCS; principal; 2021-05-19)
PROC: 5A1D70Z Performance of Urinary Filtration, Intermittent, Less than 6 Hours Per Day (ICD-10-PCS; 2021-05-22)
DX: E11.43 Type 2 diabetes mellitus with diabetic autonomic (poly)neuropathy (principal); L89.154 Pressure ulcer of sacral region, stage 4; N18.6 End stage renal disease; E87.2 Acidosis; J96.10 Chronic respiratory failure, unspecified whether with hypoxia or hypercapnia; K92.2 Gastrointestinal hemorrhage, unspecified; D72.829 Elevated white blood cell count, unspecified; K31.84 Gastroparesis; I48.91 Unspecified atrial fibrillation; J44.9 Chronic obstructive pulmonary disease, unspecified; G40.909 Epilepsy, unspecified, not intractable, without status epilepticus; I35.0 Nonrheumatic aortic (valve) stenosis; E11.22 Type 2 diabetes mellitus with diabetic chronic kidney disease; F03.90 Unspecified dementia, unspecified severity, without behavioral disturbance, psychotic disturbance, mood disturbance, and anxiety; K52.9 Noninfective gastroenteritis and colitis, unspecified; K57.90 Diverticulosis of intestine, part unspecified, without perforation or abscess without bleeding; D64.9 Anemia, unspecified; L89.622 Pressure ulcer of left heel, stage 2; L89.526 Pressure-induced deep tissue damage of left ankle; Z74.01 Bed confinement status; Z85.3 Personal history of malignant neoplasm of breast; Z93.0 Tracheostomy status; Z86.73 Personal history of transient ischemic attack (TIA), and cerebral infarction without residual deficits; Z99.2 Dependence on renal dialysis
CPT/HCPCS: 36415; 71045-TC-FY; 74174-TC; 80053; 82272; 82550; 82803; 82962; 83605; 83735; 84100; 84484; 85025; 85610; 85730; 86850; 86900; 86901; 87040; 87045; 87046; 87186; 87205; 87324; 87449; 87493; 93005; 93010; 93306-TC; 94640; 99291; C9803; G0480; J0131; J0878; J1644; Q5106; Q9967; U0003; U0005

== ENCOUNTER 2021-05-29 16:38 | Inpatient (IN) | payer OTHER ==
[2021-05-29] MEDS ORDERED: PANTOPRAZOLE SODIUM 40 MG VIAL IVPUSH ONE (19:44)
[2021-05-29] MEDS ORDERED: PANTOPRAZOLE SODIUM 80 MG/200 ML BAG IVPB ONE (19:53)
[2021-05-29 20:03] LABS: HEMATOCRIT 20.2 % (32.4-45.2); MCH 27.4 pg (25.7-33.7); MCHC 30.1 g/dl (32.0-36.0); MEAN PLT VOLUME 8.7 fl (7.5-11.1); PLATELET COUNT 410 10^3/uL (134-434); RBC 2.22 M/mm3 (3.60-5.2)
[2021-05-29 20:05] LABS: HEMOGLOBIN 6.1 GM/dL (10.7-15.3)
[2021-05-29 20:10] LABS: INR 1.34 (0.83-1.09); PROTHROMBIN TIME (PATIENT) 15.1 SEC (9.7-13.0)
[2021-05-29 20:13] LABS: ACTIVATED PTT 26.3 SECONDS (25.2-36.5)
[2021-05-29 20:19] LABS: ALBUMIN 2.1 g/dl (3.4-5.0); CALCIUM 8.4 mg/dL (8.5-10.1)
[2021-05-29 20:22] LABS: CREATININE 4.2 mg/dL (0.55-1.3)
[2021-05-29 20:24] LABS: BILIRUBIN,TOTAL 0.2 mg/dL (0.2-1); TOT PROT 5.6 g/dl (6.4-8.2)
[2021-05-29 20:49] LABS: BLOOD UREA NITROGEN 81.9 mg/dL (7-18)
[2021-05-29] MEDS ORDERED: MEROPENEM 1 GM in DEXTROSE 5%-WATER 100 ML IVPB ONE (21:44)
[2021-05-29] MEDS ORDERED: LACTATED RINGERS SOLUTION 1000 ML INFUS.BAG IV ONE (22:05)
[2021-05-29] MEDS ORDERED: MEROPENEM 1 GM VIAL (RESTRICTED TO ID) IVPB ONE (22:05)
[2021-05-29 22:21] LABS: ANISOCYTOSIS 2+; MACROCYTOSIS 1+; OVALOCYTE 1+
[2021-05-29] MEDS ORDERED: VANCOMYCIN 1 GM in D5W (PRE-DOCKED) 1,000 MG/250 ML IVPB ONE (23:49)
[2021-05-30] MEDS ORDERED: ALBUTEROL SO4 2.5/IPRATROPIUM 0.5 INH SOL 3 ML VIAL.NEB. NEB PRN (00:27)
[2021-05-30] MEDS: PANTOPRAZOLE SODIUM 80 MG in SODIUM CHLORIDE 100 ML IVPB SCH ×3 (04:06→19:14)
[2021-05-30] MEDS ORDERED: VANCOMYCIN 1 GM in D5W (PRE-DOCKED) 1,000 MG/250 ML IVPB ONE (06:00)
[2021-05-30] MEDS ORDERED: INSULIN SLIDING SCALE (NOVOLOG) 1 VIAL SQ SCH (07:00)
[2021-05-30 08:06] LABS: HEMATOCRIT 34.5 % (32.4-45.2); HEMOGLOBIN 10.9 GM/dL (10.7-15.3); MCH 28.1 pg (25.7-33.7); MCHC 31.6 g/dl (32.0-36.0); MEAN PLT VOLUME 9.4 fl (7.5-11.1); PLATELET COUNT 267 10^3/uL (134-434); RBC 3.88 M/mm3 (3.60-5.2); RDW 16.7 % (11.6-15.6)
[2021-05-30] MEDS: BUDESONIDE 0.5 MG/2 ML INH SUSP VIAL NEB SCH ×2 (08:12→20:41)
[2021-05-30 08:13] LABS: WHITE BLOOD COUNT 40.8 K/mm3 (4.0-10.0)
[2021-05-30 08:17] LABS: ADD RBC MORPHOLOGY YES
[2021-05-30 08:35] LABS: CALCIUM 8.3 mg/dL (8.5-10.1)
[2021-05-30 08:36] LABS: BLOOD UREA NITROGEN 93.5 mg/dL (7-18)
[2021-05-30 08:37] LABS: ALBUMIN 1.9 g/dl (3.4-5.0); MAGNESIUM 2.4 mg/dL (1.8-2.4)
[2021-05-30 08:39] LABS: CREATININE 4.7 mg/dL (0.55-1.3)
[2021-05-30 08:40] LABS: PHOSPHOROUS 3.2 mg/dL (2.5-4.9)
[2021-05-30 08:41] LABS: BILIRUBIN,TOTAL 0.6 mg/dL (0.2-1); TOT PROT 5.7 g/dl (6.4-8.2)
[2021-05-30 09:44] LABS: ANISOCYTOSIS 1+; MACROCYTOSIS 0; PLATELET ESTIMATE NORMAL
[2021-05-30 09:56] LABS: HEMATOCRIT 38.6 % (32.4-45.2); MCH 28.4 pg (25.7-33.7); MCHC 31.1 g/dl (32.0-36.0); MEAN CELL VOLUME 91.2 fl (80-96); MEAN PLT VOLUME 8.7 fl (7.5-11.1); PLATELET COUNT 253 10^3/uL (134-434); RBC 4.23 M/mm3 (3.60-5.2); RDW 17.1 % (11.6-15.6)
[2021-05-30] MEDS ORDERED: PHYTONADIONE 10 MG/1 ML AMP IVPB ONE (10:00)
[2021-05-30] MEDS ORDERED: levETIRAcetam 250 MG TABLET PO SCH (10:00)
[2021-05-30] MEDS ORDERED: HUM PROTHROMBIN CPLX(PCC)4FACT 1,000 UNIT/40 ML VIAL IVPB ONE (10:00)
[2021-05-30 10:20] LABS: WHITE BLOOD COUNT 44.6 K/mm3 (4.0-10.0)
[2021-05-30 10:23] LABS: ANISOCYTOSIS 1+; MACROCYTOSIS 0; PLATELET ESTIMATE NORMAL; TARGET CELLS 1+
[2021-05-30] MEDS: MEROPENEM 500 MG in DEXTROSE 5%-WATER 100 ML IVPB SCH ×2 (10:30→22:57)
[2021-05-30] MEDS ORDERED: MEROPENEM 500 MG VIAL (RESTRICTED TO ID) IVPB ONE ×2 (11:30→22:08)
[2021-05-30] MEDS ORDERED: DEXTROSE 5%-WATER 100 ML IVPB ONE ×2 (11:30→22:08)
[2021-05-30] MEDS: MIDODRINE HCL 5 MG TABLET PO SCH ×2 (15:02→18:19)
[2021-05-30] MEDS ORDERED: DESMOPRESSIN ACETATE 4 MCG/ML AMP IVPB ONE (16:02)
[2021-05-30] MEDS ORDERED: SODIUM CHLORIDE 250 ML IV PRN (16:05)
[2021-05-30] MEDS: levETIRAcetam 500 MG/5 ML INJECTION VIAL IVPB SCH ×2 (16:49→22:57)
[2021-05-30] MEDS: MUPIROCIN 2% TOPICAL OINTMENT FOR DECOLONIZATION NS SCH ×2 (16:49→22:58)
[2021-05-30] MEDS ORDERED: CHLORHEXIDINE GLUCONATE 4% CLEANSER FOR DECOLONIZATION TP SCH (22:00)
[2021-05-31] MEDS: BUDESONIDE 0.5 MG/2 ML INH SUSP VIAL NEB SCH (08:25)
[2021-05-31] MEDS: PANTOPRAZOLE SODIUM 40 MG VIAL IVPUSH SCH ×2 (10:55→21:47)
[2021-05-31] MEDS: MIDODRINE HCL 5 MG TABLET PO SCH ×2 (10:55→14:12)
[2021-05-31] MEDS: levETIRAcetam 500 MG/5 ML INJECTION VIAL IVPB SCH ×2 (11:09→21:47)
[2021-05-31] MEDS: MUPIROCIN 2% TOPICAL OINTMENT FOR DECOLONIZATION NS SCH (11:09)
[2021-05-31] MEDS: MEROPENEM 500 MG in DEXTROSE 5%-WATER 100 ML IVPB SCH (17:35)
[2021-05-31] MEDS: PANTOPRAZOLE SODIUM 80 MG in SODIUM CHLORIDE 100 ML IVPB SCH (17:35)
[2021-05-31] MEDS ORDERED: ALBUTEROL SO4 2.5/IPRATROPIUM 0.5 INH SOL 3 ML VIAL.NEB. NEB PRN (18:15)
[2021-05-31] MEDS ORDERED: CHLORHEXIDINE GLUCONATE 4% CLEANSER FOR DECOLONIZATION TP SCH (22:00)
[2021-05-31] MEDS ORDERED: MUPIROCIN 2% TOPICAL OINTMENT FOR DECOLONIZATION NS SCH (22:00)
[2021-06-01] MEDS: levETIRAcetam 500 MG/5 ML INJECTION VIAL IVPB SCH ×2 (11:01→21:48)
[2021-06-01] MEDS: PANTOPRAZOLE SODIUM 40 MG VIAL IVPUSH SCH ×2 (11:02→21:48)
[2021-06-01] MEDS ORDERED: SODIUM CHLORIDE 250 ML IV PRN (19:11)
[2021-06-01] MEDS ORDERED: EPOETIN ALFA-EPBX 4,000 UNIT/ML VIAL SQ ONE (19:11)
[2021-06-02] MEDS ORDERED: EPOETIN ALFA-EPBX 4,000 UNIT/ML VIAL SQ ONE (08:00)
[2021-06-02 09:03] LABS: HEMATOCRIT 22.5 % (32.4-45.2); HEMOGLOBIN 7.4 GM/dL (10.7-15.3); MCH 29.3 pg (25.7-33.7); MCHC 32.7 g/dl (32.0-36.0); MEAN CELL VOLUME 89.6 fl (80-96); MEAN PLT VOLUME 7.5 fl (7.5-11.1); PLATELET COUNT 300 10^3/uL (134-434); RBC 2.52 M/mm3 (3.60-5.2); RDW 18.1 % (11.6-15.6); WHITE BLOOD COUNT 27.2 K/mm3 (4.0-10.0)
[2021-06-02 09:09] LABS: INR 1.03 (0.83-1.09); PROTHROMBIN TIME (PATIENT) 11.9 SEC (9.7-13.0)
[2021-06-02 09:12] LABS: ACTIVATED PTT 25.8 SECONDS (25.2-36.5)
[2021-06-02 09:25] LABS: CHLORIDE 105 mmol/L (98-107); SODIUM 141 mmol/L (136-145)
[2021-06-02 09:28] LABS: ANION GAP 16 MMOL/L (8-16); CO2 20 mmol/L (21-32); GLUCOSE,RANDOM 64 mg/dL (74-106)
[2021-06-02 09:29] LABS: ALBUMIN 2.1 g/dl (3.4-5.0); MAGNESIUM 2.6 mg/dL (1.8-2.4)
[2021-06-02] MEDS ORDERED: ALBUMIN HUMAN 25% 12.5 GM/50 ML VIAL IVPB ONE (09:30)
[2021-06-02 09:31] LABS: SGPT/ALT 182 U/L (13-61)
[2021-06-02 09:32] LABS: SGOT/AST 120 U/L (15-37)
[2021-06-02 09:33] LABS: BILIRUBIN,TOTAL 0.5 mg/dL (0.2-1); TOT PROT 5.6 g/dl (6.4-8.2)
[2021-06-02 09:34] LABS: ALK PHOS 137 U/L (45-117)
[2021-06-02 09:35] LABS: BLOOD UREA NITROGEN 134.2 mg/dL (7-18)
[2021-06-02 12:03] LABS: ANISOCYTOSIS 2+; MACROCYTOSIS 1+; PLATELET ESTIMATE NORMAL
[2021-06-02] MEDS: PANTOPRAZOLE SODIUM 40 MG VIAL IVPUSH SCH ×2 (13:21→22:53)
[2021-06-02] MEDS: levETIRAcetam 500 MG/5 ML INJECTION VIAL IVPB SCH ×2 (13:21→22:53)
[2021-06-03] MEDS ORDERED: PT OWN MED DRAWER 7, Y5N ONE (00:23)
[2021-06-03] MEDS: PANTOPRAZOLE SODIUM 40 MG VIAL IVPUSH SCH ×2 (11:46→21:37)
[2021-06-03] MEDS: levETIRAcetam 500 MG/5 ML INJECTION VIAL IVPB SCH ×2 (11:46→21:37)
[2021-06-03 12:30] LABS: CALCIUM 8.9 mg/dL (8.5-10.1)
[2021-06-03 12:31] LABS: HEMATOCRIT 31.6 % (32.4-45.2); HEMOGLOBIN 10.4 GM/dL (10.7-15.3); MCH 30.3 pg (25.7-33.7); MCHC 32.9 g/dl (32.0-36.0); MEAN CELL VOLUME 92.1 fl (80-96); MEAN PLT VOLUME 8.5 fl (7.5-11.1); PLATELET COUNT 220 10^3/uL (134-434); RBC 3.43 M/mm3 (3.60-5.2); RDW 17.8 % (11.6-15.6); WHITE BLOOD COUNT 20.5 K/mm3 (4.0-10.0)
[2021-06-03 12:34] LABS: CREATININE 3.9 mg/dL (0.55-1.3); PHOSPHOROUS 3.4 mg/dL (2.5-4.9)
[2021-06-03 12:35] LABS: BILIRUBIN,TOTAL 0.6 mg/dL (0.2-1)
[2021-06-03 12:37] LABS: TOT PROT 5.8 g/dl (6.4-8.2)
[2021-06-03 12:40] LABS: ALBUMIN 2.6 g/dl (3.4-5.0); BLOOD UREA NITROGEN 44.7 mg/dL (7-18)
[2021-06-03 14:28] LABS: ANISOCYTOSIS 0; HELMET CELLS 0; HOWELL-JOLLY BODIES 0; MACROCYTOSIS 0; OVALOCYTE 0; PLATELET ESTIMATE NORMAL; ROULEAU 0; SICKELED CELLS 0; TARGET CELLS 0; TEAR DROP CELLS 0; TOXIC GRANULATION 0
[2021-06-04] MEDS ORDERED: DEXTROSE 50%-WATER - 25 GM/50 ML VIAL IVPUSH PRN (06:56)
[2021-06-04] MEDS ORDERED: DEXTROSE 50%-WATER - 25 GM/50 ML VIAL ONE (07:03)
[2021-06-04] MEDS: levETIRAcetam 500 MG/5 ML INJECTION VIAL IVPB SCH ×2 (09:28→21:44)
[2021-06-04] MEDS: PANTOPRAZOLE SODIUM 40 MG VIAL IVPUSH SCH ×2 (09:28→21:44)
[2021-06-04 12:41] LABS: HEMATOCRIT 32.7 % (32.4-45.2); HEMOGLOBIN 10.8 GM/dL (10.7-15.3); MCH 30.5 pg (25.7-33.7); MCHC 33.1 g/dl (32.0-36.0); MEAN CELL VOLUME 92.3 fl (80-96); MEAN PLT VOLUME 7.6 fl (7.5-11.1); PLATELET COUNT 292 10^3/uL (134-434); RBC 3.54 M/mm3 (3.60-5.2); RDW 18.3 % (11.6-15.6); WHITE BLOOD COUNT 17.7 K/mm3 (4.0-10.0)
[2021-06-04 12:59] LABS: MAGNESIUM 2.2 mg/dL (1.8-2.4)
[2021-06-04 13:03] LABS: PHOSPHOROUS 4.8 mg/dL (2.5-4.9)
[2021-06-04 15:40] LABS: ANISOCYTOSIS 1+; MACROCYTOSIS 0; PLATELET ESTIMATE NORMAL
[2021-06-04 16:34] VITALS: BMI 28.5
[2021-06-05] MEDS ORDERED: SODIUM CHLORIDE 250 ML IV PRN (08:07)
[2021-06-05] MEDS: ALBUMIN HUMAN 25% 12.5 GM/50 ML VIAL IVPB SCH ×4 (09:15→10:47)
[2021-06-05] MEDS ORDERED: EPOETIN ALFA-EPBX 4,000 UNIT/ML VIAL SQ ONE (09:15)
[2021-06-05 09:49] LABS: ALBUMIN 2.1 g/dl (3.4-5.0); CALCIUM 7.8 mg/dL (8.5-10.1)
[2021-06-05 09:50] LABS: BLOOD UREA NITROGEN 32.3 mg/dL (7-18)
[2021-06-05 09:53] LABS: CREATININE 3.2 mg/dL (0.55-1.3)
[2021-06-05 09:54] LABS: BILIRUBIN,TOTAL 0.5 mg/dL (0.2-1)
[2021-06-05 09:55] LABS: TOT PROT 5.1 g/dl (6.4-8.2)
[2021-06-05] MEDS: AMINO ACIDS/PROTEIN HYDROLYS 30 ML LIQUID.PKT GT SCH ×2 (09:57→16:43)
[2021-06-05] MEDS: levETIRAcetam 500 MG/5 ML INJECTION VIAL IVPB SCH ×2 (10:31→23:50)
[2021-06-05] MEDS: PANTOPRAZOLE SODIUM 40 MG VIAL IVPUSH SCH ×2 (10:31→23:51)
[2021-06-05] MEDS ORDERED: PT OWN MED DRAWER 7, Y5N ONE (11:11)
[2021-06-06] MEDS: AMINO ACIDS/PROTEIN HYDROLYS 30 ML LIQUID.PKT GT SCH ×2 (08:18→17:25)
[2021-06-06] MEDS: PANTOPRAZOLE SODIUM 40 MG VIAL IVPUSH SCH ×2 (09:31→22:49)
[2021-06-06] MEDS: levETIRAcetam 500 MG/5 ML INJECTION VIAL IVPB SCH ×2 (09:31→22:49)
[2021-06-06] MEDS: COLLAGENASE CLOSTRIDIUM HIST. 30 GRAMS TUBE TP SCH (11:58)
[2021-06-06] MEDS ORDERED: SODIUM CHLORIDE 250 ML IV PRN (15:14)
[2021-06-07] MEDS ORDERED: EPOETIN ALFA-EPBX 4,000 UNIT/ML VIAL IVPUSH ONE (07:45)
[2021-06-07] MEDS: AMINO ACIDS/PROTEIN HYDROLYS 30 ML LIQUID.PKT GT SCH ×3 (08:53→17:19)
[2021-06-07 10:05] LABS: BASO % 0.5 % (0-2.0); EOS % 4.8 % (0-4.5); HEMOGLOBIN 9.5 GM/dL (10.7-15.3); MCH 29.6 pg (25.7-33.7); MCHC 31.6 g/dl (32.0-36.0); MEAN CELL VOLUME 93.5 fl (80-96); MEAN PLT VOLUME 7.9 fl (7.5-11.1); NEUT % 81.7 % (42.8-82.8); PLATELET COUNT 343 10^3/uL (134-434); RBC 3.21 M/mm3 (3.60-5.2); RDW 18.6 % (11.6-15.6); WHITE BLOOD COUNT 18.9 K/mm3 (4.0-10.0)
[2021-06-07 10:24] LABS: CALCIUM 8.7 mg/dL (8.5-10.1)
[2021-06-07 10:25] LABS: ALBUMIN 2.2 g/dl (3.4-5.0); BLOOD UREA NITROGEN 51.5 mg/dL (7-18)
[2021-06-07 10:28] LABS: CREATININE 4.4 mg/dL (0.55-1.3)
[2021-06-07 10:30] LABS: BILIRUBIN,TOTAL 0.7 mg/dL (0.2-1); TOT PROT 5.6 g/dl (6.4-8.2)
[2021-06-07] MEDS: levETIRAcetam 500 MG/5 ML INJECTION VIAL IVPB SCH ×2 (11:01→23:23)
[2021-06-07] MEDS: PANTOPRAZOLE SODIUM 40 MG VIAL IVPUSH SCH ×2 (11:01→23:23)
[2021-06-07] MEDS: COLLAGENASE CLOSTRIDIUM HIST. 30 GRAMS TUBE TP SCH (11:04)
[2021-06-07] MEDS ORDERED: POTASSIUM CHLORIDE ORAL LIQUID 20 MEQ/15 ML PO ONE (12:12)
[2021-06-08] MEDS: PANTOPRAZOLE SODIUM 40 MG VIAL IVPUSH SCH (11:58)
[2021-06-08] MEDS: COLLAGENASE CLOSTRIDIUM HIST. 30 GRAMS TUBE TP SCH (11:59)
[2021-06-08] MEDS: AMINO ACIDS/PROTEIN HYDROLYS 30 ML LIQUID.PKT GT SCH (11:59)
[2021-06-08] MEDS: levETIRAcetam 500 MG/5 ML INJECTION VIAL IVPB SCH (11:59)
[2021-06-08 13:45] VITALS: BP 126/48; PULSE 74; TEMP 98.8
[2021-06-08] MEDS ORDERED: SODIUM CHLORIDE 250 ML IV PRN (16:02)
[2021-06-08] MEDS ORDERED: EPOETIN ALFA-EPBX 2,000 UNIT/ML VIAL IVPUSH ONE (16:02)
== END 2021-06-08 16:34 | DRG 377 ==
LOC: JER 16:38 → JERBED 21:52 → JICU 05-30 05:21 → J5S 05-31 18:01
PROVIDERS: ADMIT Internal Medicine Pulmonary Disease; ATTEND Internal Medicine
PROC: 30233N1 Transfusion of Nonautologous Red Blood Cells into Peripheral Vein, Percutaneous Approach (ICD-10-PCS; principal; 2021-05-29)
PROC: 5A1D70Z Performance of Urinary Filtration, Intermittent, Less than 6 Hours Per Day (ICD-10-PCS; 2021-06-02)
PROC: 5A1D70Z Performance of Urinary Filtration, Intermittent, Less than 6 Hours Per Day (ICD-10-PCS; 2021-06-05)
PROC: 5A1D70Z Performance of Urinary Filtration, Intermittent, Less than 6 Hours Per Day (ICD-10-PCS; 2021-06-07)
DX: K92.2 Gastrointestinal hemorrhage, unspecified (principal); L89.154 Pressure ulcer of sacral region, stage 4; N18.6 End stage renal disease; R53.2 Functional quadriplegia; I12.0 Hypertensive chronic kidney disease with stage 5 chronic kidney disease or end stage renal disease; J96.10 Chronic respiratory failure, unspecified whether with hypoxia or hypercapnia; D62 Acute posthemorrhagic anemia; I48.91 Unspecified atrial fibrillation; J44.9 Chronic obstructive pulmonary disease, unspecified; I35.0 Nonrheumatic aortic (valve) stenosis; G40.909 Epilepsy, unspecified, not intractable, without status epilepticus; D72.829 Elevated white blood cell count, unspecified; E11.22 Type 2 diabetes mellitus with diabetic chronic kidney disease; F03.90 Unspecified dementia, unspecified severity, without behavioral disturbance, psychotic disturbance, mood disturbance, and anxiety; M16.11 Unilateral primary osteoarthritis, right hip; K57.90 Diverticulosis of intestine, part unspecified, without perforation or abscess without bleeding; Z66 Do not resuscitate; Z99.2 Dependence on renal dialysis; Z85.3 Personal history of malignant neoplasm of breast; Z86.73 Personal history of transient ischemic attack (TIA), and cerebral infarction without residual deficits; Z93.1 Gastrostomy status; Z93.0 Tracheostomy status; Z99.81 Dependence on supplemental oxygen; Z88.0 Allergy status to penicillin
CPT/HCPCS: 36415; 36430; 71045-TC-FY; 71250-TC; 74176-TC; 80053; 80177; 82962; 83735; 84100; 85025; 85610; 85730; 86803; 86850; 86900; 86901; 86922; 87040; 87070; 87186; 87205; 87324; 87340; 87449; 93005; 93010; 94640; 99285-25; C9803; J2597; J7168; P9047; P9058; Q5106; U0003; U0005